=== PATIENT | female | born 1950 | race Caucasian/White ===

== ENCOUNTER → 2019-10-12 08:14 | Outpatient (CLI) | payer MEDICARE, OTHER, SELFPAY ==
--- NOTE | 2019-10-12 | DI.US.S_ITS ---
PROCEDURE: US PELVIC COMPLETE INDICATIONS: PMB TECHNIQUE: Real-time scanning was performed of the pelvic organs, with image documentation. Additional endovaginal scanning was necessary due to incomplete visualization of the adnexal and endometrial structures by transabdominal scanning. COMPARISON: [facility], CT, IVP (ABD & PEL WWO CONTRAST), 07/20/2016, 15:30. FINDINGS: Transabdominal scanning: Limited scanning through the kidneys shows no hydronephrosis. No pathologic free abdominal or pelvic fluid. Endovaginal scanning: Uterus: Uterus is normal in size at 6.9 x 3.0 cm. The endometrium measures 6.6 mm in combined thickness. Endometrium is heterogeneous with multiple small echogenic foci. 2 small intramural fibroids, largest measuring up to 1.2 cm. Ovaries: Ovaries not identified. IMPRESSION: Thickening of the endometrial complex in this postmenopausal female with history of vaginal bleeding as well as diffuse heterogeneity. Underlying neoplasm cannot be excluded and endometrial biopsy recommended. 2 small intramural fibroids. Dictated by: Milo VEGAS Interpreted: Roro Shahid MD on 10/12/2019 at 9:17 Approved by: Roro Shahid M.D. on 10/12/2019 at 14:09
== END ==
PROVIDERS: Family Provider Internal Medicine; Visit Provider Nurse Practitioner Women's Health
DX: N95.0 Postmenopausal bleeding (principal); D25.1 Intramural leiomyoma of uterus; R93.89 Abnormal findings on diagnostic imaging of other specified body structures
CPT/HCPCS: 76830; 76856

== ENCOUNTER → 2020-02-26 14:21 | Outpatient (CLI) | payer MEDICARE, OTHER, SELFPAY | PROVIDERS: Family Provider Internal Medicine; Referring Provider Obstetrics & Gynecology; Visit Provider Obstetrics & Gynecology | DX: Z01.810 Encounter for preprocedural cardiovascular examination (principal); Z01.10 Encounter for examination of ears and hearing without abnormal findings | CPT/HCPCS: 93005; 93010 ==

== ENCOUNTER → 2020-06-02 19:02 | Outpatient (CLI) | payer MEDICARE, OTHER, SELFPAY ==
--- NOTE | 2020-06-02 19:04 | DI.MRI.S_ITS ---
PROCEDURE: MR LUMBAR SPINE WO CON INDICATIONS: RIGHT LEG WEAKNESS TECHNIQUE: Noncontrast sagittal T1 spin echo and T2 fast echo, sagittal STIR, axial T1 and T2 fast spin echo through the lumbar spine. In cases with scoliosis, additional coronal T2 fast spin echo may be performed. COMPARISON: [facility], CT, IVP (ABD & PEL WWO CONTRAST), 07/20/2016, 15:30. FINDINGS: Image quality: Excellent. Alignment and Curvature: Trace degenerative retrolisthesis of L4 on L5. Trace degenerative anterolisthesis of L3 on L4. Trace degenerative retrolisthesis of T12 on L1. Please note that numbering indicates the axial imaging as having started at T11-T12, and that L5 is partially sacralized. Bone Marrow: Marrow is of normal overall signal. No acute vertebral body compression fractures. Spinal Cord: Conus medullaris terminates at the top of L1 level. Visualized cord demonstrates normal signal and size. Paraspinous Soft Tissues: No paravertebral masses. T11-T12: No canal stenosis or foraminal stenosis. T12-L1: Moderate diffuse disc bulge. No canal stenosis or foraminal stenosis. L1-L2: Mild facet hypertrophy. Minimal disc bulge. No canal stenosis or foraminal stenosis. L2-L3: Mild disc bulge. Facet and ligament hypertrophy. Mild canal stenosis. No foraminal stenosis. L3-L4: There is a large free disc fragment which has migrated superior to the disc space, eccentric to the right. It measures approximately 1.4 x 1.7 x 0.6 cm. It impinges the right L3 nerve root in the right lateral recess and entrance into the foramen, and posteriorly deviates the right L4 nerve root in the right lateral recess. At the level of the disc, there is moderate diffuse disc bulge and prominent facet and ligament hypertrophy resulting in moderate to severe canal stenosis. There is mild bilateral foraminal narrowing. L4-L5: Moderate to severe disc height loss, chronic. Broad-based mild left paracentral disc protrusion deviating the left L5 nerve root posteriorly in the left lateral recess. Moderate bilateral foraminal narrowing. L5-S1: Partially sacralized L5 vertebra. No canal stenosis. IMPRESSION: 1. Please note that the numbering assumes that the vertebral body is labeled as L5 is partially sacralized, and that axial imaging is labeled as having occurred from T11-T12 through L5-S1. Careful correlation for correct surgical level is necessary. 2. At L3-L4, there is a large free disc fragment which has migrated superiorly into the right lateral recess. It impinges on the right L3 root above the foramen and at the entrance to the foramen, and posteriorly deviates the right L4 nerve root in the right lateral recess. At the level of the disc space at L3-L4 there is moderate to severe multifactorial canal stenosis. New line 3. At L4-L5, there is a broad-based mild left paracentral disc protrusion which deviates the left L5 nerve root in the left lateral recess. Dictated by: Jayjay Trejo M.D. on 06/03/2020 at 9:33 Approved by: Jayjay Trejo M.D. on 06/03/2020 at 9:47
--- NOTE | 2020-06-02 19:04 | DI.MRI.S_ITS ---
PROCEDURE: MR HEAD/BRAIN WO CON INDICATIONS: RIGHT LEG WEAKNESS TECHNIQUE: Noncontrast axial T1 spin echo, axial T2 fast spin echo, sagittal and axial FLAIR, coronal T2 fast spin echo, axial gradient echo, axial diffusion and ADC through the brain. COMPARISON: None. FINDINGS: Image quality: Excellent. CSF Spaces: Basal cisterns are patent. No extra-axial fluid collections. Ventricles are normal in size and shape. Brain: No intracranial masses or hemorrhage. Leos/white matter interface is normal. Brainstem appears normal. Diffusion-weighted images demonstrate no acute ischemic insult. No chronic ischemic insults. Normal intravascular flow voids are present. Skull and face: Calvarium has normal marrow signal. Orbits appear normal. Sinuses: Sinuses and mastoids are clear. IMPRESSION: Normal for age, source of current right leg weakness symptoms is not seen. Dictated by: Jamaal Bowman M.D. on 06/03/2020 at 9:25 Approved by: Jamaal Bowman M.D. on 06/03/2020 at 9:26
== END ==
PROVIDERS: Family Provider Internal Medicine; Referring Provider Internal Medicine; Visit Provider Internal Medicine
DX: R29.898 Other symptoms and signs involving the musculoskeletal system (principal); M48.061 Spinal stenosis, lumbar region without neurogenic claudication; M51.26 Other intervertebral disc displacement, lumbar region
CPT/HCPCS: 70551; 72148

== ENCOUNTER → 2020-06-06 16:33 | Outpatient (CLI) | payer MEDICARE, OTHER, SELFPAY ==
--- NOTE | 2020-06-06 | DI.RAD.S_ITS ---
PROCEDURE: XR LUMBAR SPINE 2-3V INDICATIONS: LOW BACK PAIN injury one week ago TECHNIQUE: 3 views of the lumbar spine were acquired. COMPARISON: [facility], MR, MR LUMBAR SPINE WO CON, 06/02/2020, 19:36. FINDINGS: Bones: This patient has transitional lumbar anatomy. For the purposes of this examination, the level with the last visualized disc space is considered to be L5-S1. This numbering scheme is does not remain consistent with a prior lumbar report. By this numbering scheme, the L5 level is highly sacralized. Mild levoconvex scoliotic curvature is noted. Mild retrolisthesis is seen at the T12-L1 level. Minimal anterolisthesis is seen at L3-L4. There is at least moderate disc space narrowing seen at L4-L5. Mild disc space narrowing is seen at L3-L4. L5-S1 disc level is a rudimentary, transitional disc. Lower lumbar spine facet arthropathy is seen. No displaced fractures are seen. No suspicious lytic or blastic lesions are seen. Soft tissues: Overlying bowel gas pattern is normal. No suspicious soft tissue calcifications. IMPRESSION: No acute fractures are seen. If there is point tenderness (or other clinical suspicion for a fracture not seen on these images) please consider a dedicated CT for further evaluation. Degenerative changes are seen, which are worst at L4-L5. Transitional lumbar anatomy. Mild levoconvex scoliotic curvature is noted. Dictated by: Golden Drake M.D. on 06/06/2020 at 16:47 Approved by: Golden Drake M.D. on 06/06/2020 at 16:49
== END ==
PROVIDERS: Family Provider Internal Medicine; Referring Provider Internal Medicine; Visit Provider Internal Medicine
DX: M54.5 Low back pain (principal); M47.816 Spondylosis without myelopathy or radiculopathy, lumbar region
CPT/HCPCS: 72100

== ENCOUNTER → 2020-06-07 09:20 | Outpatient (CLI) | payer MEDICARE, OTHER, SELFPAY ==
[2020-06-07 10:17] LABS: Hematocrit 43.6 % (36-46); Hemoglobin 14.4 g/dL (12.0-16.0); Mean Corpuscular Hemoglobin 30.3 PG (26-34); Mean Corpuscular Volume 91.7 fL (80-100); Platelet Count 226 X10^3/uL (150-400); Red Blood Cell Count 4.75 X10^6/uL (4.0-5.2); Red Cell Distribution Width 13.6 % (11.6-14.8); White Blood Cell Count 4.9 X10^3/uL (4.5-11.0)
[2020-06-07 10:32] LABS: Alanine Aminotransferase 57 IU/L (<35); Albumin 4.1 g/dL (3.5-5.0); Albumin Globulin Ratio 1.4 (1.0-2.8); Alkaline Phosphatase 73 U/L (38-126); Aspartate Aminotransferase 47 IU/L (14-36); BUN Creatinine Ratio 25.6 (6-22); Bilirubin Total 1.3 mg/dL (0.2-1.3); Blood Urea Nitrogen 21 mg/dL (7-17); Carbon Dioxide 28 mmol/L (22-32); Chloride 106 mmol/L (98-107); Cholesterol 227 mg/dL (140-199); Estimated Glomerular Filt Rate > 60.0 mL/min (>60); Globulin 2.9 g/dL (1.7-4.1); Glucose 104 mg/dL (80-110); HDL Cholesterol 65 mg/dL (40-60); HEMOLYSIS < 15 (0-50); LDL Cholesterol Calculated 143 mg/dL (<100); Potassium 4.2 mmol/L (3.4-5.1); Sodium 137 mmol/L (137-145); Triglycerides 94 mg/dL (35-150)
[2020-06-07 11:05] LABS: Vitamin D 25 Hydroxy (D3) 40.3 ng/mL (30.0-100.0)
[2020-06-07 11:06] LABS: Free T3, Triiodothyronine Free 2.93 pg/mL (2.77-5.27); Free T4, Direct Thyroxine 1.07 ng/dL (0.78-2.19)
[2020-06-07 11:19] LABS: Thyroid Stimulating Hormone 1.38 uIU/mL (0.47-4.68)
== END ==
PROVIDERS: Family Provider Internal Medicine; PCP Internal Medicine; Referring Provider Internal Medicine; Visit Provider Internal Medicine
DX: R53.83 Other fatigue (principal); E78.5 Hyperlipidemia, unspecified; M79.604 Pain in right leg; E55.9 Vitamin D deficiency, unspecified
CPT/HCPCS: 36415; 80053; 80061; 82306; 84439; 84443; 84481; 85027

== ENCOUNTER → 2020-06-29 18:56 | Outpatient (ROUT) | payer MEDICARE, OTHER, SELFPAY ==
[2020-07-01 06:00] LABS: HBsAg Screen Negative (Negative); Hep A AB IgM Negative (Negative); Hepatitis A Ab, Total Negative (Negative); Hepatitis B Core Antibody IgM Negative (Negative); Hepatitis B Core Total Negative (Negative); Hepatitis B Surface AB, Qual Non Reactive (.); Hepatitis C Virus Ab <0.1 s/co ratio (0.0-0.9)
== END ==
PROVIDERS: Family Provider Internal Medicine; PCP Internal Medicine; Visit Provider Internal Medicine
DX: R94.5 Abnormal results of liver function studies (principal)
CPT/HCPCS: 80074; 86704; 86706; 86708

== ENCOUNTER → 2020-07-18 09:05 | Outpatient (CLI) | payer MEDICARE, OTHER, SELFPAY ==
--- NOTE | 2020-07-18 | DI.US.S_ITS ---
ULTRASOUND OF LEFT BREAST: 07/18/2020 CLINICAL: Left diffuse breast pain 9-6 o'clock and patient returns today to evaluate a focal asymmetry in left breast. Comparison is made to exams dated: 07/18/2020 mammogram - [facility], 06/05/2019 mammogram, 07/08/2017 mammogram, and 06/27/2016 mammogram - [facility]. Color flow ultrasound of the left breast was performed. Leos scale images of the real-time examination were reviewed. There is a cyst in the left breast at 3 o'clock posterior depth. This cyst displays internal echoes and posterior acoustic enhancement. IMPRESSION: PROBABLY BENIGN The cyst in the left breast is consistent with a complex cyst and is probably benign. A follow-up left mammogram and an ultrasound in 6 months is recommended to demonstrate stability. This exam was interpreted at Station ID: [id number]. Electronically Signed By: Aditya Shaw acr/:07/18/2020 11:40:12 copy to: Dr. Sykes, Dr. Sykes, [facility], ph: [phone] letter sent: Followup Recommended Ultrasound BI-RADS: 3 Probably benign
--- NOTE | 2020-07-18 | DI.MG.S_ITS ---
BILATERAL DIGITAL DIAGNOSTIC MAMMOGRAM 3D/2D: 07/18/2020 CLINICAL: Left breast pain. Comparison is made to exams dated: 06/05/2019 mammogram, 07/08/2017 mammogram, and 06/27/2016 mammogram - [facility]. The tissue of both breasts is predominantly fatty. There is an area of asymetry in the left breast at 1-4 o'clock with an indistinct margin. There also are stable benign grouped calcifications in the left breast middle depth central to the nipple seen on the craniocaudal view only. No other significant masses, calcifications, or other findings are seen in either breast. IMPRESSION: INCOMPLETE: NEEDS ADDITIONAL IMAGING EVALUATION The area of asymetry in the left breast at 1-4 o'clock is probably benign. US will be performed and dictated separately. This exam was interpreted at Station ID: [id number]. NOTE: For mammograms, a report in lay terms will be sent to the patient. Approximately 15% of breast malignancies will not be visualized mammographically. In the management of a palpable breast mass, a negative mammogram must not discourage biopsy of a clinically suspicious lesion. Electronically Signed By: Aditya Shaw acr/:07/20/2020 08:55:45 copy to: Dr. Sykes, Dr. Sykes, [facility], ph: [phone] ACR BI-RADS Category 0: Incomplete [id number]
== END ==
PROVIDERS: Family Provider Internal Medicine; PCP Internal Medicine; Referring Provider Internal Medicine; Visit Provider Internal Medicine
DX: R92.8 Other abnormal and inconclusive findings on diagnostic imaging of breast (principal); N64.4 Mastodynia; N60.02 Solitary cyst of left breast
CPT/HCPCS: 76642; 77066; G0279

== ENCOUNTER → 2020-09-16 09:40 | Outpatient (CLI) | payer MEDICARE, OTHER, SELFPAY ==
[2020-09-16 10:54] LABS: Alanine Aminotransferase 35 IU/L (<35); Albumin 4.2 g/dL (3.5-5.0); Albumin Globulin Ratio 1.6 (1.0-2.8); Alkaline Phosphatase 69 U/L (38-126); Aspartate Aminotransferase 31 IU/L (14-36); BUN Creatinine Ratio 19.2 (6-22); Bilirubin Total 1.5 mg/dL (0.2-1.3); Blood Urea Nitrogen 15 mg/dL (7-17); Calcium 9.2 mg/dL (8.4-10.2); Carbon Dioxide 28 mmol/L (22-32); Chloride 105 mmol/L (98-107); Cholesterol 231 mg/dL (140-199); Estimated Glomerular Filt Rate > 60.0 mL/min (>60); Globulin 2.7 g/dL (1.7-4.1); Glucose 98 mg/dL (80-110); HDL Cholesterol 94 mg/dL (40-60); HEMOLYSIS < 15 (0-50); LDL Cholesterol Calculated 123 mg/dL (<100); Potassium 3.9 mmol/L (3.4-5.1); Sodium 136 mmol/L (137-145); Total Protein 6.9 g/dL (6.3-8.2); Triglycerides 68 mg/dL (35-150)
== END ==
PROVIDERS: Family Provider Internal Medicine; PCP Internal Medicine; Referring Provider Internal Medicine; Visit Provider Internal Medicine
DX: E78.5 Hyperlipidemia, unspecified (principal); R73.01 Impaired fasting glucose
CPT/HCPCS: 80053; 80061

== ENCOUNTER 2020-10-03 09:00 | Outpatient (RCR) | payer MEDICARE, OTHER, SELFPAY ==
--- NOTE | 2020-07-11 11:24 | PT.OIE ---
Current Diagnoses Intervertebral disc disorders with radiculopathy, lumbar region (07/11/20) Past Medical History (Last Reviewed 06/08/20 @ 08:34 by Master Vega DO) Herniated nucleus pulposus, L3-4 right Lumbar radiculopathy Past Surgical History (Last Updated 06/08/20 @ 08:57 by Dea Murillo LPN) H/O breast biopsy H/O dilation and curettage H/O eye surgery Visit Care Team Role Provider Type Archana Jo MD Family Provider Physician Primary Care Provider Specialty: Internal Medicine Address: [address] [place] [address], [address] Email: [email or web address] Rodrigue Richardson, MSN, RN Attending Provider Non-Staff Referring Provider Specialty: Nursing Address: [address] [place] [address], [address], [place], [address] Email: Physical Therapy Initial Evaluation PT-OP-A Visit Information Start: 07/01/20 18:23 Freq: Status: Active Protocol: Document 07/11/20 11:24 LRN (Rec: 07/11/20 12:28 LRN [id number]) Out-Patient Physical Therapy Visit Information Visit Information Visit Type Initial Evaluation Visit Start Time 11:24 Visit Stop Time 12:24 Total Visit Minutes 60 Visit Number 1 Evaluation Information Evaluation Date 07/11/20 Precautions Precautions Fall history due to current condition. PT-OP-B Current Condition Start: 07/01/20 18:23 Freq: Status: Active Protocol: Document 07/11/20 11:24 LRN (Rec: 07/11/20 12:28 LRN [id number]) Current Condition History of Current Condition Onset Date May 25, 2020. Current Complaints R leg numbness and weakness. History of Current Condition Pt reports numbness and a tired feeling in the R leg. States she went hiking the other day and felt she was incapable of normal walking. States she used to stand on one leg with the other up on a counter to shave her legs, but now when trying to stand on R leg, her leg gives out. States she has fallen several times to the ground due to the RLE giving out. When having pain: Aches in groin anteriorly to ankle of RLE. A week after injury she saw a chiropractor friend and was referred to Dr. Vega who suggested an injection. She deferred and instead went to see her spouse's neurosurgeon (Dr. Francisco Lora) and was given a referral by his administrative services assistant PRAVEEN Edward at [facility]. Prior Treatments and Tests MRI @ [facility] indicates trace degenerative retrolisthesis of L4 on L5 and L3 onL4. Disc Bulge: T12-L1 Moderate diffuse, L1-L2 Minimal, L2-L3 Mild, L3-L4 Large free disc fragment that migrated superior to the disc space, eccentric to the right at L3-L4 impinging on the R L3 nerve root and posteriorly deviates the right L4 nerve root and moderate diffuse disc bulge and moderate to severe canal stenosis. Mild rod foraminal narrowing. L4-L5: Moderate to severe disc height loss, chronic & disc protrusion deviating the left L5 nerve root posteriorly. L5 vertebral body is partially sacralized. Future Testing and Treatments Planned Will follow up with Dr. Mcqueen the first of August. Developmental History Developmental History Pt states she herniated 2 discs, L4-5 or L3-4 when reached over and lifted something heavy with the R hand resulting in numbness in the R lateral thigh to anterior lower leg (lower leg is most painful). Initially pain was at groin and in front of the anterior leg. A week ago was stepping down from a chair and the R leg wouldn't hold her. Treatment Goals Patient/Caregiver Goals Pt goal: to stretch and be careful to develop strength in the R leg and core, and to regain strength and eliminate numbness of the R leg. Prior Functional Status Baseline Function- ADL's Independent Baseline Function- Mobility Independent Baseline Function- Gait Able to slow jog/fast walk, up to the neighbors when in a hurry, can't now. 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 Baseline Function- Recreation/Hobbies Hiked trails a couple miles a couple days a week. Current Functional Impairments (Reported) Functional Limitations- ADL's Not able to lift objects. Not able to slow jog/fast walk to neighbors house. Limited in descending stairs, steps, hiking due to RLE weakness. Functional Limitations- Work/School Gets up every hour to walk 500 + steps. R LE is numb but begins to hurt as the day goes on. 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 PT-OP-C Subjective Start: 07/01/20 18:23 Freq: Status: Active Protocol: Document 07/11/20 11:24 LRN (Rec: 07/11/20 12:28 LRN [id number]) Patient Questionnaires Oswestry Low Back Index Oswestry Score 48 Oswestry Impairment 40 to 59% Impaired (Score 40- 59) OP-PT Pain Assessment Pain Assessment Grid Paper Pain Assessment Grid Completed Yes Location R lower extremity Pain Location Details R LE from groin to ankle anteriorly. Intensity 4 Description Aching Frequency Intermittent Pain Duration Groin to ankle Pain Aggravating Factors Activity,Exercise,Standing, Stair Climbing,Lifting Other Pain Aggravating Factors Squatting. Other Pain Alleviating Factors Walking. Comments Pain Comments Pain is 2/10, ache is 4/10. Burning and shooting pain was at the beginning, not any longer. PT-OP-H Neuro Start: 07/01/20 18:23 Freq: Status: Active Protocol: Document 07/11/20 11:24 LRN (Rec: 07/11/20 12:28 LRN [id number]) Sensation Evaluation Gross Sensation Gross Sensation Right LE Impaired Sensation Description Numbness Dermatome Impairments L2,L3,L4 Deep Tendon Reflex & Clonus Assessment Deep Tendon Reflex Right Achilles Deep Tendon Reflex 1+ Diminished Right Patellar Deep Tendon Reflex 2+ Normal PT-OP-J Posture/Palpation/Skin Start: 07/01/20 18:23 Freq: Status: Active Protocol: Document 07/11/20 11:24 LRN (Rec: 07/11/20 12:28 LRN [id number]) Posture Evaluation Comments Posture Comments Mild forward head. Increased lumbar lordosis. R shoulder depressed, R hip elevated. C-curve lower thoracic to sacrum with apex on left. Palpation Assessment Location Lumbar Spine Palpation Location PA glide Spinous process L4-L5 Palpation Findings Tenderness Palpation Details Pt denies tenderness at R Lumbar Transverse processes and facets joints with PA pressure. Low back Palpation Location Lumbar paraspinals Palpation Findings Soft Tissue Tightness,Muscle Guarding Palpation Details Right worse than left. PT-OP-K Range of Motion Start: 07/01/20 18:23 Freq: Status: Active Protocol: Document 07/11/20 11:24 LRN (Rec: 07/11/20 18:48 LRN [id number]) Lumbar Spine Range of Motion Lumbar Spine Active Degrees Testing Position Standing Flexion 35 Extension 14 Rotation Left 45 Rotation Right 20 Lateral Flexion Left 15 Lateral Flexion Right 10 Hip Goniometric Range of Motion Hip Left Passive Testing Position Supine Straight Leg Raise 50 Abduction 35 Internal Rotation 30 External Rotation 70 Comments Active SLR was 50 deg's. Right Passive Testing Position Supine Straight Leg Raise 40 Abduction 30 Internal Rotation 35 External Rotation 55 Comments Active SLR was 30 deg's. PT-OP-L Special Tests Start: 07/01/20 18:23 Freq: Status: Active Protocol: Document 07/11/20 11:24 LRN (Rec: 07/11/20 18:48 LRN [id number]) Special Tests Lumbar Spine Special Tests Vertical Spine Loading Test Results - Comments No change in R LE symptoms Straight Leg Raise Test Results + right Comments Hamstring tightness report bilaterally Manual Traction Test Results - Comments No change in R LE symptoms PT-OP-M Strength Start: 07/01/20 18:23 Freq: Status: Active Protocol: Document 07/11/20 11:24 LRN (Rec: 07/11/20 18:48 LRN [id number]) Trunk Strength Trunk Manual Muscle Testing Testing Position Supine Core Stabilization Pt not able to maintain core stabilization with MMT of hip flexors and hip extensors. Pt was able to maintain core stability with MMT of hip AB/ AD. Hip Strength Hip Manual Muscle Testing Left Adduction 3 Fair Comments Strength is 5/5 except as indicated above. Right Flexion (L2) 2- Poor- Abduction 4 Good Adduction 3 Fair Comments Strength is 5/5 except as indicated above. Knee Strength Knee Manual Muscle Testing Left Comments Strength is 5/5 Right Flexion (S2) 4 Good Comments Strength is 5/5 except as indicated above. PT-OP-Q Treatments Start: 07/01/20 18:23 Freq: Status: Active Protocol: Document 07/11/20 11:24 LRN (Rec: 07/11/20 12:28 LRN [id number]) Self-Care/Home Management Treatment Education Patient Education Body Mechanics,Home Exercise Program,Posture Other Education Discussed in depth results of evaluation and plan of care. Educated pt in proper proper sitting posture and made recommendations for back support for proper posturing in sitting. Educated pt in proper back care of transferring sup<>sit using log roll technique. Activities Self-Care/Home Management Activities I/S pt in self care of proper posturing and transfers to minimize stress/strain on low back. PT-OP-T Assessment and Plan Start: 07/01/20 18:23 Freq: Status: Active Protocol: Document 07/11/20 11:24 LRN (Rec: 07/11/20 12:28 LRN [id number]) Physical Therapy Assessment Rehab Potential Rehabilitation Potential Good Evaluation Complexity Number of Personal Factors/Comorbidities 1-2 Number of Body Systems Impaired 4 or More Clinical Presentation at Evaluation Evolving Impairments Impairments Activity Tolerance,Pain,ROM, Sensation,Strength,Transfers Goals Three Impairment Dec'd core strength (not able to maintain core stability w/ LE resistance) Short Term Goal (STG) Pt will be educated in core stabilization program. STG Duration 08/08/20 Fpc Goal (LTG) Pt will be able to maintain core stability with resistance to the LE's resulting in decreased pain complaints with hiking/walking. LTG Duration 10/09/20 Two Impairment Decreased R LE strength Short Term Goal (STG) Increase R LE strength with pt able to SLS with confidence for no less than 30 secs. STG Duration 09/10/19 Fpc Goal (LTG) R LE strength of 5/5 with pt able to ambulate stairs with an alternating gait without fear of falling. LTG Duration 10/09/20 One Impairment Pt lacks appropriate self care HEP [employer] Drill Operator Goal (LTG) Pt will be independent in a self care HEP of flexibility and strengthening exercises. 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 She has limited trunk mobility and limited hip mobility (R worse than L). She has muscle guarding in the right low back and hips. Her strength with MMT was good except she has weakness of the R hip flexors (L1-L2) and Hamstrings (S2). She does present with a + PSLR on the right, but had no change in pain to manual lumbar traction, and she has decreased sensation in the R LE to soft touch and was accurate with sharp/dull testing 50% of the time in the lower leg (note: she was able to feel the difference between sharp/dull most of the time). This would indicate lumbar nerve involvement, but with lumbar traction she had no change in her symptoms, and she had no discomfort except with AP glides at spinous processes of L4-L5. Her symptoms are quite variable in nature. The pt will benefit from skilled physical therapy to decrease her R LE pain, improve strength and function to her prior level. The pt's rehabilitation may be prolonged due to the nature of her job requiring her to sit for prolonged periods of time, which is not ideal in recovering from a back injury. Physical Therapy Plan Frequency and Duration Frequency of Treatment 2x/Week Plan of Care Start Date 07/11/20 Plan of Care End Date 10/09/20 Therapeutic Interventions Therapeutic Interventions Home Exercise Program,Joint Mobilizations,Manual Therapy, Neuromuscular Re-education, Patient/Caregiver Education, Self-Care/Home Management,Soft Tissue Mobilization,Taping, Therapeutic Activities, Therapeutic Exercises Modalities Cold Pack/Ice Massage,Electric Stimulation,Hot Packs, Traction- Mechanical, Ultrasound Next Visit Focus/Plan Next Note Type Treatment Note Next Visit Plan Initiate LE neural stretches, STM, manual/mechanical lumbar traction, possible use of MH/ IFES [lumbar region]. Assess leg length and pelvic positioning. Progress towards improved spine posture ( current C-curve with apex on L ), and improve body mechanics and core stability.
--- NOTE | 2020-07-11 11:24 | PT.OPPOC ---
Physical, Occupational & Speech Therapy At [facility] Current Diagnoses Intervertebral disc disorders with radiculopathy, lumbar region (07/11/20) Visit Care Team Role Provider Type Archana Jo MD Family Provider Physician Primary Care Provider Specialty: Internal Medicine Address: [address] [place] [address], [address] Email: [email or web address] Rodrigue Richardson, MSN, RN Attending Provider Non-Staff Referring Provider Specialty: Nursing Address: [address] [place] [address], [address], [place], [address] Email: Plan Of Care PT-OP-T Assessment and Plan Start: 07/01/20 18:23 Freq: Status: Active Protocol: Document 07/11/20 11:24 LRN (Rec: 07/11/20 12:28 LRN [id number]) Physical Therapy Assessment Rehab Potential Rehabilitation Potential Good Evaluation Complexity Number of Personal Factors/Comorbidities 1-2 Number of Body Systems Impaired 4 or More Clinical Presentation at Evaluation Evolving Impairments Impairments Activity Tolerance,Pain,ROM, Sensation,Strength,Transfers Goals Three Impairment Dec'd core strength (not able to maintain core stability w/ LE resistance) Short Term Goal (STG) Pt will be educated in core stabilization program. STG Duration 08/08/20 Squad Leader Goal (LTG) Pt will be able to maintain core stability with resistance to the LE's resulting in decreased pain complaints with hiking/walking. LTG Duration 10/09/20 Two Impairment Decreased R LE strength Short Term Goal (STG) Increase R LE strength with pt able to SLS with confidence for no less than 30 secs. STG Duration 09/10/19 Skilled Nursing Goal (LTG) R LE strength of 5/5 with pt able to ambulate stairs with an alternating gait without fear of falling. LTG Duration 10/09/20 One Impairment Pt lacks appropriate self care HEP Squad Leader Goal (LTG) Pt will be independent in a self care HEP of flexibility and strengthening exercises. 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 She has limited trunk mobility and limited hip mobility (R worse than L). She has muscle guarding in the right low back and hips. Her strength with MMT was good except she has weakness of the R hip flexors (L1-L2) and Hamstrings (S2). She does present with a + PSLR on the right, but had no change in pain to manual lumbar traction, and she has decreased sensation in the R LE to soft touch and was accurate with sharp/dull testing 50% of the time in the lower leg (note: she was able to feel the difference between sharp/dull most of the time). This would indicate lumbar nerve involvement, but with lumbar traction she had no change in her symptoms, and she had no discomfort except with AP glides at spinous processes of L4-L5. Her symptoms are quite variable in nature. The pt will benefit from skilled physical therapy to decrease her R LE pain, improve strength and function to her prior level. The pt's rehabilitation may be prolonged due to the nature of her job requiring her to sit for prolonged periods of time, which is not ideal in recovering from a back injury. Physical Therapy Plan Frequency and Duration Frequency of Treatment 2x/Week Plan of Care Start Date 07/11/20 Plan of Care End Date 10/09/20 Therapeutic Interventions Therapeutic Interventions Home Exercise Program,Joint Mobilizations,Manual Therapy, Neuromuscular Re-education, Patient/Caregiver Education, Self-Care/Home Management,Soft Tissue Mobilization,Taping, Therapeutic Activities, Therapeutic Exercises Modalities Cold Pack/Ice Massage,Electric Stimulation,Hot Packs, Traction- Mechanical, Ultrasound Next Visit Focus/Plan Next Note Type Treatment Note Next Visit Plan Initiate LE neural stretches, STM, manual/mechanical lumbar traction, possible use of MH/ IFES [lumbar region]. Assess leg length and pelvic positioning. Progress towards improved spine posture ( current C-curve with apex on L ), and improve body mechanics and core stability. Plan of Care Dates Plan of Care Start Date 07/11/20 Plan of Care End Date 10/09/20 Electronically Signed by: Archana Clemons, PT 07/14/20 0864 Please Sign and Return: I have reviewed this Plan of Care and certify that the skilled therapy services above are required to meet the patient?s needs. Physician Signature Date Printed Name and Credentials Clinical Instructor Signature Printed Name and Credentials
--- NOTE | 2020-07-14 10:57 | PT.OTN ---
Current Diagnoses Intervertebral disc disorders with radiculopathy, lumbar region (07/14/20) Physical Therapy Treatment Note PT-OP-A Visit Information Start: 07/01/20 18:23 Freq: Status: Active Protocol: Document 07/14/20 09:57 LRN (Rec: 07/14/20 10:55 LRN [id number]) Out-Patient Physical Therapy Visit Information Visit Information Visit Type Treatment Note Visit Start Time 09:57 Visit Stop Time 10:40 Total Visit Minutes 43 Visit Number 2 Evaluation Information Evaluation Date 07/11/20 Precautions Precautions Fall history due to current condition. PT-OP-B Current Condition Start: 07/01/20 18:23 Freq: Status: Active Protocol: Document 07/11/20 11:24 LRN (Rec: 07/11/20 12:28 LRN [id number]) Current Condition History of Current Condition Onset Date May 25, 2020. Current Complaints R leg numbness and weakness. History of Current Condition Pt reports numbness and a tired feeling in the R leg. States she went hiking the other day and felt she was incapable of normal walking. States she used to stand on one leg with the other up on a counter to shave her legs, but now when trying to stand on R leg, her leg gives out. States she has fallen several times to the ground due to the RLE giving out. When having pain: Aches in groin anteriorly to ankle of RLE. A week after injury she saw a chiropractor friend and was referred to Dr. Vega who suggested an injection. She deferred and instead went to see her spouse's neurosurgeon (Dr. Francisco Lora) and was given a referral by his food and beverage assistant manager PRAVEEN Edward at [facility]. Prior Treatments and Tests MRI @ [facility] indicates trace degenerative retrolisthesis of L4 on L5 and L3 onL4. Disc Bulge: T12-L1 Moderate diffuse, L1-L2 Minimal, L2-L3 Mild, L3-L4 Large free disc fragment that migrated superior to the disc space, eccentric to the right at L3-L4 impinging on the R L3 nerve root and posteriorly deviates the right L4 nerve root and moderate diffuse disc bulge and moderate to severe canal stenosis. Mild rod foraminal narrowing. L4-L5: Moderate to severe disc height loss, chronic & disc protrusion deviating the left L5 nerve root posteriorly. L5 vertebral body is partially sacralized. Future Testing and Treatments Planned Will follow up with Dr. Mcqueen the first of August. Developmental History Developmental History Pt states she herniated 2 discs, L4-5 or L3-4 when reached over and lifted something heavy with the R hand resulting in numbness in the R lateral thigh to anterior lower leg (lower leg is most painful). Initially pain was at groin and in front of the anterior leg. A week ago was stepping down from a chair and the R leg wouldn't hold her. Treatment Goals Patient/Caregiver Goals Pt goal: to stretch and be careful to develop strength in the R leg and core, and to regain strength and eliminate numbness of the R leg. Prior Functional Status Baseline Function- ADL's Independent Baseline Function- Mobility Independent Baseline Function- Gait Able to slow jog/fast walk, up to the neighbors when in a hurry, can't now. 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 Baseline Function- Recreation/Hobbies Hiked trails a couple miles a couple days a week. Current Functional Impairments (Reported) Functional Limitations- ADL's Not able to lift objects. Not able to slow jog/fast walk to neighbors house. Limited in descending stairs, steps, hiking due to RLE weakness. Functional Limitations- Work/School Gets up every hour to walk 500 + steps. R LE is numb but begins to hurt as the day goes on. 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 PT-OP-C Subjective Start: 07/01/20 18:23 Freq: Status: Active Protocol: Document 07/14/20 09:57 LRN (Rec: 07/14/20 10:55 LRN [id number]) OP-PT Subjective Patient Comments Patient Comments Sitting both legs go numb on couch. Today the R anterior lower leg is numb. No pain. PT-OP-H Neuro Start: 07/01/20 18:23 Freq: Status: Active Protocol: Document 07/11/20 11:24 LRN (Rec: 07/11/20 12:28 LRN [id number]) Sensation Evaluation Gross Sensation Gross Sensation Right LE Impaired Sensation Description Numbness Dermatome Impairments L2,L3,L4 Deep Tendon Reflex & Clonus Assessment Deep Tendon Reflex Right Achilles Deep Tendon Reflex 1+ Diminished Right Patellar Deep Tendon Reflex 2+ Normal PT-OP-J Posture/Palpation/Skin Start: 07/01/20 18:23 Freq: Status: Active Protocol: Document 07/11/20 11:24 LRN (Rec: 07/11/20 12:28 LRN [id number]) Posture Evaluation Comments Posture Comments Mild forward head. Increased lumbar lordosis. R shoulder depressed, R hip elevated. C-curve lower thoracic to sacrum with apex on left. Palpation Assessment Location Lumbar Spine Palpation Location PA glide Spinous process L4-L5 Palpation Findings Tenderness Palpation Details Pt denies tenderness at R Lumbar Transverse processes and facets joints with PA pressure. Low back Palpation Location Lumbar paraspinals Palpation Findings Soft Tissue Tightness,Muscle Guarding Palpation Details Right worse than left. PT-OP-K Range of Motion Start: 07/01/20 18:23 Freq: Status: Active Protocol: Document 07/11/20 11:24 LRN (Rec: 07/11/20 18:48 LRN [id number]) Lumbar Spine Range of Motion Lumbar Spine Active Degrees Testing Position Standing Flexion 35 Extension 14 Rotation Left 45 Rotation Right 20 Lateral Flexion Left 15 Lateral Flexion Right 10 Hip Goniometric Range of Motion Hip Left Passive Testing Position Supine Straight Leg Raise 50 Abduction 35 Internal Rotation 30 External Rotation 70 Comments Active SLR was 50 deg's. Right Passive Testing Position Supine Straight Leg Raise 40 Abduction 30 Internal Rotation 35 External Rotation 55 Comments Active SLR was 30 deg's. PT-OP-L Special Tests Start: 07/01/20 18:23 Freq: Status: Active Protocol: Document 07/11/20 11:24 LRN (Rec: 07/11/20 18:48 LRN [id number]) Special Tests Lumbar Spine Special Tests Vertical Spine Loading Test Results - Comments No change in R LE symptoms Straight Leg Raise Test Results + right Comments Hamstring tightness report bilaterally Manual Traction Test Results - Comments No change in R LE symptoms PT-OP-M Strength Start: 07/01/20 18:23 Freq: Status: Active Protocol: Document 07/11/20 11:24 LRN (Rec: 07/11/20 18:48 LRN [id number]) Trunk Strength Trunk Manual Muscle Testing Testing Position Supine Core Stabilization Pt not able to maintain core stabilization with MMT of hip flexors and hip extensors. Pt was able to maintain core stability with MMT of hip AB/ AD. Hip Strength Hip Manual Muscle Testing Left Adduction 3 Fair Comments Strength is 5/5 except as indicated above. Right Flexion (L2) 2- Poor- Abduction 4 Good Adduction 3 Fair Comments Strength is 5/5 except as indicated above. Knee Strength Knee Manual Muscle Testing Left Comments Strength is 5/5 Right Flexion (S2) 4 Good Comments Strength is 5/5 except as indicated above. PT-OP-Q Treatments Start: 07/01/20 18:23 Freq: Status: Active Protocol: Document 07/14/20 09:57 LRN (Rec: 07/14/20 10:55 LRN [id number]) Therapeutic Exercises Supine Exercises TA Supine Exercise Name TA Reps/Minutes 4' Therapeutic Activity Therapeutic Activity Sidelie <> Supine Name Training for proper posturing and awareness training Reps/Minutes 5' Sit <> Stand Name Training for proper posturing and awareness training Reps/Minutes 5' Manual Therapy Treatment Manual Traction Lumbar Details Manual lumbar traction with belt. Body Position Supine Reps/Duration 4' Self-Care/Home Management Treatment Education Patient Education Body Mechanics,Joint Protection,Posture Other Education Transfer training, posture training sitting & standing. Activities Self-Care/Home Management Activities Issued & reviewed HEP for TA tightening. PT-OP-R Modalities Start: 07/01/20 18:23 Freq: Status: Active Protocol: Document 07/14/20 09:57 LRN (Rec: 07/14/20 10:55 LRN [id number]) Electric Stimulation Electric Stimulation Interferential Current (IFC) Body Location [L5], L1 to Glut Max lateral to SIJ's Duration (Minutes) 10 Intensity 23>20 Target/Sweep Sweep Patient Position Hooklying Combined With Heat/Cold Hot Pack Comments Discomfort on R low back Hot Pack/Cold Pack Treatment Hot Pack Location Low Back Patient Position Hooklying Treatment Duration (minutes) 10 PT-OP-T Assessment and Plan Start: 07/01/20 18:23 Freq: Status: Active Protocol: Document 07/14/20 09:57 LRN (Rec: 07/14/20 10:55 LRN [id number]) Physical Therapy Assessment Goals Three Impairment Dec'd core strength (not able to maintain core stability w/ LE resistance) Short Term Goal (STG) Pt will be educated in core stabilization program. STG Duration 08/08/20 Integrated Pest Management Technician Goal (LTG) Pt will be able to maintain core stability with resistance to the LE's resulting in decreased pain complaints with hiking/walking. LTG Duration 10/09/20 Two Impairment Decreased R LE strength Short Term Goal (STG) Increase R LE strength with pt able to SLS with confidence for no less than 30 secs. STG Duration 09/10/19 Integrated Pest Management Technician Goal (LTG) R LE strength of 5/5 with pt able to ambulate stairs with an alternating gait without fear of falling. LTG Duration 10/09/20 One Impairment Pt lacks appropriate self care HEP Integrated Pest Management Technician Goal (LTG) Pt will be independent in a self care HEP of flexibility and strengthening exercises. LTG Duration 10/09/20 Assessment Summary Assessment Pt demonstrated improved body mechanics with transfers and had no onset of symptoms during transfers or lumbar traction. Pt EStim intensity was high, possibly due to pt's high pain tolerance, with pt feeling good during therapy and less discomfort when stopped. Physical Therapy Plan Frequency and Duration Frequency of Treatment 2x/Week Plan of Care Start Date 07/11/20 Plan of Care End Date 10/09/20 Next Visit Focus/Plan Next Note Type Treatment Note Next Visit Plan Assess response to IFES (lower intensity during treatment if increased discomfort) and manual lumbar traction. Review transfers and TA ex. Progress lumbar stabilization and initiate R LE strengthening when appropriate . Initiate LE neural stretches, STM, manual/ mechanical lumbar traction, possible use of MH/IFES [ lumbar region]. Assess leg length and pelvic positioning. Progress towards improved spine posture (current C-curve with apex on L), and improve core stability.
--- NOTE | 2020-07-18 12:23 | PT.OTN ---
Current Diagnoses Intervertebral disc disorders with radiculopathy, lumbar region (07/18/20) Physical Therapy Treatment Note PT-OP-A Visit Information Start: 07/01/20 18:23 Freq: Status: Active Protocol: Document 07/18/20 11:32 LRN (Rec: 07/18/20 12:20 LRN [id number]) Out-Patient Physical Therapy Visit Information Visit Information Visit Type Treatment Note Visit Start Time 11:33 Visit Stop Time 12:18 Total Visit Minutes 45 Visit Number 3 Evaluation Information Evaluation Date 07/11/20 Precautions Precautions Fall history due to current condition. PT-OP-B Current Condition Start: 07/01/20 18:23 Freq: Status: Active Protocol: Document 07/11/20 11:24 LRN (Rec: 07/11/20 12:28 LRN [id number]) Current Condition History of Current Condition Onset Date May 25, 2020. Current Complaints R leg numbness and weakness. History of Current Condition Pt reports numbness and a tired feeling in the R leg. States she went hiking the other day and felt she was incapable of normal walking. States she used to stand on one leg with the other up on a counter to shave her legs, but now when trying to stand on R leg, her leg gives out. States she has fallen several times to the ground due to the RLE giving out. When having pain: Aches in groin anteriorly to ankle of RLE. A week after injury she saw a chiropractor friend and was referred to Dr. Vega who suggested an injection. She deferred and instead went to see her spouse's neurosurgeon (Dr. Francisco Lora) and was given a referral by his housekeeper and laundry assistant PRAVEEN Edward at [facility]. Prior Treatments and Tests MRI @ [facility] indicates trace degenerative retrolisthesis of L4 on L5 and L3 onL4. Disc Bulge: T12-L1 Moderate diffuse, L1-L2 Minimal, L2-L3 Mild, L3-L4 Large free disc fragment that migrated superior to the disc space, eccentric to the right at L3-L4 impinging on the R L3 nerve root and posteriorly deviates the right L4 nerve root and moderate diffuse disc bulge and moderate to severe canal stenosis. Mild rod foraminal narrowing. L4-L5: Moderate to severe disc height loss, chronic & disc protrusion deviating the left L5 nerve root posteriorly. L5 vertebral body is partially sacralized. Future Testing and Treatments Planned Will follow up with Dr. Mcqueen the first of August. Developmental History Developmental History Pt states she herniated 2 discs, L4-5 or L3-4 when reached over and lifted something heavy with the R hand resulting in numbness in the R lateral thigh to anterior lower leg (lower leg is most painful). Initially pain was at groin and in front of the anterior leg. A week ago was stepping down from a chair and the R leg wouldn't hold her. Treatment Goals Patient/Caregiver Goals Pt goal: to stretch and be careful to develop strength in the R leg and core, and to regain strength and eliminate numbness of the R leg. Prior Functional Status Baseline Function- ADL's Independent Baseline Function- Mobility Independent Baseline Function- Gait Able to slow jog/fast walk, up to the neighbors when in a hurry, can't now. 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 Baseline Function- Recreation/Hobbies Hiked trails a couple miles a couple days a week. Current Functional Impairments (Reported) Functional Limitations- ADL's Not able to lift objects. Not able to slow jog/fast walk to neighbors house. Limited in descending stairs, steps, hiking due to RLE weakness. Functional Limitations- Work/School Gets up every hour to walk 500 + steps. R LE is numb but begins to hurt as the day goes on. 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 PT-OP-C Subjective Start: 07/01/20 18:23 Freq: Status: Active Protocol: Document 07/18/20 11:32 LRN (Rec: 07/18/20 12:20 LRN [id number]) OP-PT Subjective Patient Comments Patient Comments States she is better, did 10, 000 steps with walking. No pain. On walk did get numbness in the lower R leg. The heat/EStim was very helpful because she felt less pain in low back (Iliac crest level). If not careful how she sits it hurts). PT-OP-H Neuro Start: 07/01/20 18:23 Freq: Status: Active Protocol: Document 07/11/20 11:24 LRN (Rec: 07/11/20 12:28 LRN [id number]) Sensation Evaluation Gross Sensation Gross Sensation Right LE Impaired Sensation Description Numbness Dermatome Impairments L2,L3,L4 Deep Tendon Reflex & Clonus Assessment Deep Tendon Reflex Right Achilles Deep Tendon Reflex 1+ Diminished Right Patellar Deep Tendon Reflex 2+ Normal PT-OP-J Posture/Palpation/Skin Start: 07/01/20 18:23 Freq: Status: Active Protocol: Document 07/11/20 11:24 LRN (Rec: 07/11/20 12:28 LRN [id number]) Posture Evaluation Comments Posture Comments Mild forward head. Increased lumbar lordosis. R shoulder depressed, R hip elevated. C-curve lower thoracic to sacrum with apex on left. Palpation Assessment Location Lumbar Spine Palpation Location PA glide Spinous process L4-L5 Palpation Findings Tenderness Palpation Details Pt denies tenderness at R Lumbar Transverse processes and facets joints with PA pressure. Low back Palpation Location Lumbar paraspinals Palpation Findings Soft Tissue Tightness,Muscle Guarding Palpation Details Right worse than left. PT-OP-K Range of Motion Start: 07/01/20 18:23 Freq: Status: Active Protocol: Document 07/11/20 11:24 LRN (Rec: 07/11/20 18:48 LRN [id number]) Lumbar Spine Range of Motion Lumbar Spine Active Degrees Testing Position Standing Flexion 35 Extension 14 Rotation Left 45 Rotation Right 20 Lateral Flexion Left 15 Lateral Flexion Right 10 Hip Goniometric Range of Motion Hip Left Passive Testing Position Supine Straight Leg Raise 50 Abduction 35 Internal Rotation 30 External Rotation 70 Comments Active SLR was 50 deg's. Right Passive Testing Position Supine Straight Leg Raise 40 Abduction 30 Internal Rotation 35 External Rotation 55 Comments Active SLR was 30 deg's. PT-OP-L Special Tests Start: 07/01/20 18:23 Freq: Status: Active Protocol: Document 07/11/20 11:24 LRN (Rec: 07/11/20 18:48 LRN [id number]) Special Tests Lumbar Spine Special Tests Vertical Spine Loading Test Results - Comments No change in R LE symptoms Straight Leg Raise Test Results + right Comments Hamstring tightness report bilaterally Manual Traction Test Results - Comments No change in R LE symptoms PT-OP-M Strength Start: 07/01/20 18:23 Freq: Status: Active Protocol: Document 07/11/20 11:24 LRN (Rec: 07/11/20 18:48 LRN [id number]) Trunk Strength Trunk Manual Muscle Testing Testing Position Supine Core Stabilization Pt not able to maintain core stabilization with MMT of hip flexors and hip extensors. Pt was able to maintain core stability with MMT of hip AB/ AD. Hip Strength Hip Manual Muscle Testing Left Adduction 3 Fair Comments Strength is 5/5 except as indicated above. Right Flexion (L2) 2- Poor- Abduction 4 Good Adduction 3 Fair Comments Strength is 5/5 except as indicated above. Knee Strength Knee Manual Muscle Testing Left Comments Strength is 5/5 Right Flexion (S2) 4 Good Comments Strength is 5/5 except as indicated above. PT-OP-Q Treatments Start: 07/01/20 18:23 Freq: Status: Active Protocol: Document 07/18/20 11:32 LRN (Rec: 07/18/20 12:20 LRN [id number]) Therapeutic Exercises Supine Exercises TA w/BKFO Supine Exercise Name TA w/BKFO Side bilateral Reps/Minutes 17' Comments Awareness training w/self palp & use of stick across ASIS' TA Supine Exercise Name TA Reps/Minutes 6' Therapeutic Activity Therapeutic Activity Sidelie <> Supine Name Transfer training Reps/Minutes 3' Manual Therapy Treatment Manual Traction Lumbar Details Manual lumbar traction with belt. Body Position Supine Reps/Duration 3' Self-Care/Home Management Treatment Education Patient Education Home Exercise Program Activities Self-Care/Home Management Activities Issued & reviewed HEP: Progressive Stability/Core strengthening and started #1/ 5.Pelvic Brace and if pt is able to hold 10 secs, & #2/5. Knee out. PT-OP-R Modalities Start: 07/01/20 18:23 Freq: Status: Active Protocol: Document 07/18/20 11:32 LRN (Rec: 07/18/20 12:20 LRN [id number]) Electric Stimulation Electric Stimulation Interferential Current (IFC) Body Location [L5], L1 to Glut Max lateral to SIJ's Duration (Minutes) 15 Intensity 8 Target/Sweep Sweep Patient Position Hooklying Combined With Heat/Cold Hot Pack Comments Discomfort on R low back Hot Pack/Cold Pack Treatment Hot Pack Location Low Back Patient Position Hooklying Treatment Duration (minutes) 15 Comments Extra towel layer. PT-OP-T Assessment and Plan Start: 07/01/20 18:23 Freq: Status: Active Protocol: Document 07/18/20 11:32 LRN (Rec: 07/18/20 12:20 LRN [id number]) Physical Therapy Assessment Goals Three Impairment Dec'd core strength (not able to maintain core stability w/ LE resistance) Short Term Goal (STG) Pt will be educated in core stabilization program. STG Duration 08/08/20 (07/18/20: Initiated & progressing) [facility] Goal (LTG) Pt will be able to maintain core stability with resistance to the LE's resulting in decreased pain complaints with hiking/walking. LTG Duration 10/09/20 Two Impairment Decreased R LE strength Short Term Goal (STG) Increase R LE strength with pt able to SLS with confidence for no less than 30 secs. STG Duration 09/10/19 [facility] Goal (LTG) R LE strength of 5/5 with pt able to ambulate stairs with an alternating gait without fear of falling. LTG Duration 10/09/20 One Impairment Pt lacks appropriate self care HEP [facility] Goal (LTG) Pt will be independent in a self care HEP of flexibility and strengthening exercises. LTG Duration 10/09/20 (07/18/20: Progressing) Progress Towards Goals Progress Comments Pt is improving with increased tolerance to walking. Assessment Summary Assessment Pt is very weak in TA. Not able to sustain a contraction on R side for > 3-5 secs and is fatigued by 10 secs even with v. cuing to retighten R side. During TA w/BKFO she loses stability due to weakness of pelvic L rotators. Physical Therapy Plan Frequency and Duration Frequency of Treatment 2x/Week Plan of Care Start Date 07/11/20 Plan of Care End Date 10/09/20 Next Visit Focus/Plan Next Note Type Treatment Note Next Visit Plan Assess response to IFES at a lower intensity. Assess leg length and pelvic positioning. Cont manual lumbar traction. Progress lumbar stabilization and initiate R LE strengthening when appropriate . Initiate LE neural tretches, STM, manual/mechanical lumbar traction. Progress towards improved spine posture (current C-curve with apex on L).
--- NOTE | 2020-07-22 11:54 | PT.OTN ---
Current Diagnoses Intervertebral disc disorders with radiculopathy, lumbar region (07/22/20) Physical Therapy Treatment Note PT-OP-A Visit Information Start: 07/01/20 18:23 Freq: Status: Active Protocol: Document 07/22/20 11:24 MA (Rec: 07/22/20 11:54 MA [email or web address]) Out-Patient Physical Therapy Visit Information Visit Information Visit Type Treatment Note Visit Start Time 10:32 Visit Stop Time 11:25 Total Visit Minutes 53 Visit Number 4 PT-OP-B Current Condition Start: 07/01/20 18:23 Freq: Status: Active Protocol: Document 07/11/20 11:24 LRN (Rec: 07/11/20 12:28 LRN [id number]) Current Condition History of Current Condition Onset Date May 25, 2020. Current Complaints R leg numbness and weakness. History of Current Condition Pt reports numbness and a tired feeling in the R leg. States she went hiking the other day and felt she was incapable of normal walking. States she used to stand on one leg with the other up on a counter to shave her legs, but now when trying to stand on R leg, her leg gives out. States she has fallen several times to the ground due to the RLE giving out. When having pain: Aches in groin anteriorly to ankle of RLE. A week after injury she saw a chiropractor friend and was referred to Dr. Vega who suggested an injection. She deferred and instead went to see her spouse's neurosurgeon (Dr. Francisco Lora) and was given a referral by his team assistant PRAVEEN Edward at [facility]. Prior Treatments and Tests MRI @ [facility] indicates trace degenerative retrolisthesis of L4 on L5 and L3 onL4. Disc Bulge: T12-L1 Moderate diffuse, L1-L2 Minimal, L2-L3 Mild, L3-L4 Large free disc fragment that migrated superior to the disc space, eccentric to the right at L3-L4 impinging on the R L3 nerve root and posteriorly deviates the right L4 nerve root and moderate diffuse disc bulge and moderate to severe canal stenosis. Mild rod foraminal narrowing. L4-L5: Moderate to severe disc height loss, chronic & disc protrusion deviating the left L5 nerve root posteriorly. L5 vertebral body is partially sacralized. Future Testing and Treatments Planned Will follow up with Dr. Mcqueen the first of August. Developmental History Developmental History Pt states she herniated 2 discs, L4-5 or L3-4 when reached over and lifted something heavy with the R hand resulting in numbness in the R lateral thigh to anterior lower leg (lower leg is most painful). Initially pain was at groin and in front of the anterior leg. A week ago was stepping down from a chair and the R leg wouldn't hold her. Treatment Goals Patient/Caregiver Goals Pt goal: to stretch and be careful to develop strength in the R leg and core, and to regain strength and eliminate numbness of the R leg. Prior Functional Status Baseline Function- ADL's Independent Baseline Function- Mobility Independent Baseline Function- Gait Able to slow jog/fast walk, up to the neighbors when in a hurry, can't now. 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 Baseline Function- Recreation/Hobbies Hiked trails a couple miles a couple days a week. Current Functional Impairments (Reported) Functional Limitations- ADL's Not able to lift objects. Not able to slow jog/fast walk to neighbors house. Limited in descending stairs, steps, hiking due to RLE weakness. Functional Limitations- Work/School Gets up every hour to walk 500 + steps. R LE is numb but begins to hurt as the day goes on. 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 PT-OP-C Subjective Start: 07/01/20 18:23 Freq: Status: Active Protocol: Document 07/22/20 11:24 MA (Rec: 07/22/20 11:54 MA [email or web address]) OP-PT Subjective Patient Comments Patient Comments Pt has had some pain along R quads. Feels she is not doing one of her HEP exercises correctly with the ruler. States she drove to/from [place] since last visit and worked on some of her TA exercises in the car. PT-OP-H Neuro Start: 07/01/20 18:23 Freq: Status: Active Protocol: Document 07/11/20 11:24 LRN (Rec: 07/11/20 12:28 LRN [id number]) Sensation Evaluation Gross Sensation Gross Sensation Right LE Impaired Sensation Description Numbness Dermatome Impairments L2,L3,L4 Deep Tendon Reflex & Clonus Assessment Deep Tendon Reflex Right Achilles Deep Tendon Reflex 1+ Diminished Right Patellar Deep Tendon Reflex 2+ Normal PT-OP-J Posture/Palpation/Skin Start: 07/01/20 18:23 Freq: Status: Active Protocol: Document 07/11/20 11:24 LRN (Rec: 07/11/20 12:28 LRN [id number]) Posture Evaluation Comments Posture Comments Mild forward head. Increased lumbar lordosis. R shoulder depressed, R hip elevated. C-curve lower thoracic to sacrum with apex on left. Palpation Assessment Location Lumbar Spine Palpation Location PA glide Spinous process L4-L5 Palpation Findings Tenderness Palpation Details Pt denies tenderness at R Lumbar Transverse processes and facets joints with PA pressure. Low back Palpation Location Lumbar paraspinals Palpation Findings Soft Tissue Tightness,Muscle Guarding Palpation Details Right worse than left. PT-OP-K Range of Motion Start: 07/01/20 18:23 Freq: Status: Active Protocol: Document 07/11/20 11:24 LRN (Rec: 07/11/20 18:48 LRN [id number]) Lumbar Spine Range of Motion Lumbar Spine Active Degrees Testing Position Standing Flexion 35 Extension 14 Rotation Left 45 Rotation Right 20 Lateral Flexion Left 15 Lateral Flexion Right 10 Hip Goniometric Range of Motion Hip Left Passive Testing Position Supine Straight Leg Raise 50 Abduction 35 Internal Rotation 30 External Rotation 70 Comments Active SLR was 50 deg's. Right Passive Testing Position Supine Straight Leg Raise 40 Abduction 30 Internal Rotation 35 External Rotation 55 Comments Active SLR was 30 deg's. PT-OP-L Special Tests Start: 07/01/20 18:23 Freq: Status: Active Protocol: Document 07/11/20 11:24 LRN (Rec: 07/11/20 18:48 LRN [id number]) Special Tests Lumbar Spine Special Tests Vertical Spine Loading Test Results - Comments No change in R LE symptoms Straight Leg Raise Test Results + right Comments Hamstring tightness report bilaterally Manual Traction Test Results - Comments No change in R LE symptoms PT-OP-M Strength Start: 07/01/20 18:23 Freq: Status: Active Protocol: Document 07/11/20 11:24 LRN (Rec: 07/11/20 18:48 LRN [id number]) Trunk Strength Trunk Manual Muscle Testing Testing Position Supine Core Stabilization Pt not able to maintain core stabilization with MMT of hip flexors and hip extensors. Pt was able to maintain core stability with MMT of hip AB/ AD. Hip Strength Hip Manual Muscle Testing Left Adduction 3 Fair Comments Strength is 5/5 except as indicated above. Right Flexion (L2) 2- Poor- Abduction 4 Good Adduction 3 Fair Comments Strength is 5/5 except as indicated above. Knee Strength Knee Manual Muscle Testing Left Comments Strength is 5/5 Right Flexion (S2) 4 Good Comments Strength is 5/5 except as indicated above. PT-OP-Q Treatments Start: 07/01/20 18:23 Freq: Status: Active Protocol: Document 07/22/20 11:24 MA (Rec: 07/22/20 11:54 MA [email or web address]) Therapeutic Exercises Supine Exercises LTR Supine Exercise Name Exhale to bring knees back to neutral Side bilateral Reps/Minutes 6x 10 sec hold for LB stretch Marches Supine Exercise Name exhale with movement to help contract TA Side bilateral Comments pt unable to hold TA contraction on R Pelvic Tucks Supine Exercise Name 3 sec hold, exhale to help with TA activation Side bilateral Comments added to HEP TA Supine Exercise Name TA Reps/Minutes 3' Therapeutic Activity Therapeutic Activity Lifting Name Proper body mechanics for lifting Reps/Minutes 5' Comments wide squating, lifting from legs- pt tends to favor pushing up off her LLE due to quad pain when standing Sidelie <> Supine Name Transfer training Reps/Minutes 3' Manual Therapy Treatment Soft Tissue Mobilization Quads Body Location R Mobilization Type Myofascial Release,Rolling Intensity/Depth Moderate Body Position Supine Manual Traction Hip Details ER of LLE Body Position Supine Reps/Duration 2x60 sec Lumbar Details IR of RLE for lumbar traction Body Position Supine Reps/Duration 60 sec Self-Care/Home Management Treatment Education Patient Education Home Exercise Program,Pain Management Other Education Reviewed HEP exercise with ruler, educated pt on using rolling pin for self manipulation of quads PT-OP-R Modalities Start: 07/01/20 18:23 Freq: Status: Active Protocol: Document 07/18/20 11:32 LRN (Rec: 07/18/20 12:20 LRN [id number]) Electric Stimulation Electric Stimulation Interferential Current (IFC) Body Location [L5], L1 to Glut Max lateral to SIJ's Duration (Minutes) 15 Intensity 8 Target/Sweep Sweep Patient Position Hooklying Combined With Heat/Cold Hot Pack Comments Discomfort on R low back Hot Pack/Cold Pack Treatment Hot Pack Location Low Back Patient Position Hooklying Treatment Duration (minutes) 15 Comments Extra towel layer. PT-OP-T Assessment and Plan Start: 07/01/20 18:23 Freq: Status: Active Protocol: Document 07/22/20 11:24 MA (Rec: 07/22/20 11:54 MA [email or web address]) Physical Therapy Assessment Goals Three Impairment Dec'd core strength (not able to maintain core stability w/ LE resistance) Short Term Goal (STG) Pt will be educated in core stabilization program. STG Duration 08/08/20 (07/18/20: Initiated & progressing) Guitar Maker Goal (LTG) Pt will be able to maintain core stability with resistance to the LE's resulting in decreased pain complaints with hiking/walking. LTG Duration 10/09/20 Two Impairment Decreased R LE strength Short Term Goal (STG) Increase R LE strength with pt able to SLS with confidence for no less than 30 secs. STG Duration 09/10/19 Guitar Maker Goal (LTG) R LE strength of 5/5 with pt able to ambulate stairs with an alternating gait without fear of falling. LTG Duration 10/09/20 One Impairment Pt lacks appropriate self care HEP Snf Goal (LTG) Pt will be independent in a self care HEP of flexibility and strengthening exercises. LTG Duration 10/09/20 (07/18/20: Progressing) Assessment Summary Assessment Reviewed HEP exercise with ruler. LLE is shorter while supine, R hip elevated. Performed manual traction with ER on LLE, RLE manual traction with LE IR for LBP. Pt continues to have difficulty with sustaining TA activation on R side. Worked on using breath to assist in TA activation during supine marches and pelivic tilts. During LTR used exhale to bring knees back to neutral to help activate core and avoid LBP that pt felt at home. Added pelvic tilts to HEP as well as STM with rolling pin to R quads to decrease pain. Pt had 3/10 pain to palapation of R vastus lateralis. Pt would benefit from skilled therapy to decrease pain, improve body mechanics, and strengthening core. Physical Therapy Plan Frequency and Duration Frequency of Treatment 2x/Week Plan of Care Start Date 07/11/20 Plan of Care End Date 10/09/20 Therapeutic Interventions Therapeutic Interventions Home Exercise Program,Joint Mobilizations,Manual Therapy, Neuromuscular Re-education, Patient/Caregiver Education, Self-Care/Home Management,Soft Tissue Mobilization,Taping, Therapeutic Activities, Therapeutic Exercises Modalities Cold Pack/Ice Massage,Electric Stimulation,Hot Packs, Traction- Mechanical, Ultrasound Next Visit Focus/Plan Next Note Type Treatment Note Next Visit Plan Assess response to pelvic tilts with breath control. Assess leg length and pelvic positioning. Cont manual lumbar traction. Progress lumbar stabilization and initiate R LE strengthening when appropriate . Initiate LE neural tretches, STM, manual/mechanical lumbar traction. Progress towards improved spine posture (current C-curve with apex on L).
--- NOTE | 2020-07-25 12:20 | PT.OTN ---
Current Diagnoses Intervertebral disc disorders with radiculopathy, lumbar region (07/25/20) Physical Therapy Treatment Note PT-OP-A Visit Information Start: 07/01/20 18:23 Freq: Status: Active Protocol: Document 07/25/20 11:24 LRN (Rec: 07/25/20 12:19 LRN [id number]) Out-Patient Physical Therapy Visit Information Visit Information Visit Type Treatment Note Visit Start Time 11:24 Visit Stop Time 12:02 Total Visit Minutes 38 Visit Number 5 Evaluation Information Evaluation Date 07/11/20 Precautions Precautions Fall history due to current condition. PT-OP-B Current Condition Start: 07/01/20 18:23 Freq: Status: Active Protocol: Document 07/11/20 11:24 LRN (Rec: 07/11/20 12:28 LRN [id number]) Current Condition History of Current Condition Onset Date May 25, 2020. Current Complaints R leg numbness and weakness. History of Current Condition Pt reports numbness and a tired feeling in the R leg. States she went hiking the other day and felt she was incapable of normal walking. States she used to stand on one leg with the other up on a counter to shave her legs, but now when trying to stand on R leg, her leg gives out. States she has fallen several times to the ground due to the RLE giving out. When having pain: Aches in groin anteriorly to ankle of RLE. A week after injury she saw a chiropractor friend and was referred to Dr. Vega who suggested an injection. She deferred and instead went to see her spouse's neurosurgeon (Dr. Francisco Lora) and was given a referral by his paperhanger assistant PRAVEEN Edward at [facility]. Prior Treatments and Tests MRI @ [facility] indicates trace degenerative retrolisthesis of L4 on L5 and L3 onL4. Disc Bulge: T12-L1 Moderate diffuse, L1-L2 Minimal, L2-L3 Mild, L3-L4 Large free disc fragment that migrated superior to the disc space, eccentric to the right at L3-L4 impinging on the R L3 nerve root and posteriorly deviates the right L4 nerve root and moderate diffuse disc bulge and moderate to severe canal stenosis. Mild rod foraminal narrowing. L4-L5: Moderate to severe disc height loss, chronic & disc protrusion deviating the left L5 nerve root posteriorly. L5 vertebral body is partially sacralized. Future Testing and Treatments Planned Will follow up with Dr. Mcqueen the first of August. Developmental History Developmental History Pt states she herniated 2 discs, L4-5 or L3-4 when reached over and lifted something heavy with the R hand resulting in numbness in the R lateral thigh to anterior lower leg (lower leg is most painful). Initially pain was at groin and in front of the anterior leg. A week ago was stepping down from a chair and the R leg wouldn't hold her. Treatment Goals Patient/Caregiver Goals Pt goal: to stretch and be careful to develop strength in the R leg and core, and to regain strength and eliminate numbness of the R leg. Prior Functional Status Baseline Function- ADL's Independent Baseline Function- Mobility Independent Baseline Function- Gait Able to slow jog/fast walk, up to the neighbors when in a hurry, can't now. 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 Baseline Function- Recreation/Hobbies Hiked trails a couple miles a couple days a week. Current Functional Impairments (Reported) Functional Limitations- ADL's Not able to lift objects. Not able to slow jog/fast walk to neighbors house. Limited in descending stairs, steps, hiking due to RLE weakness. Functional Limitations- Work/School Gets up every hour to walk 500 + steps. R LE is numb but begins to hurt as the day goes on. 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 PT-OP-C Subjective Start: 07/01/20 18:23 Freq: Status: Active Protocol: Document 07/25/20 11:24 LRN (Rec: 07/25/20 12:19 LRN [id number]) OP-PT Subjective Patient Comments Patient Comments States she doesn't have the back pain. Requests training on picking up objects. States she gets R leg pain when trying to get back up after tying to pick something up off the floor. PT-OP-H Neuro Start: 07/01/20 18:23 Freq: Status: Active Protocol: Document 07/11/20 11:24 LRN (Rec: 07/11/20 12:28 LRN [id number]) Sensation Evaluation Gross Sensation Gross Sensation Right LE Impaired Sensation Description Numbness Dermatome Impairments L2,L3,L4 Deep Tendon Reflex & Clonus Assessment Deep Tendon Reflex Right Achilles Deep Tendon Reflex 1+ Diminished Right Patellar Deep Tendon Reflex 2+ Normal PT-OP-J Posture/Palpation/Skin Start: 07/01/20 18:23 Freq: Status: Active Protocol: Document 07/11/20 11:24 LRN (Rec: 07/11/20 12:28 LRN [id number]) Posture Evaluation Comments Posture Comments Mild forward head. Increased lumbar lordosis. R shoulder depressed, R hip elevated. C-curve lower thoracic to sacrum with apex on left. Palpation Assessment Location Lumbar Spine Palpation Location PA glide Spinous process L4-L5 Palpation Findings Tenderness Palpation Details Pt denies tenderness at R Lumbar Transverse processes and facets joints with PA pressure. Low back Palpation Location Lumbar paraspinals Palpation Findings Soft Tissue Tightness,Muscle Guarding Palpation Details Right worse than left. PT-OP-K Range of Motion Start: 07/01/20 18:23 Freq: Status: Active Protocol: Document 07/11/20 11:24 LRN (Rec: 07/11/20 18:48 LRN [id number]) Lumbar Spine Range of Motion Lumbar Spine Active Degrees Testing Position Standing Flexion 35 Extension 14 Rotation Left 45 Rotation Right 20 Lateral Flexion Left 15 Lateral Flexion Right 10 Hip Goniometric Range of Motion Hip Left Passive Testing Position Supine Straight Leg Raise 50 Abduction 35 Internal Rotation 30 External Rotation 70 Comments Active SLR was 50 deg's. Right Passive Testing Position Supine Straight Leg Raise 40 Abduction 30 Internal Rotation 35 External Rotation 55 Comments Active SLR was 30 deg's. PT-OP-L Special Tests Start: 07/01/20 18:23 Freq: Status: Active Protocol: Document 07/11/20 11:24 LRN (Rec: 07/11/20 18:48 LRN [id number]) Special Tests Lumbar Spine Special Tests Vertical Spine Loading Test Results - Comments No change in R LE symptoms Straight Leg Raise Test Results + right Comments Hamstring tightness report bilaterally Manual Traction Test Results - Comments No change in R LE symptoms PT-OP-M Strength Start: 07/01/20 18:23 Freq: Status: Active Protocol: Document 07/11/20 11:24 LRN (Rec: 07/11/20 18:48 LRN [id number]) Trunk Strength Trunk Manual Muscle Testing Testing Position Supine Core Stabilization Pt not able to maintain core stabilization with MMT of hip flexors and hip extensors. Pt was able to maintain core stability with MMT of hip AB/ AD. Hip Strength Hip Manual Muscle Testing Left Adduction 3 Fair Comments Strength is 5/5 except as indicated above. Right Flexion (L2) 2- Poor- Abduction 4 Good Adduction 3 Fair Comments Strength is 5/5 except as indicated above. Knee Strength Knee Manual Muscle Testing Left Comments Strength is 5/5 Right Flexion (S2) 4 Good Comments Strength is 5/5 except as indicated above. PT-OP-Q Treatments Start: 07/01/20 18:23 Freq: Status: Active Protocol: Document 07/25/20 11:24 LRN (Rec: 07/25/20 12:19 LRN [id number]) Therapeutic Exercises Supine Exercises TA w/double heel slides Supine Exercise Name TA w/double heel slides Side bilateral Reps/Minutes 10x 2 Comments 3' TA w/BKFO Supine Exercise Name TA w/BKFO Side bilateral Reps/Minutes 8' Comments Awareness training w/self palp & use of stick across ASIS' Manual Therapy Treatment Joint Mobilizations R SIJ Joint R SIJ Direction Correcting a posteriorly rotated innominate Body Position Supine Reps/Duration 20' Comments Performed once with correction and a 2nd time after single heel slides required a 2nd correction. Self-Care/Home Management Treatment Education Patient Education Home Exercise Program Activities Self-Care/Home Management Activities Issued, reviewed, trained pt in self correction of a posteriorly rotated L innominate. PT-OP-R Modalities Start: 07/01/20 18:23 Freq: Status: Active Protocol: Document 07/18/20 11:32 LRN (Rec: 07/18/20 12:20 LRN [id number]) Electric Stimulation Electric Stimulation Interferential Current (IFC) Body Location [L5], L1 to Glut Max lateral to SIJ's Duration (Minutes) 15 Intensity 8 Target/Sweep Sweep Patient Position Hooklying Combined With Heat/Cold Hot Pack Comments Discomfort on R low back Hot Pack/Cold Pack Treatment Hot Pack Location Low Back Patient Position Hooklying Treatment Duration (minutes) 15 Comments Extra towel layer. PT-OP-T Assessment and Plan Start: 07/01/20 18:23 Freq: Status: Active Protocol: Document 07/25/20 11:24 LRN (Rec: 07/25/20 12:19 LRN [id number]) Physical Therapy Assessment Goals Three Impairment Dec'd core strength (not able to maintain core stability w/ LE resistance) Short Term Goal (STG) Pt will be educated in core stabilization program. STG Duration 08/08/20 (07/18/20: Initiated & progressing) Custodial Goal (LTG) Pt will be able to maintain core stability with resistance to the LE's resulting in decreased pain complaints with hiking/walking. LTG Duration 10/09/20 Two Impairment Decreased R LE strength Short Term Goal (STG) Increase R LE strength with pt able to SLS with confidence for no less than 30 secs. STG Duration 09/10/19 Drill Sharpener Operator Goal (LTG) R LE strength of 5/5 with pt able to ambulate stairs with an alternating gait without fear of falling. LTG Duration 10/09/20 One Impairment Pt lacks appropriate self care HEP Custodial Goal (LTG) Pt will be independent in a self care HEP of flexibility and strengthening exercises. LTG Duration 10/09/20 (07/25/20: Progressing) Progress Towards Goals Progress Comments Progression of self care HEP. Assessment Summary Assessment Assess pt's knowledge of phase 1 SI Jt dysfunction self care program. Pt RLE pain symptoms but correction of LLE is best with correcting R SIJ for a posteriorly rotated innominate. Pt use of single leg with exercises (ex-heel slide) results in pelvic obliquity; therefore pt will need to core strengthen with double leg movements vs single leg movements until she is able to stabilize well enough to control the R pelvic posterior rot/L anterior rotation. Physical Therapy Plan Frequency and Duration Frequency of Treatment 2x/Week Plan of Care Start Date 07/11/20 Plan of Care End Date 10/09/20 Next Visit Focus/Plan Next Note Type Treatment Note Next Visit Plan Assess if pt able to perform pelvic tilts without breath holding. Cont manual lumbar traction if needed. Progress lumbar stabilization with rod leg movement and initiate bilateral LE strengthening. Together LE neural stretches to prevent pelvic rotation dysfunction with singular stretch. Progress towards improved spine posture (current C-curve with apex on L).
--- NOTE | 2020-07-29 12:19 | PT.OTN ---
Current Diagnoses Intervertebral disc disorders with radiculopathy, lumbar region (07/29/20) Physical Therapy Treatment Note PT-OP-A Visit Information Start: 07/01/20 18:23 Freq: Status: Active Protocol: Document 07/29/20 11:22 SP (Rec: 07/29/20 13:15 SP [id number]) Out-Patient Physical Therapy Visit Information Visit Information Visit Type Treatment Note Visit Start Time 11:22 Visit Stop Time 12:19 Total Visit Minutes 57 Visit Number 6 Number of TAX ATTORNEY Visits 1 PT-OP-B Current Condition Start: 07/01/20 18:23 Freq: Status: Active Protocol: Document 07/11/20 11:24 LRN (Rec: 07/11/20 12:28 LRN [id number]) Current Condition History of Current Condition Onset Date May 25, 2020. Current Complaints R leg numbness and weakness. History of Current Condition Pt reports numbness and a tired feeling in the R leg. States she went hiking the other day and felt she was incapable of normal walking. States she used to stand on one leg with the other up on a counter to shave her legs, but now when trying to stand on R leg, her leg gives out. States she has fallen several times to the ground due to the RLE giving out. When having pain: Aches in groin anteriorly to ankle of RLE. A week after injury she saw a chiropractor friend and was referred to Dr. Vega who suggested an injection. She deferred and instead went to see her spouse's neurosurgeon (Dr. Francisco Lora) and was given a referral by his assistant men's lacrosse coach PRAVEEN Edward at [facility]. Prior Treatments and Tests MRI @ [facility] indicates trace degenerative retrolisthesis of L4 on L5 and L3 onL4. Disc Bulge: T12-L1 Moderate diffuse, L1-L2 Minimal, L2-L3 Mild, L3-L4 Large free disc fragment that migrated superior to the disc space, eccentric to the right at L3-L4 impinging on the R L3 nerve root and posteriorly deviates the right L4 nerve root and moderate diffuse disc bulge and moderate to severe canal stenosis. Mild rod foraminal narrowing. L4-L5: Moderate to severe disc height loss, chronic & disc protrusion deviating the left L5 nerve root posteriorly. L5 vertebral body is partially sacralized. Future Testing and Treatments Planned Will follow up with Dr. Mcqueen the first of August. Developmental History Developmental History Pt states she herniated 2 discs, L4-5 or L3-4 when reached over and lifted something heavy with the R hand resulting in numbness in the R lateral thigh to anterior lower leg (lower leg is most painful). Initially pain was at groin and in front of the anterior leg. A week ago was stepping down from a chair and the R leg wouldn't hold her. Treatment Goals Patient/Caregiver Goals Pt goal: to stretch and be careful to develop strength in the R leg and core, and to regain strength and eliminate numbness of the R leg. Prior Functional Status Baseline Function- ADL's Independent Baseline Function- Mobility Independent Baseline Function- Gait Able to slow jog/fast walk, up to the neighbors when in a hurry, can't now. 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 Baseline Function- Recreation/Hobbies Hiked trails a couple miles a couple days a week. Current Functional Impairments (Reported) Functional Limitations- ADL's Not able to lift objects. Not able to slow jog/fast walk to neighbors house. Limited in descending stairs, steps, hiking due to RLE weakness. Functional Limitations- Work/School Gets up every hour to walk 500 + steps. R LE is numb but begins to hurt as the day goes on. 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 PT-OP-C Subjective Start: 07/01/20 18:23 Freq: Status: Active Protocol: Document 07/29/20 11:22 SP (Rec: 07/29/20 13:15 SP [id number]) OP-PT Subjective Patient Comments Patient Comments Pt reported doing so much better and no knife pain in R LE but still numbness in R medial calf with decreased strength. Wants to be able to get on/off floor and eventually get back to skiing. Feels best when walks 10,000 steps a day 3x/wk lately. Still gets tired back pain but better. PT-OP-H Neuro Start: 07/01/20 18:23 Freq: Status: Active Protocol: Document 07/11/20 11:24 LRN (Rec: 07/11/20 12:28 LRN [id number]) Sensation Evaluation Gross Sensation Gross Sensation Right LE Impaired Sensation Description Numbness Dermatome Impairments L2,L3,L4 Deep Tendon Reflex & Clonus Assessment Deep Tendon Reflex Right Achilles Deep Tendon Reflex 1+ Diminished Right Patellar Deep Tendon Reflex 2+ Normal PT-OP-J Posture/Palpation/Skin Start: 07/01/20 18:23 Freq: Status: Active Protocol: Document 07/11/20 11:24 LRN (Rec: 07/11/20 12:28 LRN [id number]) Posture Evaluation Comments Posture Comments Mild forward head. Increased lumbar lordosis. R shoulder depressed, R hip elevated. C-curve lower thoracic to sacrum with apex on left. Palpation Assessment Location Lumbar Spine Palpation Location PA glide Spinous process L4-L5 Palpation Findings Tenderness Palpation Details Pt denies tenderness at R Lumbar Transverse processes and facets joints with PA pressure. Low back Palpation Location Lumbar paraspinals Palpation Findings Soft Tissue Tightness,Muscle Guarding Palpation Details Right worse than left. PT-OP-K Range of Motion Start: 07/01/20 18:23 Freq: Status: Active Protocol: Document 07/11/20 11:24 LRN (Rec: 07/11/20 18:48 LRN [id number]) Lumbar Spine Range of Motion Lumbar Spine Active Degrees Testing Position Standing Flexion 35 Extension 14 Rotation Left 45 Rotation Right 20 Lateral Flexion Left 15 Lateral Flexion Right 10 Hip Goniometric Range of Motion Hip Left Passive Testing Position Supine Straight Leg Raise 50 Abduction 35 Internal Rotation 30 External Rotation 70 Comments Active SLR was 50 deg's. Right Passive Testing Position Supine Straight Leg Raise 40 Abduction 30 Internal Rotation 35 External Rotation 55 Comments Active SLR was 30 deg's. PT-OP-L Special Tests Start: 07/01/20 18:23 Freq: Status: Active Protocol: Document 07/11/20 11:24 LRN (Rec: 07/11/20 18:48 LRN [id number]) Special Tests Lumbar Spine Special Tests Vertical Spine Loading Test Results - Comments No change in R LE symptoms Straight Leg Raise Test Results + right Comments Hamstring tightness report bilaterally Manual Traction Test Results - Comments No change in R LE symptoms PT-OP-M Strength Start: 07/01/20 18:23 Freq: Status: Active Protocol: Document 07/11/20 11:24 LRN (Rec: 07/11/20 18:48 LRN [id number]) Trunk Strength Trunk Manual Muscle Testing Testing Position Supine Core Stabilization Pt not able to maintain core stabilization with MMT of hip flexors and hip extensors. Pt was able to maintain core stability with MMT of hip AB/ AD. Hip Strength Hip Manual Muscle Testing Left Adduction 3 Fair Comments Strength is 5/5 except as indicated above. Right Flexion (L2) 2- Poor- Abduction 4 Good Adduction 3 Fair Comments Strength is 5/5 except as indicated above. Knee Strength Knee Manual Muscle Testing Left Comments Strength is 5/5 Right Flexion (S2) 4 Good Comments Strength is 5/5 except as indicated above. PT-OP-Q Treatments Start: 07/01/20 18:23 Freq: Status: Active Protocol: Document 07/29/20 11:22 SP (Rec: 07/29/20 13:15 SP [id number]) Therapeutic Exercises Supine Exercises TA breath bridge Reps/Minutes 5 sec hold x10 Comments exhale on lift with good slow core facilitaion TA w/double heel slides Supine Exercise Name TA w/double heel slides Side bilateral Reps/Minutes 10x 2 Comments 3' Pelvic Tucks Supine Exercise Name 3 sec hold, exhale to help with TA activation Side bilateral Comments review to HEP TA w/BKFO Supine Exercise Name TA w/BKFO Side bilateral Reps/Minutes 5' Comments Awareness training w/self palp & use of stick across ASIS' Standing Exercises mini lunge at table w/ chair Side bilateral Equipment Used chair behind forward LE target , table UE WB Reps/Minutes x3 Comments cued hip hinge front glut facilitation during hip/knee extension sit to stands Standing Exercise Name hands on lap (knees behind toes) glut facilitation Resistance TB #1 loop Equipment Used chair posteriorly, contact table Reps/Minutes 5 ' Comments extra time spent hip hinge, provided chair posteriorly helped PT-OP-R Modalities Start: 07/01/20 18:23 Freq: Status: Active Protocol: Document 07/18/20 11:32 LRN (Rec: 07/18/20 12:20 LRN [id number]) Electric Stimulation Electric Stimulation Interferential Current (IFC) Body Location [L5], L1 to Glut Max lateral to SIJ's Duration (Minutes) 15 Intensity 8 Target/Sweep Sweep Patient Position Hooklying Combined With Heat/Cold Hot Pack Comments Discomfort on R low back Hot Pack/Cold Pack Treatment Hot Pack Location Low Back Patient Position Hooklying Treatment Duration (minutes) 15 Comments Extra towel layer. PT-OP-T Assessment and Plan Start: 07/01/20 18:23 Freq: Status: Active Protocol: Document 07/29/20 11:22 SP (Rec: 07/29/20 13:15 SP [id number]) Physical Therapy Assessment Goals Three Impairment Dec'd core strength (not able to maintain core stability w/ LE resistance) Short Term Goal (STG) Pt will be educated in core stabilization program. STG Duration 08/08/20 (07/18/20: Initiated & progressing) Alf Goal (LTG) Pt will be able to maintain core stability with resistance to the LE's resulting in decreased pain complaints with hiking/walking. LTG Duration 10/09/20 Two Impairment Decreased R LE strength Short Term Goal (STG) Increase R LE strength with pt able to SLS with confidence for no less than 30 secs. STG Duration 09/10/19 Alf Goal (LTG) R LE strength of 5/5 with pt able to ambulate stairs with an alternating gait without fear of falling. LTG Duration 10/09/20 One Impairment Pt lacks appropriate self care HEP Alf Goal (LTG) Pt will be independent in a self care HEP of flexibility and strengthening exercises. LTG Duration 10/09/20 (07/25/20: Progressing) Assessment Summary Assessment Pt made tremendous gains with core and glut facilitations this tx with HEP, improved self corrections, provided sit to stands to demonstrate double leg glut facilitation to stand with difficulty hip hinge but improved as resp progressed with knees behind toes and decrease anterior recruitment. Initiated mini lunge to work on getting on/ off floor like wants with challenge with LLE RLE weakness but improved with chair as target to move to and equal wt distribution. Next add BKFO with TB loop Physical Therapy Plan Frequency and Duration Frequency of Treatment 2x/Week Plan of Care Start Date 07/11/20 Plan of Care End Date 10/09/20 Therapeutic Interventions Therapeutic Interventions Home Exercise Program,Joint Mobilizations,Manual Therapy, Neuromuscular Re-education, Patient/Caregiver Education, Self-Care/Home Management,Soft Tissue Mobilization,Taping, Therapeutic Activities, Therapeutic Exercises Modalities Cold Pack/Ice Massage,Electric Stimulation,Hot Packs, Traction- Mechanical, Ultrasound Next Visit Focus/Plan Next Note Type Treatment Note Next Visit Plan Assess HEP review, initiated STS and mini lunge after reassess if pt able to perform pelvic tilts. Cont manual lumbar traction if needed. Progress lumbar stabilization with rod leg movement and initiate bilateral LE strengthening. Together LE neural stretches to prevent pelvic rotation dysfunction with singular stretch. Progress towards improved spine posture (current C-curve with apex on L).
--- NOTE | 2020-08-01 09:00 | PT.OTN ---
Current Diagnoses Intervertebral disc disorders with radiculopathy, lumbar region (08/01/20) Physical Therapy Treatment Note PT-OP-A Visit Information Start: 07/01/20 18:23 Freq: Status: Active Protocol: Document 08/01/20 09:00 DLM (Rec: 08/01/20 11:12 DLM [id number]) Out-Patient Physical Therapy Visit Information Visit Information Visit Type Treatment Note Visit Start Time 09:00 Visit Stop Time 10:00 Total Visit Minutes 60 Visit Number 7 Number of PRUNER Visits 0 Evaluation Information Evaluation Date 07/11/20 Precautions Precautions Fall history due to current condition. PT-OP-B Current Condition Start: 07/01/20 18:23 Freq: Status: Active Protocol: Document 07/11/20 11:24 LRN (Rec: 07/11/20 12:28 LRN [id number]) Current Condition History of Current Condition Onset Date May 25, 2020. Current Complaints R leg numbness and weakness. History of Current Condition Pt reports numbness and a tired feeling in the R leg. States she went hiking the other day and felt she was incapable of normal walking. States she used to stand on one leg with the other up on a counter to shave her legs, but now when trying to stand on R leg, her leg gives out. States she has fallen several times to the ground due to the RLE giving out. When having pain: Aches in groin anteriorly to ankle of RLE. A week after injury she saw a chiropractor friend and was referred to Dr. Vega who suggested an injection. She deferred and instead went to see her spouse's neurosurgeon (Dr. Francisco Lora) and was given a referral by his clinical assistant professor PRAVEEN Edward at [facility]. Prior Treatments and Tests MRI @ [facility] indicates trace degenerative retrolisthesis of L4 on L5 and L3 onL4. Disc Bulge: T12-L1 Moderate diffuse, L1-L2 Minimal, L2-L3 Mild, L3-L4 Large free disc fragment that migrated superior to the disc space, eccentric to the right at L3-L4 impinging on the R L3 nerve root and posteriorly deviates the right L4 nerve root and moderate diffuse disc bulge and moderate to severe canal stenosis. Mild rod foraminal narrowing. L4-L5: Moderate to severe disc height loss, chronic & disc protrusion deviating the left L5 nerve root posteriorly. L5 vertebral body is partially sacralized. Future Testing and Treatments Planned Will follow up with Dr. Mcqueen the first of August. Developmental History Developmental History Pt states she herniated 2 discs, L4-5 or L3-4 when reached over and lifted something heavy with the R hand resulting in numbness in the R lateral thigh to anterior lower leg (lower leg is most painful). Initially pain was at groin and in front of the anterior leg. A week ago was stepping down from a chair and the R leg wouldn't hold her. Treatment Goals Patient/Caregiver Goals Pt goal: to stretch and be careful to develop strength in the R leg and core, and to regain strength and eliminate numbness of the R leg. Prior Functional Status Baseline Function- ADL's Independent Baseline Function- Mobility Independent Baseline Function- Gait Able to slow jog/fast walk, up to the neighbors when in a hurry, can't now. 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 Baseline Function- Recreation/Hobbies Hiked trails a couple miles a couple days a week. Current Functional Impairments (Reported) Functional Limitations- ADL's Not able to lift objects. Not able to slow jog/fast walk to neighbors house. Limited in descending stairs, steps, hiking due to RLE weakness. Functional Limitations- Work/School Gets up every hour to walk 500 + steps. R LE is numb but begins to hurt as the day goes on. 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 PT-OP-C Subjective Start: 07/01/20 18:23 Freq: Status: Active Protocol: Document 08/01/20 09:00 DL (Rec: 08/01/20 11:12 DL [id number]) OP-PT Subjective Patient Comments Patient Comments She is more sore today. She did a lot of standing and cooking yesterday. She applied a medication patch to her back to manage the pain this morning. She reports the Estim in therapy helps decrease her pain. OP-PT Pain Assessment Location R lower extremity Pain Location Details right low back and anterior thigh Intensity 5 Scale Used Numeric (0 - 10) Description Aching Other Pain Alleviating Factors reproduced pain with trunk flexion and right lateral sidebend Home Pain Medication Use Pain Medications Used Yes: medication patch PT-OP-H Neuro Start: 07/01/20 18:23 Freq: Status: Active Protocol: Document 07/11/20 11:24 LRN (Rec: 07/11/20 12:28 LRN [id number]) Sensation Evaluation Gross Sensation Gross Sensation Right LE Impaired Sensation Description Numbness Dermatome Impairments L2,L3,L4 Deep Tendon Reflex & Clonus Assessment Deep Tendon Reflex Right Achilles Deep Tendon Reflex 1+ Diminished Right Patellar Deep Tendon Reflex 2+ Normal PT-OP-J Posture/Palpation/Skin Start: 07/01/20 18:23 Freq: Status: Active Protocol: Document 07/11/20 11:24 LRN (Rec: 07/11/20 12:28 LRN [id number]) Posture Evaluation Comments Posture Comments Mild forward head. Increased lumbar lordosis. R shoulder depressed, R hip elevated. C-curve lower thoracic to sacrum with apex on left. Palpation Assessment Location Lumbar Spine Palpation Location PA glide Spinous process L4-L5 Palpation Findings Tenderness Palpation Details Pt denies tenderness at R Lumbar Transverse processes and facets joints with PA pressure. Low back Palpation Location Lumbar paraspinals Palpation Findings Soft Tissue Tightness,Muscle Guarding Palpation Details Right worse than left. PT-OP-K Range of Motion Start: 07/01/20 18:23 Freq: Status: Active Protocol: Document 07/11/20 11:24 LRN (Rec: 07/11/20 18:48 LRN [id number]) Lumbar Spine Range of Motion Lumbar Spine Active Degrees Testing Position Standing Flexion 35 Extension 14 Rotation Left 45 Rotation Right 20 Lateral Flexion Left 15 Lateral Flexion Right 10 Hip Goniometric Range of Motion Hip Left Passive Testing Position Supine Straight Leg Raise 50 Abduction 35 Internal Rotation 30 External Rotation 70 Comments Active SLR was 50 deg's. Right Passive Testing Position Supine Straight Leg Raise 40 Abduction 30 Internal Rotation 35 External Rotation 55 Comments Active SLR was 30 deg's. PT-OP-L Special Tests Start: 07/01/20 18:23 Freq: Status: Active Protocol: Document 07/11/20 11:24 LRN (Rec: 07/11/20 18:48 LRN [id number]) Special Tests Lumbar Spine Special Tests Vertical Spine Loading Test Results - Comments No change in R LE symptoms Straight Leg Raise Test Results + right Comments Hamstring tightness report bilaterally Manual Traction Test Results - Comments No change in R LE symptoms PT-OP-M Strength Start: 07/01/20 18:23 Freq: Status: Active Protocol: Document 07/11/20 11:24 LRN (Rec: 07/11/20 18:48 LRN [id number]) Trunk Strength Trunk Manual Muscle Testing Testing Position Supine Core Stabilization Pt not able to maintain core stabilization with MMT of hip flexors and hip extensors. Pt was able to maintain core stability with MMT of hip AB/ AD. Hip Strength Hip Manual Muscle Testing Left Adduction 3 Fair Comments Strength is 5/5 except as indicated above. Right Flexion (L2) 2- Poor- Abduction 4 Good Adduction 3 Fair Comments Strength is 5/5 except as indicated above. Knee Strength Knee Manual Muscle Testing Left Comments Strength is 5/5 Right Flexion (S2) 4 Good Comments Strength is 5/5 except as indicated above. PT-OP-Q Treatments Start: 07/01/20 18:23 Freq: Status: Active Protocol: Document 08/01/20 09:00 DLM (Rec: 08/01/20 11:12 DLM [id number]) Therapeutic Exercises Supine Exercises Hip Adduction Supine Exercise Name Isometric hip Adduction Side bilateral Equipment Used pillow between knees Reps/Minutes 5 sec hold x 10 reps Comments Hooklying Hamstring stretch Supine Exercise Name Foot to ceiling active stretch Side bilateral Reps/Minutes 4 reps each side Comments relaxed UE's holding at knee Single Knee to Chest Supine Exercise Name SKTC stretch Side bilateral Reps/Minutes 5 reps each side TA breath bridge Supine Exercise Name TVA isometric only Reps/Minutes 5 sec hold x10 LTR Supine Exercise Name LTR with low back flat on bed Side bilateral Reps/Minutes 5 reps each side Comments focus on moving LE's only TA w/BKFO Supine Exercise Name TA w/BKFO Side bilateral Reps/Minutes 5' Comments Awareness training w/self palp & use of stick across ASIS' Other Exercises Prayer Stretch Other Exercise Name Quadruped prayer stretch Resistance gradual increase to manage pain Reps/Minutes 8 reps Comments pain decreased with reps Self-Care/Home Management Treatment Education Other Education education for home management of pain PT-OP-R Modalities Start: 07/01/20 18:23 Freq: Status: Active Protocol: Document 08/01/20 09:00 DLM (Rec: 12/21/20 11:12 DLM [id number]) Electric Stimulation Electric Stimulation Interferential Current (IFC) Body Location lumbosacral Duration (Minutes) 15 Intensity 8 Target/Sweep Sweep Patient Position Hooklying Combined With Heat/Cold Hot Pack Comments Decreased pain reported with treatment, medication patch removed before IFC PT-OP-T Assessment and Plan Start: 07/01/20 18:23 Freq: Status: Active Protocol: Document 08/01/20 09:00 DLM (Rec: 08/01/20 11:12 DLM [id number]) Physical Therapy Assessment Goals Three Impairment Dec'd core strength (not able to maintain core stability w/ LE resistance) Short Term Goal (STG) Pt will be educated in core stabilization program. STG Duration 08/08/20 (07/18/20: Initiated & progressing) Humanities Coordinator Goal (LTG) Pt will be able to maintain core stability with resistance to the LE's resulting in decreased pain complaints with hiking/walking. LTG Duration 10/09/20 Two Impairment Decreased R LE strength Short Term Goal (STG) Increase R LE strength with pt able to SLS with confidence for no less than 30 secs. STG Duration 09/10/19 Humanities Coordinator Goal (LTG) R LE strength of 5/5 with pt able to ambulate stairs with an alternating gait without fear of falling. LTG Duration 10/09/20 One Impairment Pt lacks appropriate self care HEP Humanities Coordinator Goal (LTG) Pt will be independent in a self care HEP of flexibility and strengthening exercises. LTG Duration 10/09/20 (07/25/20: Progressing) Progress Towards Goals Progress Towards Goals Slow Progress - Other Progress Comments increase in her pain today which appears to be related to home activities yesturday Assessment Summary Assessment Modified exercises today to manage her increase pain. She tolerated stretching and gentle core stab well this visit. She reports IFC helps decrease her pain. Suspect flexion activies at home increased her pain. Physical Therapy Plan Frequency and Duration Frequency of Treatment 2x/Week Duration of Treatment 3 months Plan of Care Start Date 07/11/20 Plan of Care End Date 10/09/20 Therapeutic Interventions Therapeutic Interventions Home Exercise Program,Joint Mobilizations,Manual Therapy, Neuromuscular Re-education, Patient/Caregiver Education, Self-Care/Home Management,Soft Tissue Mobilization,Taping, Therapeutic Activities, Therapeutic Exercises Modalities Cold Pack/Ice Massage,Electric Stimulation,Hot Packs, Traction- Mechanical, Ultrasound Next Visit Focus/Plan Next Note Type Progress Note Next Visit Plan slowly resume more challenging core stab ex as her pain improves
--- NOTE | 2020-08-03 15:00 | PT.OTN ---
Current Diagnoses Intervertebral disc disorders with radiculopathy, lumbar region (08/03/20) Physical Therapy Treatment Note PT-OP-A Visit Information Start: 07/01/20 18:23 Freq: Status: Active Protocol: Document 08/03/20 13:58 MA (Rec: 08/03/20 14:31 MA [id number]) Out-Patient Physical Therapy Visit Information Visit Information Visit Type Treatment Note Visit Start Time 13:50 Visit Stop Time 14:30 Total Visit Minutes 40 Visit Number 8 Number of QUALITY CONTROL INSPECTOR HEADING Visits 1 PT-OP-B Current Condition Start: 07/01/20 18:23 Freq: Status: Active Protocol: Document 07/11/20 11:24 LRN (Rec: 07/11/20 12:28 LRN [id number]) Current Condition History of Current Condition Onset Date May 25, 2020. Current Complaints R leg numbness and weakness. History of Current Condition Pt reports numbness and a tired feeling in the R leg. States she went hiking the other day and felt she was incapable of normal walking. States she used to stand on one leg with the other up on a counter to shave her legs, but now when trying to stand on R leg, her leg gives out. States she has fallen several times to the ground due to the RLE giving out. When having pain: Aches in groin anteriorly to ankle of RLE. A week after injury she saw a chiropractor friend and was referred to Dr. Vega who suggested an injection. She deferred and instead went to see her spouse's neurosurgeon (Dr. Francisco Lora) and was given a referral by his pharmacy sales assistant PRAVEEN Edward at [facility]. Prior Treatments and Tests MRI @ [facility] indicates trace degenerative retrolisthesis of L4 on L5 and L3 onL4. Disc Bulge: T12-L1 Moderate diffuse, L1-L2 Minimal, L2-L3 Mild, L3-L4 Large free disc fragment that migrated superior to the disc space, eccentric to the right at L3-L4 impinging on the R L3 nerve root and posteriorly deviates the right L4 nerve root and moderate diffuse disc bulge and moderate to severe canal stenosis. Mild bobo foraminal narrowing. L4-L5: Moderate to severe disc height loss, chronic & disc protrusion deviating the left L5 nerve root posteriorly. L5 vertebral body is partially sacralized. Future Testing and Treatments Planned Will follow up with Dr. Mcqueen the first august. Developmental History Developmental History Pt states she herniated 2 discs, L4-5 or L3-4 when reached over and lifted something heavy with the R hand resulting in numbness in the R lateral thigh to anterior lower leg (lower leg is most painful). Initially pain was at groin and in front of the anterior leg. A week ago was stepping down from a chair and the R leg wouldn't hold her. Treatment Goals Patient/Caregiver Goals Pt goal: to stretch and be careful to develop strength in the R leg and core, and to regain strength and eliminate numbness of the R leg. Prior Functional Status Baseline Function- ADL's Independent Baseline Function- Mobility Independent Baseline Function- Gait Able to slow jog/fast walk, up to the neighbors when in a hurry, can't now. 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 Baseline Function- Recreation/Hobbies Hiked trails a couple miles a couple days a week. Current Functional Impairments (Reported) Functional Limitations- ADL's Not able to lift objects. Not able to slow jog/fast walk to neighbors house. Limited in descending stairs, steps, hiking due to RLE weakness. Functional Limitations- Work/School Gets up every hour to walk 500 + steps. R LE is numb but begins to hurt as the day goes on. 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 PT-OP-C Subjective Start: 07/01/20 18:23 Freq: Status: Active Protocol: Document 08/03/20 13:58 MA (Rec: 08/03/20 14:31 MA [id number]) OP-PT Subjective Patient Comments Patient Comments Pt reports she drove to [place] yesterday and forgot to do her exercises. PT-OP-H Neuro Start: 07/01/20 18:23 Freq: Status: Active Protocol: Document 07/11/20 11:24 LRN (Rec: 07/11/20 12:28 LRN [id number]) Sensation Evaluation Gross Sensation Gross Sensation Right LE Impaired Sensation Description Numbness Dermatome Impairments L2,L3,L4 Deep Tendon Reflex & Clonus Assessment Deep Tendon Reflex Right Achilles Deep Tendon Reflex 1+ Diminished Right Patellar Deep Tendon Reflex 2+ Normal PT-OP-J Posture/Palpation/Skin Start: 07/01/20 18:23 Freq: Status: Active Protocol: Document 07/11/20 11:24 LRN (Rec: 07/11/20 12:28 LRN [id number]) Posture Evaluation Comments Posture Comments Mild forward head. Increased lumbar lordosis. R shoulder depressed, R hip elevated. C-curve lower thoracic to sacrum with apex on left. Palpation Assessment Location Lumbar Spine Palpation Location PA glide Spinous process L4-L5 Palpation Findings Tenderness Palpation Details Pt denies tenderness at R Lumbar Transverse processes and facets joints with PA pressure. Low back Palpation Location Lumbar paraspinals Palpation Findings Soft Tissue Tightness,Muscle Guarding Palpation Details Right worse than left. PT-OP-K Range of Motion Start: 07/01/20 18:23 Freq: Status: Active Protocol: Document 07/11/20 11:24 LRN (Rec: 07/11/20 18:48 LRN [id number]) Lumbar Spine Range of Motion Lumbar Spine Active Degrees Testing Position Standing Flexion 35 Extension 14 Rotation Left 45 Rotation Right 20 Lateral Flexion Left 15 Lateral Flexion Right 10 Hip Goniometric Range of Motion Hip Left Passive Testing Position Supine Straight Leg Raise 50 Abduction 35 Internal Rotation 30 External Rotation 70 Comments Active SLR was 50 deg's. Right Passive Testing Position Supine Straight Leg Raise 40 Abduction 30 Internal Rotation 35 External Rotation 55 Comments Active SLR was 30 deg's. PT-OP-L Special Tests Start: 07/01/20 18:23 Freq: Status: Active Protocol: Document 07/11/20 11:24 LRN (Rec: 07/11/20 18:48 LRN [id number]) Special Tests Lumbar Spine Special Tests Vertical Spine Loading Test Results - Comments No change in R LE symptoms Straight Leg Raise Test Results + right Comments Hamstring tightness report bilaterally Manual Traction Test Results - Comments No change in R LE symptoms PT-OP-M Strength Start: 07/01/20 18:23 Freq: Status: Active Protocol: Document 07/11/20 11:24 LRN (Rec: 07/11/20 18:48 LRN [id number]) Trunk Strength Trunk Manual Muscle Testing Testing Position Supine Core Stabilization Pt not able to maintain core stabilization with MMT of hip flexors and hip extensors. Pt was able to maintain core stability with MMT of hip AB/ AD. Hip Strength Hip Manual Muscle Testing Left Adduction 3 Fair Comments Strength is 5/5 except as indicated above. Right Flexion (L2) 2- Poor- Abduction 4 Good Adduction 3 Fair Comments Strength is 5/5 except as indicated above. Knee Strength Knee Manual Muscle Testing Left Comments Strength is 5/5 Right Flexion (S2) 4 Good Comments Strength is 5/5 except as indicated above. PT-OP-Q Treatments Start: 07/01/20 18:23 Freq: Status: Active Protocol: Document 08/03/20 13:58 MA (Rec: 08/03/20 14:31 MA [id number]) Therapeutic Exercises Supine Exercises Single Knee to Chest Supine Exercise Name SKTC stretch Side bilateral Reps/Minutes 5 reps each side TA breath bridge Supine Exercise Name TVA isometric only Reps/Minutes 5 sec hold x10 TA w/double heel slides Supine Exercise Name TA w/double heel slides Side bilateral Reps/Minutes 10x 2 Comments 3' LTR Supine Exercise Name LTR with low back flat on bed Side bilateral Reps/Minutes 5 reps each side Comments focus on moving LE's only Pelvic Tucks Supine Exercise Name 3 sec hold, exhale to help with TA activation Side bilateral Comments review to HEP TA w/BKFO Supine Exercise Name TA w/BKFO Side bilateral Reps/Minutes 5' Comments Awareness training w/self palp & use of stick across ASIS' Manual Therapy Treatment Soft Tissue Mobilization HS Body Location Bobo HS Mobilization Type Rolling,Other Intensity/Depth Moderate Body Position Supine Comments Pt's calf resting on therapist 's shd. HS splaying and rolling R>L PT-OP-R Modalities Start: 07/01/20 18:23 Freq: Status: Active Protocol: Document 08/01/20 09:00 DLM (Rec: 08/01/20 11:12 DLM [id number]) Electric Stimulation Electric Stimulation Interferential Current (IFC) Body Location lumbosacral Duration (Minutes) 15 Intensity 8 Target/Sweep Sweep Patient Position Hooklying Combined With Heat/Cold Hot Pack Comments Decreased pain reported with treatment, medication patch removed before IFC PT-OP-T Assessment and Plan Start: 07/01/20 18:23 Freq: Status: Active Protocol: Document 08/03/20 13:58 MA (Rec: 08/03/20 14:31 MA [id number]) Physical Therapy Assessment Goals Three Impairment Dec'd core strength (not able to maintain core stability w/ LE resistance) Short Term Goal (STG) Pt will be educated in core stabilization program. STG Duration 08/08/20 (07/18/20: Initiated & progressing) Senior Living Goal (LTG) Pt will be able to maintain core stability with resistance to the LE's resulting in decreased pain complaints with hiking/walking. LTG Duration 10/09/20 Two Impairment Decreased R LE strength Short Term Goal (STG) Increase R LE strength with pt able to SLS with confidence for no less than 30 secs. STG Duration 09/10/19 Senior Living Goal (LTG) R LE strength of 5/5 with pt able to ambulate stairs with an alternating gait without fear of falling. LTG Duration 10/09/20 One Impairment Pt lacks appropriate self care HEP Analyst Microbiology Lab Goal (LTG) Pt will be independent in a self care HEP of flexibility and strengthening exercises. LTG Duration 10/09/20 (07/25/20: Progressing) Assessment Summary Assessment Pt had no increase in pain during exercises today. She is getting better at maintaining TA activation on R side when cued. After STM of HS, pt gained ~10 degrees on R side. Physical Therapy Plan Frequency and Duration Frequency of Treatment 2x/Week Duration of Treatment 3 months Plan of Care Start Date 07/11/20 Plan of Care End Date 10/09/20 Next Visit Focus/Plan Next Note Type Treatment Note Next Visit Plan Continue STM of quads & HS. Work on sit<>stands and proper squat form for retrieving objects from floor. Continue progressing core exercises and ending with IFC.
--- NOTE | 2020-08-11 12:30 | PT.OTN ---
Current Diagnoses Intervertebral disc disorders with radiculopathy, lumbar region (08/11/20) Physical Therapy Treatment Note PT-OP-A Visit Information Start: 07/01/20 18:23 Freq: Status: Active Protocol: Document 08/11/20 09:49 LRN (Rec: 08/11/20 10:33 LRN [id number]) Out-Patient Physical Therapy Visit Information Visit Information Visit Type Treatment Note Visit Start Time 09:49 Visit Stop Time 10:32 Total Visit Minutes 43 Visit Number 9 Evaluation Information Evaluation Date 07/11/20 Precautions Precautions Fall history due to current condition. PT-OP-B Current Condition Start: 07/01/20 18:23 Freq: Status: Active Protocol: Document 07/11/20 11:24 LRN (Rec: 07/11/20 12:28 LRN [id number]) Current Condition History of Current Condition Onset Date May 25, 2020. Current Complaints R leg numbness and weakness. History of Current Condition Pt reports numbness and a tired feeling in the R leg. States she went hiking the other day and felt she was incapable of normal walking. States she used to stand on one leg with the other up on a counter to shave her legs, but now when trying to stand on R leg, her leg gives out. States she has fallen several times to the ground due to the RLE giving out. When having pain: Aches in groin anteriorly to ankle of RLE. A week after injury she saw a chiropractor friend and was referred to Dr. Vega who suggested an injection. She deferred and instead went to see her spouse's neurosurgeon (Dr. Francisco Lora) and was given a referral by his assistant speech language pathologist PRAVEEN Edward at [facility]. Prior Treatments and Tests MRI @ [facility] indicates trace degenerative retrolisthesis of L4 on L5 and L3 onL4. Disc Bulge: T12-L1 Moderate diffuse, L1-L2 Minimal, L2-L3 Mild, L3-L4 Large free disc fragment that migrated superior to the disc space, eccentric to the right at L3-L4 impinging on the R L3 nerve root and posteriorly deviates the right L4 nerve root and moderate diffuse disc bulge and moderate to severe canal stenosis. Mild rod foraminal narrowing. L4-L5: Moderate to severe disc height loss, chronic & disc protrusion deviating the left L5 nerve root posteriorly. L5 vertebral body is partially sacralized. Future Testing and Treatments Planned Will follow up with Dr. Mcqueen the first of August. Developmental History Developmental History Pt states she herniated 2 discs, L4-5 or L3-4 when reached over and lifted something heavy with the R hand resulting in numbness in the R lateral thigh to anterior lower leg (lower leg is most painful). Initially pain was at groin and in front of the anterior leg. A week ago was stepping down from a chair and the R leg wouldn't hold her. Treatment Goals Patient/Caregiver Goals Pt goal: to stretch and be careful to develop strength in the R leg and core, and to regain strength and eliminate numbness of the R leg. Prior Functional Status Baseline Function- ADL's Independent Baseline Function- Mobility Independent Baseline Function- Gait Able to slow jog/fast walk, up to the neighbors when in a hurry, can't now. 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 Baseline Function- Recreation/Hobbies Hiked trails a couple miles a couple days a week. Current Functional Impairments (Reported) Functional Limitations- ADL's Not able to lift objects. Not able to slow jog/fast walk to neighbors house. Limited in descending stairs, steps, hiking due to RLE weakness. Functional Limitations- Work/School Gets up every hour to walk 500 + steps. R LE is numb but begins to hurt as the day goes on. 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 PT-OP-C Subjective Start: 07/01/20 18:23 Freq: Status: Active Protocol: Document 08/11/20 09:49 LRN (Rec: 08/11/20 10:33 LRN [id number]) OP-PT Subjective Patient Comments Patient Comments States she feels she has stronger control of abdomen. More conscious of posture and is getting out to walk at lunch. Doesn't hurt as much and as frequently. Low back pain is 0-3/10 with occasion of 3/10 pain is far less at a couple times a day or after strenuous lifting, but not debilitating. Distracting pain only once in last week after lifting (laundry or getting things out of lower cupboards). Does have discomfort daily. Thought she would be skiing now. Would like to do an extended hike next summer (40 mile hike in [place]). Currently no pain. R LE strength she feels has been great. PT-OP-H Neuro Start: 07/01/20 18:23 Freq: Status: Active Protocol: Document 07/11/20 11:24 LRN (Rec: 07/11/20 12:28 LRN [id number]) Sensation Evaluation Gross Sensation Gross Sensation Right LE Impaired Sensation Description Numbness Dermatome Impairments L2,L3,L4 Deep Tendon Reflex & Clonus Assessment Deep Tendon Reflex Right Achilles Deep Tendon Reflex 1+ Diminished Right Patellar Deep Tendon Reflex 2+ Normal PT-OP-J Posture/Palpation/Skin Start: 07/01/20 18:23 Freq: Status: Active Protocol: Document 07/11/20 11:24 LRN (Rec: 07/11/20 12:28 LRN [id number]) Posture Evaluation Comments Posture Comments Mild forward head. Increased lumbar lordosis. R shoulder depressed, R hip elevated. C-curve lower thoracic to sacrum with apex on left. Palpation Assessment Location Lumbar Spine Palpation Location PA glide Spinous process L4-L5 Palpation Findings Tenderness Palpation Details Pt denies tenderness at R Lumbar Transverse processes and facets joints with PA pressure. Low back Palpation Location Lumbar paraspinals Palpation Findings Soft Tissue Tightness,Muscle Guarding Palpation Details Right worse than left. PT-OP-K Range of Motion Start: 07/01/20 18:23 Freq: Status: Active Protocol: Document 07/11/20 11:24 LRN (Rec: 07/11/20 18:48 LRN [id number]) Lumbar Spine Range of Motion Lumbar Spine Active Degrees Testing Position Standing Flexion 35 Extension 14 Rotation Left 45 Rotation Right 20 Lateral Flexion Left 15 Lateral Flexion Right 10 Hip Goniometric Range of Motion Hip Left Passive Testing Position Supine Straight Leg Raise 50 Abduction 35 Internal Rotation 30 External Rotation 70 Comments Active SLR was 50 deg's. Right Passive Testing Position Supine Straight Leg Raise 40 Abduction 30 Internal Rotation 35 External Rotation 55 Comments Active SLR was 30 deg's. PT-OP-L Special Tests Start: 07/01/20 18:23 Freq: Status: Active Protocol: Document 07/11/20 11:24 LRN (Rec: 07/11/20 18:48 LRN [id number]) Special Tests Lumbar Spine Special Tests Vertical Spine Loading Test Results - Comments No change in R LE symptoms Straight Leg Raise Test Results + right Comments Hamstring tightness report bilaterally Manual Traction Test Results - Comments No change in R LE symptoms PT-OP-M Strength Start: 07/01/20 18:23 Freq: Status: Active Protocol: Document 08/11/20 09:49 LRN (Rec: 08/11/20 10:33 LRN [id number]) Knee Strength Knee Manual Muscle Testing Left Flexion (S2) 4+ Good+ Extension (L3) 5 Normal Right Flexion (S2) 3+ Fair+ Extension (L3) 4+ Good+ Ankle/Foot Strength Ankle and Foot Manual Muscle Testing Left Comments Generally 5/5 Right Dorsiflexion (L4) 4 Good Inversion 4 Good Eversion (S1) 4 Good PT-OP-Q Treatments Start: 07/01/20 18:23 Freq: Status: Active Protocol: Document 08/11/20 09:49 LRN (Rec: 08/11/20 10:33 LRN [id number]) Therapeutic Exercises Sitting Exercises Ankle IV Sitting Exercise Name Ankle IV (planting leg behind active leg) Side right Equipment Used Lev 1 TB Reps/Minutes Hold 3 x 15 Comments Extra time taken for training Ankle EV Sitting Exercise Name Ankle EV Side right Equipment Used Lev 1 TB Reps/Minutes Hold 3 x 15 Comments Extra time taken for training Ankle DF Sitting Exercise Name Active DF (bilateral) & with TB (right) Side right Equipment Used Lev 1 TB Reps/Minutes Hold 5 x 15 Comments Extra time taken for training Standing Exercises sit to stands Standing Exercise Name Sit <-> stands Reps/Minutes 10x Comments Pt needed v. cuing for proper back positioning to start Neuro Re-Education Treatment Balance Activities SLS Details SLS in sock feet, hands across chest. Surface Fat Reps/Duration 4 Comments L: 3-5 secs R: 1 sec Self-Care/Home Management Treatment Activities Self-Care/Home Management Activities Issued & reviewed HEP: Ankle strengthening and issued Lev 1 TB. PT-OP-R Modalities Start: 07/01/20 18:23 Freq: Status: Active Protocol: Document 08/01/20 09:00 DLM (Rec: 08/01/20 11:12 DLM [id number]) Electric Stimulation Electric Stimulation Interferential Current (IFC) Body Location lumbosacral Duration (Minutes) 15 Intensity 8 Target/Sweep Sweep Patient Position Hooklying Combined With Heat/Cold Hot Pack Comments Decreased pain reported with treatment, medication patch removed before IFC PT-OP-T Assessment and Plan Start: 07/01/20 18:23 Freq: Status: Active Protocol: Document 08/11/20 09:49 LRN (Rec: 08/11/20 10:33 LRN [id number]) Physical Therapy Assessment Goals Three Impairment Dec'd core strength (not able to maintain core stability w/ LE resistance) Short Term Goal (STG) Pt will be educated in core stabilization program. STG Duration 08/08/20 (07/18/20: Initiated & progressing) Group Home Goal (LTG) Pt will be able to maintain core stability with resistance to the LE's resulting in decreased pain complaints with hiking/walking. LTG Duration 10/09/20 Two Impairment Decreased R LE strength Short Term Goal (STG) Increase R LE strength with pt able to SLS with confidence for no less than 30 secs. (08/11/20: R: 1 sec, L: 3-5 secs) STG Duration 09/10/19 Group Home Goal (LTG) R LE strength of 5/5 with pt able to ambulate stairs with an alternating gait without fear of falling. LTG Duration 10/09/20 One Impairment Pt lacks appropriate self care HEP Promotions Specialist Goal (LTG) Pt will be independent in a self care HEP of flexibility and strengthening exercises. LTG Duration 10/09/20 (08/11/20: Progressing) Progress Towards Goals Progress Comments Pt R LE strength improved with pt confident enough to attempt SLS ex. Assessment Summary Assessment NO pain with R LE; therefore STM of Quads/Hams not needed. Sit to stand posture is good. RLE (knee/ankle) weak. Physical Therapy Plan Frequency and Duration Frequency of Treatment 2x/Week Duration of Treatment 3 months Plan of Care Start Date 07/11/20 Plan of Care End Date 10/09/20 Next Visit Focus/Plan Next Note Type Progress Note Next Visit Plan Work on proper squat form for retrieving objects from floor and ex to improve ability. Focus on improving core & R LE strengthening to improve function and progress towards pt goal of being able to go long distance hiking. IFC only as needed for pain or to improve mobility of L/S.
--- NOTE | 2020-08-16 13:10 | PT.OTN ---
Current Diagnoses Intervertebral disc disorders with radiculopathy, lumbar region (08/16/20) Physical Therapy Treatment Note PT-OP-A Visit Information Start: 07/01/20 18:23 Freq: Status: Active Protocol: Document 08/16/20 10:40 LRN (Rec: 08/16/20 11:22 LRN [id number]) Out-Patient Physical Therapy Visit Information Visit Information Visit Type Progress Note Visit Start Time 10:40 Visit Stop Time 11:22 Total Visit Minutes 42 Visit Number 10 Evaluation Information Evaluation Date 07/11/20 Precautions Precautions Fall history due to current condition. PT-OP-B Current Condition Start: 07/01/20 18:23 Freq: Status: Active Protocol: Document 07/11/20 11:24 LRN (Rec: 07/11/20 12:28 LRN [id number]) Current Condition History of Current Condition Onset Date May 25, 2020. Current Complaints R leg numbness and weakness. History of Current Condition Pt reports numbness and a tired feeling in the R leg. States she went hiking the other day and felt she was incapable of normal walking. States she used to stand on one leg with the other up on a counter to shave her legs, but now when trying to stand on R leg, her leg gives out. States she has fallen several times to the ground due to the RLE giving out. When having pain: Aches in groin anteriorly to ankle of RLE. A week after injury she saw a chiropractor friend and was referred to Dr. Vega who suggested an injection. She deferred and instead went to see her spouse's neurosurgeon (Dr. Francisco Lora) and was given a referral by his assistant secretary PRAVEEN Edward at [facility]. Prior Treatments and Tests MRI @ [facility] indicates trace degenerative retrolisthesis of L4 on L5 and L3 onL4. Disc Bulge: T12-L1 Moderate diffuse, L1-L2 Minimal, L2-L3 Mild, L3-L4 Large free disc fragment that migrated superior to the disc space, eccentric to the right at L3-L4 impinging on the R L3 nerve root and posteriorly deviates the right L4 nerve root and moderate diffuse disc bulge and moderate to severe canal stenosis. Mild rod foraminal narrowing. L4-L5: Moderate to severe disc height loss, chronic & disc protrusion deviating the left L5 nerve root posteriorly. L5 vertebral body is partially sacralized. Future Testing and Treatments Planned Will follow up with Dr. Mcqueen the first of August. Developmental History Developmental History Pt states she herniated 2 discs, L4-5 or L3-4 when reached over and lifted something heavy with the R hand resulting in numbness in the R lateral thigh to anterior lower leg (lower leg is most painful). Initially pain was at groin and in front of the anterior leg. A week ago was stepping down from a chair and the R leg wouldn't hold her. Treatment Goals Patient/Caregiver Goals Pt goal: to stretch and be careful to develop strength in the R leg and core, and to regain strength and eliminate numbness of the R leg. Prior Functional Status Baseline Function- ADL's Independent Baseline Function- Mobility Independent Baseline Function- Gait Able to slow jog/fast walk, up to the neighbors when in a hurry, can't now. 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 Baseline Function- Recreation/Hobbies Hiked trails a couple miles a couple days a week. Current Functional Impairments (Reported) Functional Limitations- ADL's Not able to lift objects. Not able to slow jog/fast walk to neighbors house. Limited in descending stairs, steps, hiking due to RLE weakness. Functional Limitations- Work/School Gets up every hour to walk 500 + steps. R LE is numb but begins to hurt as the day goes on. 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 PT-OP-C Subjective Start: 07/01/20 18:23 Freq: Status: Active Protocol: Document 08/16/20 10:40 LRN (Rec: 08/16/20 11:22 LRN [id number]) OP-PT Subjective Patient Comments Patient Comments States she is good. Seeing Dr James Richardson & Dr Mcqueen for a televisit. R LE strength is now 80% (initially was 10%) PT-OP-E Functional Tests Start: 07/01/20 18:23 Freq: Status: Active Protocol: Document 08/16/20 10:40 LRN (Rec: 08/16/20 11:22 LRN [id number]) Functional Tests Other SLS Name of Test Single Leg Stance Score L 2 sec, R 4 sec. Comment Pt is R-handed dominant. PT-OP-G Mobility & Gait Start: 07/01/20 18:23 Freq: Status: Active Protocol: Document 08/16/20 10:40 LRN (Rec: 08/16/20 11:22 LRN [id number]) Stair Climbing Evaluation Evaluation Level of Assist On Stairs Independent Devices Stair Climbing Assistive Devices None Technique/Endurance Stair Climbing Direction Ascend and Descend Stair Climbing Technique Step Over Step Number of Steps Climbed 4 Stair Climbing Set # Repetitions (reps) 2 Comments Stair Climbing Comments Mild weakness noted with descending (ECC contraction on RLE). PT-OP-H Neuro Start: 07/01/20 18:23 Freq: Status: Active Protocol: Document 07/11/20 11:24 LRN (Rec: 07/11/20 12:28 LRN [id number]) Sensation Evaluation Gross Sensation Gross Sensation Right LE Impaired Sensation Description Numbness Dermatome Impairments L2,L3,L4 Deep Tendon Reflex & Clonus Assessment Deep Tendon Reflex Right Achilles Deep Tendon Reflex 1+ Diminished Right Patellar Deep Tendon Reflex 2+ Normal PT-OP-J Posture/Palpation/Skin Start: 07/01/20 18:23 Freq: Status: Active Protocol: Document 07/11/20 11:24 LRN (Rec: 07/11/20 12:28 LRN [id number]) Posture Evaluation Comments Posture Comments Mild forward head. Increased lumbar lordosis. R shoulder depressed, R hip elevated. C-curve lower thoracic to sacrum with apex on left. Palpation Assessment Location Lumbar Spine Palpation Location PA glide Spinous process L4-L5 Palpation Findings Tenderness Palpation Details Pt denies tenderness at R Lumbar Transverse processes and facets joints with PA pressure. Low back Palpation Location Lumbar paraspinals Palpation Findings Soft Tissue Tightness,Muscle Guarding Palpation Details Right worse than left. PT-OP-K Range of Motion Start: 07/01/20 18:23 Freq: Status: Active Protocol: Document 07/11/20 11:24 LRN (Rec: 07/11/20 18:48 LRN [id number]) Lumbar Spine Range of Motion Lumbar Spine Active Degrees Testing Position Standing Flexion 35 Extension 14 Rotation Left 45 Rotation Right 20 Lateral Flexion Left 15 Lateral Flexion Right 10 Hip Goniometric Range of Motion Hip Left Passive Testing Position Supine Straight Leg Raise 50 Abduction 35 Internal Rotation 30 External Rotation 70 Comments Active SLR was 50 deg's. Right Passive Testing Position Supine Straight Leg Raise 40 Abduction 30 Internal Rotation 35 External Rotation 55 Comments Active SLR was 30 deg's. PT-OP-L Special Tests Start: 07/01/20 18:23 Freq: Status: Active Protocol: Document 07/11/20 11:24 LRN (Rec: 07/11/20 18:48 LRN [id number]) Special Tests Lumbar Spine Special Tests Vertical Spine Loading Test Results - Comments No change in R LE symptoms Straight Leg Raise Test Results + right Comments Hamstring tightness report bilaterally Manual Traction Test Results - Comments No change in R LE symptoms PT-OP-M Strength Start: 07/01/20 18:23 Freq: Status: Active Protocol: Document 08/16/20 10:40 LRN (Rec: 08/16/20 11:22 LRN [id number]) Hip Strength Hip Manual Muscle Testing Left Flexion (L2) 5 Normal Right Flexion (L2) 3+ Fair+ PT-OP-Q Treatments Start: 07/01/20 18:23 Freq: Status: Active Protocol: Document 08/16/20 10:40 LRN (Rec: 08/16/20 11:22 LRN [id number]) Therapeutic Exercises Supine Exercises SLR Supine Exercise Name SLR w/core stabilized Side right Reps/Minutes 10x Sidelying Exercises Hip AD Sidelying Exercise Name Hip AD/Core stab Side right Reps/Minutes 15x Hip AB Sidelying Exercise Name Hip AB/Core stab Side right Reps/Minutes 15x Sitting Exercises Ankle IV Sitting Exercise Name Ankle IV (planting leg behind active leg) Side right Equipment Used Lev 1 TB, band around arch Reps/Minutes 10x 2 Comments Extra time taken for review training Ankle EV Sitting Exercise Name Ankle EV Side right Equipment Used Lev 1 TB, band around arch region Reps/Minutes 10x 2 Comments Extra time taken for training Ankle DF Sitting Exercise Name Active DF (bilateral) & with TB (right) Side right Equipment Used Lev 1 TB, band around arch Reps/Minutes 10 x 2 Comments Extra time taken for training Standing Exercises Step up/down Standing Exercise Name Step ups fwd and bkwd Side right Reps/Minutes 10' Comments Phys & v cuing needed sit to stands Standing Exercise Name R leg sit to stand Reps/Minutes 10x Neuro Re-Education Treatment Balance Activities SLS Details SLS in sock feet, hands across chest. Surface Flat Reps/Duration 2 Comments L: 2 secs R: 4 secs Self-Care/Home Management Treatment Education Patient Education Home Exercise Program Activities Self-Care/Home Management Activities Written instructions and verbal review for LE/core strengthening: SLR/core stab & hip AB/AD with core stab, sit to stands with R LE. PT-OP-R Modalities Start: 07/01/20 18:23 Freq: Status: Active Protocol: Document 08/01/20 09:00 DLM (Rec: 08/01/20 11:12 DLM [id number]) Electric Stimulation Electric Stimulation Interferential Current (IFC) Body Location lumbosacral Duration (Minutes) 15 Intensity 8 Target/Sweep Sweep Patient Position Hooklying Combined With Heat/Cold Hot Pack Comments Decreased pain reported with treatment, medication patch removed before IFC PT-OP-T Assessment and Plan Start: 07/01/20 18:23 Freq: Status: Active Protocol: Document 08/16/20 10:40 LRN (Rec: 08/16/20 11:22 LRN [id number]) Physical Therapy Assessment Goals Three Impairment Dec'd core strength (not able to maintain core stability w/ LE resistance) Short Term Goal (STG) Pt will be educated in core stabilization program. STG Duration 08/08/20 (07/18/20: Initiated & progressing) Kiln Puller Goal (LTG) Pt will be able to maintain core stability with resistance to the LE's resulting in decreased pain complaints with hiking/walking. (08/16/20: Core moderate to mildly stabilized with R LE resistance to flex, stabilized with LLE resistance to flex). LTG Duration 10/09/20 (08/16/20: Improving) Two Impairment Decreased R LE strength Short Term Goal (STG) Increase R LE strength with pt able to SLS with confidence for no less than 30 secs. (08/16/20: R: 4 sec, L: 2 secs) STG Duration 09/10/19 Kiln Puller Goal (LTG) R LE strength of 5/5 with pt able to ambulate stairs with an alternating gait without fear of falling. LTG Duration 10/09/20 One Impairment Pt lacks appropriate self care HEP Kiln Puller Goal (LTG) Pt will be independent in a self care HEP of flexibility and strengthening exercises. LTG Duration 10/09/20 (08/16/20: Progressing) Progress Towards Goals Progress Comments SLS improved on R to 4 secs ( was 2 secs), R is better than L. Assessment Summary Assessment Pt not too familiar with ankle exercises; therefore questionable adherence to HEP. Pt control with stair ambulation has improved during ECC loading phase of R LE. SLS is poor but improving. Physical Therapy Plan Frequency and Duration Frequency of Treatment 2x/Week Duration of Treatment 3 months Plan of Care Start Date 07/11/20 Plan of Care End Date 10/09/20 Next Visit Focus/Plan Next Note Type Treatment Note Next Visit Plan Issue HEP for strengthening: SLR, core/hip AB & AD. Try TM to increase walking tolerance , continue to work on ability to squat for retrieving objects from floor, add Shuttle recovery ex to improve squat ability. Focus on improving core & R LE strengthening to improve function and progress towards pt goal of being able to go long distance hiking. Balance training & ex (ankles) IFC only as needed for pain or to improve mobility of L/S.
--- NOTE | 2020-08-16 13:16 | PT.OPPN ---
Current Diagnoses Intervertebral disc disorders with radiculopathy, lumbar region (08/16/20) Physical Therapy Progress Note PT-OP-A Visit Information Start: 07/01/20 18:23 Freq: Status: Active Protocol: Document 08/16/20 10:40 LRN (Rec: 08/16/20 11:22 LRN [id number]) Out-Patient Physical Therapy Visit Information Visit Information Visit Type Progress Note Visit Start Time 10:40 Visit Stop Time 11:22 Total Visit Minutes 42 Visit Number 10 Evaluation Information Evaluation Date 07/11/20 Precautions Precautions Fall history due to current condition. PT-OP-B Current Condition Start: 07/01/20 18:23 Freq: Status: Active Protocol: Document 07/11/20 11:24 LRN (Rec: 07/11/20 12:28 LRN [id number]) Current Condition History of Current Condition Onset Date May 25, 2020. Current Complaints R leg numbness and weakness. History of Current Condition Pt reports numbness and a tired feeling in the R leg. States she went hiking the other day and felt she was incapable of normal walking. States she used to stand on one leg with the other up on a counter to shave her legs, but now when trying to stand on R leg, her leg gives out. States she has fallen several times to the ground due to the RLE giving out. When having pain: Aches in groin anteriorly to ankle of RLE. A week after injury she saw a chiropractor friend and was referred to Dr. Vega who suggested an injection. She deferred and instead went to see her spouse's neurosurgeon (Dr. Francisco Lora) and was given a referral by his assistant professor of philosophy PRAVEEN Edward at [facility]. Prior Treatments and Tests MRI @ [facility] indicates trace degenerative retrolisthesis of L4 on L5 and L3 onL4. Disc Bulge: T12-L1 Moderate diffuse, L1-L2 Minimal, L2-L3 Mild, L3-L4 Large free disc fragment that migrated superior to the disc space, eccentric to the right at L3-L4 impinging on the R L3 nerve root and posteriorly deviates the right L4 nerve root and moderate diffuse disc bulge and moderate to severe canal stenosis. Mild rod foraminal narrowing. L4-L5: Moderate to severe disc height loss, chronic & disc protrusion deviating the left L5 nerve root posteriorly. L5 vertebral body is partially sacralized. Future Testing and Treatments Planned Will follow up with Dr. Mcqueen the first of August. Developmental History Developmental History Pt states she herniated 2 discs, L4-5 or L3-4 when reached over and lifted something heavy with the R hand resulting in numbness in the R lateral thigh to anterior lower leg (lower leg is most painful). Initially pain was at groin and in front of the anterior leg. A week ago was stepping down from a chair and the R leg wouldn't hold her. Treatment Goals Patient/Caregiver Goals Pt goal: to stretch and be careful to develop strength in the R leg and core, and to regain strength and eliminate numbness of the R leg. Prior Functional Status Baseline Function- ADL's Independent Baseline Function- Mobility Independent Baseline Function- Gait Able to slow jog/fast walk, up to the neighbors when in a hurry, can't now. 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 Baseline Function- Recreation/Hobbies Hiked trails a couple miles a couple days a week. Current Functional Impairments (Reported) Functional Limitations- ADL's Not able to lift objects. Not able to slow jog/fast walk to neighbors house. Limited in descending stairs, steps, hiking due to RLE weakness. Functional Limitations- Work/School Gets up every hour to walk 500 + steps. R LE is numb but begins to hurt as the day goes on. 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 PT-OP-C Subjective Start: 07/01/20 18:23 Freq: Status: Active Protocol: Document 08/16/20 10:40 LRN (Rec: 08/16/20 11:22 LRN [id number]) OP-PT Subjective Patient Comments Patient Comments States she is good. Seeing Dr James Richardson & Dr Mcqueen for a televisit. R LE strength is now 80% (initially was 10%) PT-OP-E Functional Tests Start: 07/01/20 18:23 Freq: Status: Active Protocol: Document 08/16/20 10:40 LRN (Rec: 08/16/20 11:22 LRN [id number]) Functional Tests Other SLS Name of Test Single Leg Stance Score L 2 sec, R 4 sec. Comment Pt is R-handed dominant. PT-OP-G Mobility & Gait Start: 07/01/20 18:23 Freq: Status: Active Protocol: Document 08/16/20 10:40 LRN (Rec: 08/16/20 11:22 LRN [id number]) Stair Climbing Evaluation Evaluation Level of Assist On Stairs Independent Devices Stair Climbing Assistive Devices None Technique/Endurance Stair Climbing Direction Ascend and Descend Stair Climbing Technique Step Over Step Number of Steps Climbed 4 Stair Climbing Set # Repetitions (reps) 2 Comments Stair Climbing Comments Mild weakness noted with descending (ECC contraction on RLE). PT-OP-H Neuro Start: 07/01/20 18:23 Freq: Status: Active Protocol: Document 07/11/20 11:24 LRN (Rec: 07/11/20 12:28 LRN [id number]) Sensation Evaluation Gross Sensation Gross Sensation Right LE Impaired Sensation Description Numbness Dermatome Impairments L2,L3,L4 Deep Tendon Reflex & Clonus Assessment Deep Tendon Reflex Right Achilles Deep Tendon Reflex 1+ Diminished Right Patellar Deep Tendon Reflex 2+ Normal PT-OP-J Posture/Palpation/Skin Start: 07/01/20 18:23 Freq: Status: Active Protocol: Document 07/11/20 11:24 LRN (Rec: 07/11/20 12:28 LRN [id number]) Posture Evaluation Comments Posture Comments Mild forward head. Increased lumbar lordosis. R shoulder depressed, R hip elevated. C-curve lower thoracic to sacrum with apex on left. Palpation Assessment Location Lumbar Spine Palpation Location PA glide Spinous process L4-L5 Palpation Findings Tenderness Palpation Details Pt denies tenderness at R Lumbar Transverse processes and facets joints with PA pressure. Low back Palpation Location Lumbar paraspinals Palpation Findings Soft Tissue Tightness,Muscle Guarding Palpation Details Right worse than left. PT-OP-K Range of Motion Start: 07/01/20 18:23 Freq: Status: Active Protocol: Document 07/11/20 11:24 LRN (Rec: 07/11/20 18:48 LRN [id number]) Lumbar Spine Range of Motion Lumbar Spine Active Degrees Testing Position Standing Flexion 35 Extension 14 Rotation Left 45 Rotation Right 20 Lateral Flexion Left 15 Lateral Flexion Right 10 Hip Goniometric Range of Motion Hip Measured in Degrees Left Passive Testing Position Supine Straight Leg Raise 50 Abduction 35 Internal Rotation 30 External Rotation 70 Comments Active SLR was 50 deg's. Right Passive Testing Position Supine Straight Leg Raise 40 Abduction 30 Internal Rotation 35 External Rotation 55 Comments Active SLR was 30 deg's. PT-OP-L Special Tests Start: 07/01/20 18:23 Freq: Status: Active Protocol: Document 07/11/20 11:24 LRN (Rec: 07/11/20 18:48 LRN [id number]) Special Tests Lumbar Spine Special Tests Vertical Spine Loading Test Results - Comments No change in R LE symptoms Straight Leg Raise Test Results + right Comments Hamstring tightness report bilaterally Manual Traction Test Results - Comments No change in R LE symptoms PT-OP-M Strength Start: 07/01/20 18:23 Freq: Status: Active Protocol: Document 08/16/20 10:40 LRN (Rec: 08/16/20 11:22 LRN [id number]) Hip Strength Hip Manual Muscle Testing Left Flexion (L2) 5 Normal Right Flexion (L2) 3+ Fair+ PT-OP-T Assessment and Plan Start: 07/01/20 18:23 Freq: Status: Active Protocol: Document 08/16/20 10:40 LRN (Rec: 08/16/20 11:22 LRN [id number]) Physical Therapy Assessment Evaluation Complexity Number of Personal Factors/Comorbidities 1-2 Number of Body Systems Impaired 4 or More Clinical Presentation at Evaluation Evolving Impairments Impairments Activity Tolerance,Pain,ROM, Strength,Transfers Goals Three Impairment Dec'd core strength (not able to maintain core stability w/ LE resistance) Short Term Goal (STG) Pt will be educated in core stabilization program. STG Duration 08/08/20 (07/18/20: Initiated & progressing) Alf Goal (LTG) Pt will be able to maintain core stability with resistance to the LE's resulting in decreased pain complaints with hiking/walking. (08/16/20: Core moderate to mildly stabilized with R LE resistance to flex, stabilized with LLE resistance to flex). LTG Duration 10/09/20 (08/16/20: Improving) Two Impairment Decreased R LE strength Short Term Goal (STG) Increase R LE strength with pt able to SLS with confidence for no less than 30 secs. (08/16/20: R: 4 sec, L: 2 secs) STG Duration 09/10/19 Alf Goal (LTG) R LE strength of 5/5 with pt able to ambulate stairs with an alternating gait without fear of falling. LTG Duration 10/09/20 One Impairment Pt lacks appropriate self care HEP Paper Cup Machine Tender Goal (LTG) Pt will be independent in a self care HEP of flexibility and strengthening exercises. LTG Duration 10/09/20 (08/16/20: Progressing) Progress Towards Goals Progress Comments SLS improved on R to 4 secs ( was 2 secs), R is better than L. Assessment Summary Assessment Pt not too familiar with ankle exercises; therefore questionable adherence to HEP. Pt control with stair ambulation has improved during ECC loading phase of R LE. SLS is poor but improving. Pt will benefit from continued physical therapy to improve her RLE strength for greater stability/balance and safety with stairs and recreational activities such as hiking. Physical Therapy Plan Frequency and Duration Frequency of Treatment 2x/Week Duration of Treatment 3 months Plan of Care Start Date 07/11/20 Plan of Care End Date 10/09/20 Therapeutic Interventions Therapeutic Interventions Home Exercise Program,Joint Mobilizations,Manual Therapy, Neuromuscular Re-education, Patient/Caregiver Education, Self-Care/Home Management,Soft Tissue Mobilization,Taping, Therapeutic Activities, Therapeutic Exercises Modalities Cold Pack/Ice Massage,Electric Stimulation,Hot Packs, Traction- Mechanical, Ultrasound Next Visit Focus/Plan Next Note Type Treatment Note Next Visit Plan Issue HEP for strengthening: SLR, core/hip AB & AD. Try TM to increase walking tolerance , continue to work on ability to squat for retrieving objects from floor, add Shuttle recovery ex to improve squat ability. Focus on improving core & R LE strengthening to improve function and progress towards pt goal of being able to go long distance hiking. Balance training & ex (ankles) IFC only as needed for pain or to improve mobility of L/S.
--- NOTE | 2020-08-16 13:16 | PT.OPPOC ---
Physical, Occupational & Speech Therapy At [facility] Current Diagnoses Intervertebral disc disorders with radiculopathy, lumbar region (08/16/20) Visit Care Team Role Provider Type Archana Jo MD Family Provider Physician Primary Care Provider Specialty: Internal Medicine Address: [address] [place] [address], [id number] Email: [email or web address] Rodrigue Richardson, MSN, RN Attending Provider Non-Staff Referring Provider Specialty: Nursing Address: [address] [place] [address], [address], [place], [address] Email: Plan Of Care PT-OP-T Assessment and Plan Start: 07/01/20 18:23 Freq: Status: Active Protocol: Document 08/16/20 10:40 LRN (Rec: 08/16/20 11:22 LRN [id number]) Physical Therapy Assessment Evaluation Complexity Number of Personal Factors/Comorbidities 1-2 Number of Body Systems Impaired 4 or More Clinical Presentation at Evaluation Evolving Impairments Impairments Activity Tolerance,Pain,ROM, Strength,Transfers Goals Three Impairment Dec'd core strength (not able to maintain core stability w/ LE resistance) Short Term Goal (STG) Pt will be educated in core stabilization program. STG Duration 08/08/20 (07/18/20: Initiated & progressing) Siding Installer Goal (LTG) Pt will be able to maintain core stability with resistance to the LE's resulting in decreased pain complaints with hiking/walking. (08/16/20: Core moderate to mildly stabilized with R LE resistance to flex, stabilized with LLE resistance to flex). LTG Duration 10/09/20 (08/16/20: Improving) Two Impairment Decreased R LE strength Short Term Goal (STG) Increase R LE strength with pt able to SLS with confidence for no less than 30 secs. (08/16/20: R: 4 sec, L: 2 secs) STG Duration 09/10/19 Siding Installer Goal (LTG) R LE strength of 5/5 with pt able to ambulate stairs with an alternating gait without fear of falling. LTG Duration 10/09/20 One Impairment Pt lacks appropriate self care HEP Siding Installer Goal (LTG) Pt will be independent in a self care HEP of flexibility and strengthening exercises. LTG Duration 10/09/20 (08/16/20: Progressing) Progress Towards Goals Progress Comments SLS improved on R to 4 secs ( was 2 secs), R is better than L. Assessment Summary Assessment Pt not too familiar with ankle exercises; therefore questionable adherence to HEP. Pt control with stair ambulation has improved during ECC loading phase of R LE. SLS is poor but improving. Pt will benefit from continued physical therapy to improve her RLE strength for greater stability/balance and safety with stairs and recreational activities such as hiking. Physical Therapy Plan Frequency and Duration Frequency of Treatment 2x/Week Duration of Treatment 3 months Plan of Care Start Date 07/11/20 Plan of Care End Date 10/09/20 Therapeutic Interventions Therapeutic Interventions Home Exercise Program,Joint Mobilizations,Manual Therapy, Neuromuscular Re-education, Patient/Caregiver Education, Self-Care/Home Management,Soft Tissue Mobilization,Taping, Therapeutic Activities, Therapeutic Exercises Modalities Cold Pack/Ice Massage,Electric Stimulation,Hot Packs, Traction- Mechanical, Ultrasound Next Visit Focus/Plan Next Note Type Treatment Note Next Visit Plan Issue HEP for strengthening: SLR, core/hip AB & AD. Try TM to increase walking tolerance , continue to work on ability to squat for retrieving objects from floor, add Shuttle recovery ex to improve squat ability. Focus on improving core & R LE strengthening to improve function and progress towards pt goal of being able to go long distance hiking. Balance training & ex (ankles) IFC only as needed for pain or to improve mobility of L/S. Plan of Care Dates Plan of Care Start Date 07/11/20 Plan of Care End Date 10/09/20 Electronically Signed by: Archana Clemons, PT 08/16/20 [id number] Please Sign and Return: I have reviewed this Plan of Care and certify that the skilled therapy services above are required to meet the patient?s needs. Physician Signature Date Printed Name and Credentials Clinical Instructor Signature Printed Name and Credentials
--- NOTE | 2020-08-18 10:49 | PT.OTN ---
Current Diagnoses Intervertebral disc disorders with radiculopathy, lumbar region (08/18/20) Physical Therapy Treatment Note PT-OP-A Visit Information Start: 07/01/20 18:23 Freq: Status: Active Protocol: Document 08/18/20 09:06 LRN (Rec: 08/18/20 09:46 LRN [id number]) Out-Patient Physical Therapy Visit Information Visit Information Visit Type Treatment Note Visit Start Time 09:06 Visit Stop Time 09:46 Total Visit Minutes 40 Visit Number 11 Evaluation Information Evaluation Date 07/11/20 Precautions Precautions Fall history due to current condition. PT-OP-B Current Condition Start: 07/01/20 18:23 Freq: Status: Active Protocol: Document 07/11/20 11:24 LRN (Rec: 07/11/20 12:28 LRN [id number]) Current Condition History of Current Condition Onset Date May 25, 2020. Current Complaints R leg numbness and weakness. History of Current Condition Pt reports numbness and a tired feeling in the R leg. States she went hiking the other day and felt she was incapable of normal walking. States she used to stand on one leg with the other up on a counter to shave her legs, but now when trying to stand on R leg, her leg gives out. States she has fallen several times to the ground due to the RLE giving out. When having pain: Aches in groin anteriorly to ankle of RLE. A week after injury she saw a chiropractor friend and was referred to Dr. Vega who suggested an injection. She deferred and instead went to see her spouse's neurosurgeon (Dr. Francisco Lora) and was given a referral by his certified anesthesiologist assistant PRAVEEN Edward at [facility]. Prior Treatments and Tests MRI @ [facility] indicates trace degenerative retrolisthesis of L4 on L5 and L3 onL4. Disc Bulge: T12-L1 Moderate diffuse, L1-L2 Minimal, L2-L3 Mild, L3-L4 Large free disc fragment that migrated superior to the disc space, eccentric to the right at L3-L4 impinging on the R L3 nerve root and posteriorly deviates the right L4 nerve root and moderate diffuse disc bulge and moderate to severe canal stenosis. Mild rod foraminal narrowing. L4-L5: Moderate to severe disc height loss, chronic & disc protrusion deviating the left L5 nerve root posteriorly. L5 vertebral body is partially sacralized. Future Testing and Treatments Planned Will follow up with Dr. Mcqueen the first of August. Developmental History Developmental History Pt states she herniated 2 discs, L4-5 or L3-4 when reached over and lifted something heavy with the R hand resulting in numbness in the R lateral thigh to anterior lower leg (lower leg is most painful). Initially pain was at groin and in front of the anterior leg. A week ago was stepping down from a chair and the R leg wouldn't hold her. Treatment Goals Patient/Caregiver Goals Pt goal: to stretch and be careful to develop strength in the R leg and core, and to regain strength and eliminate numbness of the R leg. Prior Functional Status Baseline Function- ADL's Independent Baseline Function- Mobility Independent Baseline Function- Gait Able to slow jog/fast walk, up to the neighbors when in a hurry, can't now. 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 Baseline Function- Recreation/Hobbies Hiked trails a couple miles a couple days a week. Current Functional Impairments (Reported) Functional Limitations- ADL's Not able to lift objects. Not able to slow jog/fast walk to neighbors house. Limited in descending stairs, steps, hiking due to RLE weakness. Functional Limitations- Work/School Gets up every hour to walk 500 + steps. R LE is numb but begins to hurt as the day goes on. 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 PT-OP-C Subjective Start: 07/01/20 18:23 Freq: Status: Active Protocol: Document 08/18/20 09:06 LRN (Rec: 08/18/20 09:46 LRN [id number]) OP-PT Subjective Patient Comments Patient Comments States she fractured a bone in the R foot 2 yrs ago. States the R lower leg and top of foot is numbish. States her R LE strength is 80% instead of 10% (at start). States last weekend she walked 3 miles and her RLE did not tire. PT-OP-E Functional Tests Start: 07/01/20 18:23 Freq: Status: Active Protocol: Document 08/16/20 10:40 LRN (Rec: 08/16/20 11:22 LRN [id number]) Functional Tests Other SLS Name of Test Single Leg Stance Score L 2 sec, R 4 sec. Comment Pt is R-handed dominant. PT-OP-G Mobility & Gait Start: 07/01/20 18:23 Freq: Status: Active Protocol: Document 08/16/20 10:40 LRN (Rec: 08/16/20 11:22 LRN [id number]) Stair Climbing Evaluation Evaluation Level of Assist On Stairs Independent Devices Stair Climbing Assistive Devices None Technique/Endurance Stair Climbing Direction Ascend and Descend Stair Climbing Technique Step Over Step Number of Steps Climbed 4 Stair Climbing Set # Repetitions (reps) 2 Comments Stair Climbing Comments Mild weakness noted with descending (ECC contraction on RLE). PT-OP-H Neuro Start: 07/01/20 18:23 Freq: Status: Active Protocol: Document 07/11/20 11:24 LRN (Rec: 07/11/20 12:28 LRN [id number]) Sensation Evaluation Gross Sensation Gross Sensation Right LE Impaired Sensation Description Numbness Dermatome Impairments L2,L3,L4 Deep Tendon Reflex & Clonus Assessment Deep Tendon Reflex Right Achilles Deep Tendon Reflex 1+ Diminished Right Patellar Deep Tendon Reflex 2+ Normal PT-OP-J Posture/Palpation/Skin Start: 07/01/20 18:23 Freq: Status: Active Protocol: Document 07/11/20 11:24 LRN (Rec: 07/11/20 12:28 LRN [id number]) Posture Evaluation Comments Posture Comments Mild forward head. Increased lumbar lordosis. R shoulder depressed, R hip elevated. C-curve lower thoracic to sacrum with apex on left. Palpation Assessment Location Lumbar Spine Palpation Location PA glide Spinous process L4-L5 Palpation Findings Tenderness Palpation Details Pt denies tenderness at R Lumbar Transverse processes and facets joints with PA pressure. Low back Palpation Location Lumbar paraspinals Palpation Findings Soft Tissue Tightness,Muscle Guarding Palpation Details Right worse than left. PT-OP-K Range of Motion Start: 07/01/20 18:23 Freq: Status: Active Protocol: Document 07/11/20 11:24 LRN (Rec: 07/11/20 18:48 LRN [id number]) Lumbar Spine Range of Motion Lumbar Spine Active Degrees Testing Position Standing Flexion 35 Extension 14 Rotation Left 45 Rotation Right 20 Lateral Flexion Left 15 Lateral Flexion Right 10 Hip Goniometric Range of Motion Hip Left Passive Testing Position Supine Straight Leg Raise 50 Abduction 35 Internal Rotation 30 External Rotation 70 Comments Active SLR was 50 deg's. Right Passive Testing Position Supine Straight Leg Raise 40 Abduction 30 Internal Rotation 35 External Rotation 55 Comments Active SLR was 30 deg's. PT-OP-L Special Tests Start: 07/01/20 18:23 Freq: Status: Active Protocol: Document 07/11/20 11:24 LRN (Rec: 07/11/20 18:48 LRN [id number]) Special Tests Lumbar Spine Special Tests Vertical Spine Loading Test Results - Comments No change in R LE symptoms Straight Leg Raise Test Results + right Comments Hamstring tightness report bilaterally Manual Traction Test Results - Comments No change in R LE symptoms PT-OP-M Strength Start: 07/01/20 18:23 Freq: Status: Active Protocol: Document 08/16/20 10:40 LRN (Rec: 08/16/20 11:22 LRN [id number]) Hip Strength Hip Manual Muscle Testing Left Flexion (L2) 5 Normal Right Flexion (L2) 3+ Fair+ PT-OP-Q Treatments Start: 07/01/20 18:23 Freq: Status: Active Protocol: Document 08/18/20 09:06 LRN (Rec: 08/18/20 09:46 LRN [id number]) Cardio Equipment Treadmill Duration (Minutes) 5 Speed 1.6 Incline 0 Gym Equipment Shuttle Recovery Bilateral Squats Details Bilateral squats Resistance 50# Shuttle Recovery Platform Stable Reps/Time 4' Therapeutic Exercises Supine Exercises SLR Supine Exercise Name SLR w/core stabilized, R>L Side bilateral Reps/Minutes 10x each Sidelying Exercises Hip AD Sidelying Exercise Name Hip AD/Core stab, R>L Side right Reps/Minutes 10x each Comments Extra time for training of stabilizing Hip AB Sidelying Exercise Name Hip AB/Core stab Side right Reps/Minutes 10x each Comments Extra time for training of stabilizing Sitting Exercises Ankle IV Sitting Exercise Name Ankle IV (planting leg behind active leg) Side right Equipment Used Lev 1 TB, band around arch Reps/Minutes 10x 3 Comments Extra time taken for review training Ankle EV Sitting Exercise Name Ankle EV Side right Equipment Used Lev 1 TB, band around arch region Reps/Minutes 10x 3 Comments Extra time taken for training Standing Exercises Heel raises in 3 positions Standing Exercise Name Heel raises: Toes fwd, inward, outward Reps/Minutes 10x each Manual Therapy Treatment Manual Traction Lumbar Details lumbar traction Body Position Supine Reps/Duration 2' Self-Care/Home Management Treatment Education Patient Education Home Exercise Program Activities Self-Care/Home Management Activities Issued and review HEP for LE/ core strengthening: SLR/core stab & hip AB/AD with core stab. PT-OP-R Modalities Start: 07/01/20 18:23 Freq: Status: Active Protocol: Document 08/01/20 09:00 DLM (Rec: 08/01/20 11:12 DLM [id number]) Electric Stimulation Electric Stimulation Interferential Current (IFC) Body Location lumbosacral Duration (Minutes) 15 Intensity 8 Target/Sweep Sweep Patient Position Hooklying Combined With Heat/Cold Hot Pack Comments Decreased pain reported with treatment, medication patch removed before IFC PT-OP-T Assessment and Plan Start: 07/01/20 18:23 Freq: Status: Active Protocol: Document 08/18/20 09:06 LRN (Rec: 08/18/20 09:46 LRN [id number]) Physical Therapy Assessment Goals Three Impairment Dec'd core strength (not able to maintain core stability w/ LE resistance) Short Term Goal (STG) Pt will be educated in core stabilization program. STG Duration 08/08/20 (07/18/20: Initiated & progressing) Service Restorer Emergency Goal (LTG) Pt will be able to maintain core stability with resistance to the LE's resulting in decreased pain complaints with hiking/walking. (08/16/20: Core moderate to mildly stabilized with R LE resistance to flex, stabilized with LLE resistance to flex). LTG Duration 10/09/20 (08/16/20: Improving) Two Impairment Decreased R LE strength Short Term Goal (STG) Increase R LE strength with pt able to SLS with confidence for no less than 30 secs. (08/16/20: R: 4 sec, L: 2 secs) STG Duration 09/10/19 Service Restorer Emergency Goal (LTG) R LE strength of 5/5 with pt able to ambulate stairs with an alternating gait without fear of falling. LTG Duration 10/09/20 One Impairment Pt lacks appropriate self care HEP Service Restorer Emergency Goal (LTG) Pt will be independent in a self care HEP of flexibility and strengthening exercises. LTG Duration 10/09/20 (08/18/20: Progressing) Progress Towards Goals Progress Comments Progressing HEP Assessment Summary Assessment Pt familiar with ankle exercises, not familiar with hip AB ex. No change in R lower leg sensation with ex and no c/o back pain. Physical Therapy Plan Frequency and Duration Frequency of Treatment 2x/Week Duration of Treatment 3 months Plan of Care Start Date 07/11/20 Plan of Care End Date 10/09/20 Next Visit Focus/Plan Next Note Type Treatment Note Next Visit Plan Issue HEP for strengthening: sit to stand using primarily RLE. Add STM to anterior RLE/ foot & R lateral border of sacrum (after core stab on TM) . Progress onto core stab program HEP & continue to work on ability to squat for retrieving objects from floor, progress tolerance on Shuttle recovery ex to improve squat ability. Focus on normalizing R lower leg sensation & improving core/R LE strengthening to improve function and progress towards pt goal of being able to go long distance hiking. Balance training & ex (ankles) IFC only as needed for pain or to improve mobility of L/S.
--- NOTE | 2020-08-23 12:13 | PT.OTN ---
Current Diagnoses Intervertebral disc disorders with radiculopathy, lumbar region (08/23/20) Physical Therapy Treatment Note PT-OP-A Visit Information Start: 07/01/20 18:23 Freq: Status: Active Protocol: Document 08/23/20 09:06 LRN (Rec: 08/23/20 09:52 LRN [id number]) Out-Patient Physical Therapy Visit Information Visit Information Visit Type Treatment Note Visit Start Time 09:06 Visit Stop Time 09:50 Total Visit Minutes 42 Visit Number 12 PT-OP-B Current Condition Start: 07/01/20 18:23 Freq: Status: Active Protocol: Document 07/11/20 11:24 LRN (Rec: 07/11/20 12:28 LRN [id number]) Current Condition History of Current Condition Onset Date May 25, 2020. Current Complaints R leg numbness and weakness. History of Current Condition Pt reports numbness and a tired feeling in the R leg. States she went hiking the other day and felt she was incapable of normal walking. States she used to stand on one leg with the other up on a counter to shave her legs, but now when trying to stand on R leg, her leg gives out. States she has fallen several times to the ground due to the RLE giving out. When having pain: Aches in groin anteriorly to ankle of RLE. A week after injury she saw a chiropractor friend and was referred to Dr. Vega who suggested an injection. She deferred and instead went to see her spouse's neurosurgeon (Dr. Francisco Lora) and was given a referral by his registered dental assistant rda PRAVEEN Edward at [facility]. Prior Treatments and Tests MRI @ [facility] indicates trace degenerative retrolisthesis of L4 on L5 and L3 onL4. Disc Bulge: T12-L1 Moderate diffuse, L1-L2 Minimal, L2-L3 Mild, L3-L4 Large free disc fragment that migrated superior to the disc space, eccentric to the right at L3-L4 impinging on the R L3 nerve root and posteriorly deviates the right L4 nerve root and moderate diffuse disc bulge and moderate to severe canal stenosis. Mild rod foraminal narrowing. L4-L5: Moderate to severe disc height loss, chronic & disc protrusion deviating the left L5 nerve root posteriorly. L5 vertebral body is partially sacralized. Future Testing and Treatments Planned Will follow up with Dr. Mcqueen the first of August. Developmental History Developmental History Pt states she herniated 2 discs, L4-5 or L3-4 when reached over and lifted something heavy with the R hand resulting in numbness in the R lateral thigh to anterior lower leg (lower leg is most painful). Initially pain was at groin and in front of the anterior leg. A week ago was stepping down from a chair and the R leg wouldn't hold her. Treatment Goals Patient/Caregiver Goals Pt goal: to stretch and be careful to develop strength in the R leg and core, and to regain strength and eliminate numbness of the R leg. Prior Functional Status Baseline Function- ADL's Independent Baseline Function- Mobility Independent Baseline Function- Gait Able to slow jog/fast walk, up to the neighbors when in a hurry, can't now. 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 Baseline Function- Recreation/Hobbies Hiked trails a couple miles a couple days a week. Current Functional Impairments (Reported) Functional Limitations- ADL's Not able to lift objects. Not able to slow jog/fast walk to neighbors house. Limited in descending stairs, steps, hiking due to RLE weakness. Functional Limitations- Work/School Gets up every hour to walk 500 + steps. R LE is numb but begins to hurt as the day goes on. 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 PT-OP-C Subjective Start: 07/01/20 18:23 Freq: Status: Active Protocol: Document 08/23/20 09:06 LRN (Rec: 08/23/20 09:52 LRN [id number]) OP-PT Subjective Patient Comments Patient Comments not a good patient. Did a lot of walking and lifting and DA helped her to maintain proper body mechanics. Is planning to do some gardening this weekend. PT-OP-E Functional Tests Start: 07/01/20 18:23 Freq: Status: Active Protocol: Document 08/16/20 10:40 LRN (Rec: 08/16/20 11:22 LRN [id number]) Functional Tests Other SLS Name of Test Single Leg Stance Score L 2 sec, R 4 sec. Comment Pt is R-handed dominant. PT-OP-G Mobility & Gait Start: 07/01/20 18:23 Freq: Status: Active Protocol: Document 08/16/20 10:40 LRN (Rec: 08/16/20 11:22 LRN [id number]) Stair Climbing Evaluation Evaluation Level of Assist On Stairs Independent Devices Stair Climbing Assistive Devices None Technique/Endurance Stair Climbing Direction Ascend and Descend Stair Climbing Technique Step Over Step Number of Steps Climbed 4 Stair Climbing Set # Repetitions (reps) 2 Comments Stair Climbing Comments Mild weakness noted with descending (ECC contraction on RLE). PT-OP-H Neuro Start: 07/01/20 18:23 Freq: Status: Active Protocol: Document 07/11/20 11:24 LRN (Rec: 07/11/20 12:28 LRN [id number]) Sensation Evaluation Gross Sensation Gross Sensation Right LE Impaired Sensation Description Numbness Dermatome Impairments L2,L3,L4 Deep Tendon Reflex & Clonus Assessment Deep Tendon Reflex Right Achilles Deep Tendon Reflex 1+ Diminished Right Patellar Deep Tendon Reflex 2+ Normal PT-OP-J Posture/Palpation/Skin Start: 07/01/20 18:23 Freq: Status: Active Protocol: Document 07/11/20 11:24 LRN (Rec: 07/11/20 12:28 LRN [id number]) Posture Evaluation Comments Posture Comments Mild forward head. Increased lumbar lordosis. R shoulder depressed, R hip elevated. C-curve lower thoracic to sacrum with apex on left. Palpation Assessment Location Lumbar Spine Palpation Location PA glide Spinous process L4-L5 Palpation Findings Tenderness Palpation Details Pt denies tenderness at R Lumbar Transverse processes and facets joints with PA pressure. Low back Palpation Location Lumbar paraspinals Palpation Findings Soft Tissue Tightness,Muscle Guarding Palpation Details Right worse than left. PT-OP-K Range of Motion Start: 07/01/20 18:23 Freq: Status: Active Protocol: Document 07/11/20 11:24 LRN (Rec: 07/11/20 18:48 LRN [id number]) Lumbar Spine Range of Motion Lumbar Spine Active Degrees Testing Position Standing Flexion 35 Extension 14 Rotation Left 45 Rotation Right 20 Lateral Flexion Left 15 Lateral Flexion Right 10 Hip Goniometric Range of Motion Hip Left Passive Testing Position Supine Straight Leg Raise 50 Abduction 35 Internal Rotation 30 External Rotation 70 Comments Active SLR was 50 deg's. Right Passive Testing Position Supine Straight Leg Raise 40 Abduction 30 Internal Rotation 35 External Rotation 55 Comments Active SLR was 30 deg's. PT-OP-L Special Tests Start: 07/01/20 18:23 Freq: Status: Active Protocol: Document 07/11/20 11:24 LRN (Rec: 07/11/20 18:48 LRN [id number]) Special Tests Lumbar Spine Special Tests Vertical Spine Loading Test Results - Comments No change in R LE symptoms Straight Leg Raise Test Results + right Comments Hamstring tightness report bilaterally Manual Traction Test Results - Comments No change in R LE symptoms PT-OP-M Strength Start: 07/01/20 18:23 Freq: Status: Active Protocol: Document 08/16/20 10:40 LRN (Rec: 08/16/20 11:22 LRN [id number]) Hip Strength Hip Manual Muscle Testing Left Flexion (L2) 5 Normal Right Flexion (L2) 3+ Fair+ PT-OP-Q Treatments Start: 07/01/20 18:23 Freq: Status: Active Protocol: Document 08/23/20 09:06 LRN (Rec: 08/23/20 09:52 LRN [id number]) Therapeutic Exercises Sidelying Exercises Hip AD Sidelying Exercise Name Hip AD/Core stab, R>L Side right Equipment Used 2#, 1# Reps/Minutes 10x 3 Hip AB Sidelying Exercise Name Hip AB/Core stab Side bilateral Resistance 2#, 1# Reps/Minutes 10x 2, 10x respectively Sitting Exercises Ankle IV Sitting Exercise Name Ankle IV (planting leg behind active leg) Side right Equipment Used Lev 2 TB, band around arch Reps/Minutes 10x 3 Ankle EV Sitting Exercise Name Ankle EV Side right Equipment Used Lev 2 TB, band around arch region Reps/Minutes 10x 3 Ankle DF Sitting Exercise Name Active DF (bilateral) & with TB (right) Side right Equipment Used Lev 2 TB, band around arch Reps/Minutes 10 x 2 Standing Exercises Step up/down Standing Exercise Name Step ups fwd and bkwd ( comparison with normal L side) Side bilateral Reps/Minutes 7' Comments V cuing needed sit to stands Standing Exercise Name R leg sit to stand Reps/Minutes 10x 3 Self-Care/Home Management Treatment Education Patient Education Body Mechanics Other Education Discussed proper body mechanics for home activities (raking of leaves, gardening), reviewed posturing positions and discusssed althernative. Activities Self-Care/Home Management Activities Issued & reviewed HEP: Single leg (R) sit to stands. PT-OP-R Modalities Start: 07/01/20 18:23 Freq: Status: Active Protocol: Document 08/01/20 09:00 DLM (Rec: 08/01/20 11:12 DLM [id number]) Electric Stimulation Electric Stimulation Interferential Current (IFC) Body Location lumbosacral Duration (Minutes) 15 Intensity 8 Target/Sweep Sweep Patient Position Hooklying Combined With Heat/Cold Hot Pack Comments Decreased pain reported with treatment, medication patch removed before IFC PT-OP-T Assessment and Plan Start: 07/01/20 18:23 Freq: Status: Active Protocol: Document 08/23/20 09:06 LRN (Rec: 08/23/20 09:52 LRN [id number]) Physical Therapy Assessment Goals Three Impairment Dec'd core strength (not able to maintain core stability w/ LE resistance) Short Term Goal (STG) Pt will be educated in core stabilization program. STG Duration 08/08/20 (07/18/20: Initiated & progressing) Human Services Instructor Goal (LTG) Pt will be able to maintain core stability with resistance to the LE's resulting in decreased pain complaints with hiking/walking. (08/16/20: Core moderate to mildly stabilized with R LE resistance to flex, stabilized with LLE resistance to flex). LTG Duration 10/09/20 (08/16/20: Improving) Two Impairment Decreased R LE strength Short Term Goal (STG) Increase R LE strength with pt able to SLS with confidence for no less than 30 secs. (08/16/20: R: 4 sec, L: 2 secs) STG Duration 09/10/19 Nursing Home Goal (LTG) R LE strength of 5/5 with pt able to ambulate stairs with an alternating gait without fear of falling. (08/23/20: Pt feels comfortable going down steps with railing) LTG Duration 10/09/20 (08/23/20: Improving ) One Impairment Pt lacks appropriate self care HEP Human Services Instructor Goal (LTG) Pt will be independent in a self care HEP of flexibility and strengthening exercises. LTG Duration 10/09/20 (08/18/20: Progressing) Assessment Summary Assessment Weakness in R LE most noticeable with step downs and single leg sit to stands. Physical Therapy Plan Frequency and Duration Frequency of Treatment 2x/Week Duration of Treatment 3 months Plan of Care Start Date 07/11/20 Plan of Care End Date 10/09/20 Next Visit Focus/Plan Next Note Type Treatment Note Next Visit Plan Add STM to anterior RLE/foot ( to normalize sensation) & R lateral border of sacrum ( after core stab on TM). Progress onto core stab program HEP & continue to work on ability to squat for retrieving objects from floor, progress tolerance on Shuttle recovery ex to improve squat ability. Focus on normalizing R lower leg sensation & improving core/R LE strengthening to improve function and progress towards pt goal of being able to go long distance hiking. Balance training & ex (ankles) IFC only as needed for pain or to improve mobility of L/S.
--- NOTE | 2020-08-25 09:49 | PT.OTN ---
Current Diagnoses Intervertebral disc disorders with radiculopathy, lumbar region (08/25/20) Physical Therapy Treatment Note PT-OP-A Visit Information Start: 07/01/20 18:23 Freq: Status: Active Protocol: Document 08/25/20 09:04 LRN (Rec: 08/25/20 09:47 LRN [id number]) Out-Patient Physical Therapy Visit Information Visit Information Visit Type Treatment Note Visit Note 3 visits after PN Visit Start Time 09:04 Visit Stop Time 09:45 Total Visit Minutes 41 Visit Number 13 Evaluation Information Evaluation Date 07/11/20 Precautions Precautions Fall history due to current condition. PT-OP-B Current Condition Start: 07/01/20 18:23 Freq: Status: Active Protocol: Document 07/11/20 11:24 LRN (Rec: 07/11/20 12:28 LRN [id number]) Current Condition History of Current Condition Onset Date May 25, 2020. Current Complaints R leg numbness and weakness. History of Current Condition Pt reports numbness and a tired feeling in the R leg. States she went hiking the other day and felt she was incapable of normal walking. States she used to stand on one leg with the other up on a counter to shave her legs, but now when trying to stand on R leg, her leg gives out. States she has fallen several times to the ground due to the RLE giving out. When having pain: Aches in groin anteriorly to ankle of RLE. A week after injury she saw a chiropractor friend and was referred to Dr. Vega who suggested an injection. She deferred and instead went to see her spouse's neurosurgeon (Dr. Francisco Lora) and was given a referral by his social research assistant PRAVEEN Edward at [facility]. Prior Treatments and Tests MRI @ [facility] indicates trace degenerative retrolisthesis of L4 on L5 and L3 onL4. Disc Bulge: T12-L1 Moderate diffuse, L1-L2 Minimal, L2-L3 Mild, L3-L4 Large free disc fragment that migrated superior to the disc space, eccentric to the right at L3-L4 impinging on the R L3 nerve root and posteriorly deviates the right L4 nerve root and moderate diffuse disc bulge and moderate to severe canal stenosis. Mild rod foraminal narrowing. L4-L5: Moderate to severe disc height loss, chronic & disc protrusion deviating the left L5 nerve root posteriorly. L5 vertebral body is partially sacralized. Future Testing and Treatments Planned Will follow up with Dr. Mcqueen the first of August. Developmental History Developmental History Pt states she herniated 2 discs, L4-5 or L3-4 when reached over and lifted something heavy with the R hand resulting in numbness in the R lateral thigh to anterior lower leg (lower leg is most painful). Initially pain was at groin and in front of the anterior leg. A week ago was stepping down from a chair and the R leg wouldn't hold her. Treatment Goals Patient/Caregiver Goals Pt goal: to stretch and be careful to develop strength in the R leg and core, and to regain strength and eliminate numbness of the R leg. Prior Functional Status Baseline Function- ADL's Independent Baseline Function- Mobility Independent Baseline Function- Gait Able to slow jog/fast walk, up to the neighbors when in a hurry, can't now. 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 Baseline Function- Recreation/Hobbies Hiked trails a couple miles a couple days a week. Current Functional Impairments (Reported) Functional Limitations- ADL's Not able to lift objects. Not able to slow jog/fast walk to neighbors house. Limited in descending stairs, steps, hiking due to RLE weakness. Functional Limitations- Work/School Gets up every hour to walk 500 + steps. R LE is numb but begins to hurt as the day goes on. 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 PT-OP-C Subjective Start: 07/01/20 18:23 Freq: Status: Active Protocol: Document 08/25/20 09:04 LRN (Rec: 08/25/20 09:47 LRN [id number]) OP-PT Subjective Patient Comments Patient Comments Sore back, wearing a patch. PT-OP-E Functional Tests Start: 07/01/20 18:23 Freq: Status: Active Protocol: Document 08/16/20 10:40 LRN (Rec: 08/16/20 11:22 LRN [id number]) Functional Tests Other SLS Name of Test Single Leg Stance Score L 2 sec, R 4 sec. Comment Pt is R-handed dominant. PT-OP-G Mobility & Gait Start: 07/01/20 18:23 Freq: Status: Active Protocol: Document 08/16/20 10:40 LRN (Rec: 08/16/20 11:22 LRN [id number]) Stair Climbing Evaluation Evaluation Level of Assist On Stairs Independent Devices Stair Climbing Assistive Devices None Technique/Endurance Stair Climbing Direction Ascend and Descend Stair Climbing Technique Step Over Step Number of Steps Climbed 4 Stair Climbing Set # Repetitions (reps) 2 Comments Stair Climbing Comments Mild weakness noted with descending (ECC contraction on RLE). PT-OP-H Neuro Start: 07/01/20 18:23 Freq: Status: Active Protocol: Document 07/11/20 11:24 LRN (Rec: 07/11/20 12:28 LRN [id number]) Sensation Evaluation Gross Sensation Gross Sensation Right LE Impaired Sensation Description Numbness Dermatome Impairments L2,L3,L4 Deep Tendon Reflex & Clonus Assessment Deep Tendon Reflex Right Achilles Deep Tendon Reflex 1+ Diminished Right Patellar Deep Tendon Reflex 2+ Normal PT-OP-J Posture/Palpation/Skin Start: 07/01/20 18:23 Freq: Status: Active Protocol: Document 07/11/20 11:24 LRN (Rec: 07/11/20 12:28 LRN [id number]) Posture Evaluation Comments Posture Comments Mild forward head. Increased lumbar lordosis. R shoulder depressed, R hip elevated. C-curve lower thoracic to sacrum with apex on left. Palpation Assessment Location Lumbar Spine Palpation Location PA glide Spinous process L4-L5 Palpation Findings Tenderness Palpation Details Pt denies tenderness at R Lumbar Transverse processes and facets joints with PA pressure. Low back Palpation Location Lumbar paraspinals Palpation Findings Soft Tissue Tightness,Muscle Guarding Palpation Details Right worse than left. PT-OP-K Range of Motion Start: 07/01/20 18:23 Freq: Status: Active Protocol: Document 07/11/20 11:24 LRN (Rec: 07/11/20 18:48 LRN [id number]) Lumbar Spine Range of Motion Lumbar Spine Active Degrees Testing Position Standing Flexion 35 Extension 14 Rotation Left 45 Rotation Right 20 Lateral Flexion Left 15 Lateral Flexion Right 10 Hip Goniometric Range of Motion Hip Left Passive Testing Position Supine Straight Leg Raise 50 Abduction 35 Internal Rotation 30 External Rotation 70 Comments Active SLR was 50 deg's. Right Passive Testing Position Supine Straight Leg Raise 40 Abduction 30 Internal Rotation 35 External Rotation 55 Comments Active SLR was 30 deg's. PT-OP-L Special Tests Start: 07/01/20 18:23 Freq: Status: Active Protocol: Document 07/11/20 11:24 LRN (Rec: 07/11/20 18:48 LRN [id number]) Special Tests Lumbar Spine Special Tests Vertical Spine Loading Test Results - Comments No change in R LE symptoms Straight Leg Raise Test Results + right Comments Hamstring tightness report bilaterally Manual Traction Test Results - Comments No change in R LE symptoms PT-OP-M Strength Start: 07/01/20 18:23 Freq: Status: Active Protocol: Document 08/16/20 10:40 LRN (Rec: 08/16/20 11:22 LRN [id number]) Hip Strength Hip Manual Muscle Testing Left Flexion (L2) 5 Normal Right Flexion (L2) 3+ Fair+ PT-OP-Q Treatments Start: 07/01/20 18:23 Freq: Status: Active Protocol: Document 08/25/20 09:04 LRN (Rec: 08/25/20 09:47 LRN [id number]) Therapeutic Exercises Standing Exercises Heel raises in 3 positions Standing Exercise Name Heel raises: Toes fwd, inward, outward Reps/Minutes 10x each Step up/down Standing Exercise Name Step ups fwd and bkwd ( comparison with normal L side) Side bilateral Reps/Minutes 7' Comments V cuing needed sit to stands Standing Exercise Name R leg sit to stand Reps/Minutes 10x 3 Comments Extra time for pt to take notes Manual Therapy Treatment Soft Tissue Mobilization R Lower Leg Body Location R Lower Leg Mobilization Type Strumming Intensity/Depth Superficial Body Position Supine Manual Traction Lumbar Details lumbar traction Body Position Supine Reps/Duration 5' Comments 1' set up Self-Care/Home Management Treatment Education Patient Education Body Mechanics Other Education Educated pt in moving of heavy objects with an assistive device (juan) and body mechanics for moving, vs discussed without juan. PT-OP-R Modalities Start: 07/01/20 18:23 Freq: Status: Active Protocol: Document 08/01/20 09:00 DLM (Rec: 08/01/20 11:12 DLM [id number]) Electric Stimulation Electric Stimulation Interferential Current (IFC) Body Location lumbosacral Duration (Minutes) 15 Intensity 8 Target/Sweep Sweep Patient Position Hooklying Combined With Heat/Cold Hot Pack Comments Decreased pain reported with treatment, medication patch removed before IFC PT-OP-T Assessment and Plan Start: 07/01/20 18:23 Freq: Status: Active Protocol: Document 08/25/20 09:04 LRN (Rec: 08/25/20 09:47 LRN [id number]) Physical Therapy Assessment Goals Three Impairment Dec'd core strength (not able to maintain core stability w/ LE resistance) Short Term Goal (STG) Pt will be educated in core stabilization program. STG Duration 08/08/20 (07/18/20: Initiated & progressing) [facility]iary Goal (LTG) Pt will be able to maintain core stability with resistance to the LE's resulting in decreased pain complaints with hiking/walking. (08/16/20: Core moderate to mildly stabilized with R LE resistance to flex, stabilized with LLE resistance to flex). LTG Duration 10/09/20 (08/16/20: Improving) Two Impairment Decreased R LE strength Short Term Goal (STG) Increase R LE strength with pt able to SLS with confidence for no less than 30 secs. (08/16/20: R: 4 sec, L: 2 secs) STG Duration 09/10/19 [facility]itentiary Goal (LTG) R LE strength of 5/5 with pt able to ambulate stairs with an alternating gait without fear of falling. (08/23/20: Pt feels comfortable going down steps with railing) LTG Duration 10/09/20 (08/23/20: Improving ) One Impairment Pt lacks appropriate self care HEP Penitentiary Goal (LTG) Pt will be independent in a self care HEP of flexibility and strengthening exercises. LTG Duration 10/09/20 (08/18/20: Progressing) Progress Towards Goals Progress Comments See below. Assessment Summary Assessment Lumbar traction decreased LBP. STM appeared helpful with pt feeling like she had improved feeling in the lower leg. Pt ankle DF strength in supine was 5/5. Physical Therapy Plan Frequency and Duration Frequency of Treatment 2x/Week Duration of Treatment 3 months Plan of Care Start Date 07/11/20 Plan of Care End Date 10/09/20 Next Visit Focus/Plan Next Note Type Treatment Note Next Visit Plan Assess resonse to STM to anterior RLE/foot (to normalize sensation), add STM to R lateral border of sacrum (after core stab ex). Progress onto core stab program HEP & continue to work on ability to squat for retrieving objects from floor, progress tolerance on Shuttle recovery ex to improve squat ability. Focus on normalizing R lower leg sensation & improving core/R LE strengthening to improve function and progress towards pt goal of being able to go long distance hiking. Balance training & ex (ankles) IFC only as needed for pain or to improve mobility of L/S.
--- NOTE | 2020-08-30 15:58 | PT.OTN ---
Current Diagnoses Intervertebral disc disorders with radiculopathy, lumbar region (08/30/20) Physical Therapy Treatment Note PT-OP-A Visit Information Start: 07/01/20 18:23 Freq: Status: Active Protocol: Document 08/30/20 15:03 LRN (Rec: 08/30/20 15:57 LRN [id number]) Out-Patient Physical Therapy Visit Information Visit Information Visit Type Treatment Note Visit Start Time 15:07 Visit Stop Time 15:47 Total Visit Minutes 40 Visit Number 14 Evaluation Information Evaluation Date 07/11/20 Precautions Precautions Fall history due to current condition. PT-OP-B Current Condition Start: 07/01/20 18:23 Freq: Status: Active Protocol: Document 07/11/20 11:24 LRN (Rec: 07/11/20 12:28 LRN [id number]) Current Condition History of Current Condition Onset Date May 25, 2020. Current Complaints R leg numbness and weakness. History of Current Condition Pt reports numbness and a tired feeling in the R leg. States she went hiking the other day and felt she was incapable of normal walking. States she used to stand on one leg with the other up on a counter to shave her legs, but now when trying to stand on R leg, her leg gives out. States she has fallen several times to the ground due to the RLE giving out. When having pain: Aches in groin anteriorly to ankle of RLE. A week after injury she saw a chiropractor friend and was referred to Dr. Vega who suggested an injection. She deferred and instead went to see her spouse's neurosurgeon (Dr. Francisco Lora) and was given a referral by his library technical assistant PRAVEEN Edward at [facility]. Prior Treatments and Tests MRI @ [facility] indicates trace degenerative retrolisthesis of L4 on L5 and L3 onL4. Disc Bulge: T12-L1 Moderate diffuse, L1-L2 Minimal, L2-L3 Mild, L3-L4 Large free disc fragment that migrated superior to the disc space, eccentric to the right at L3-L4 impinging on the R L3 nerve root and posteriorly deviates the right L4 nerve root and moderate diffuse disc bulge and moderate to severe canal stenosis. Mild rod foraminal narrowing. L4-L5: Moderate to severe disc height loss, chronic & disc protrusion deviating the left L5 nerve root posteriorly. L5 vertebral body is partially sacralized. Future Testing and Treatments Planned Will follow up with Dr. Mcqueen the first of August. Developmental History Developmental History Pt states she herniated 2 discs, L4-5 or L3-4 when reached over and lifted something heavy with the R hand resulting in numbness in the R lateral thigh to anterior lower leg (lower leg is most painful). Initially pain was at groin and in front of the anterior leg. A week ago was stepping down from a chair and the R leg wouldn't hold her. Treatment Goals Patient/Caregiver Goals Pt goal: to stretch and be careful to develop strength in the R leg and core, and to regain strength and eliminate numbness of the R leg. Prior Functional Status Baseline Function- ADL's Independent Baseline Function- Mobility Independent Baseline Function- Gait Able to slow jog/fast walk, up to the neighbors when in a hurry, can't now. 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 Baseline Function- Recreation/Hobbies Hiked trails a couple miles a couple days a week. Current Functional Impairments (Reported) Functional Limitations- ADL's Not able to lift objects. Not able to slow jog/fast walk to neighbors house. Limited in descending stairs, steps, hiking due to RLE weakness. Functional Limitations- Work/School Gets up every hour to walk 500 + steps. R LE is numb but begins to hurt as the day goes on. 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 PT-OP-C Subjective Start: 07/01/20 18:23 Freq: Status: Active Protocol: Document 08/30/20 15:03 LRN (Rec: 08/30/20 15:57 LRN [id number]) OP-PT Subjective Patient Comments Patient Comments Requests IFC to end. States she did gardening this past weekend (2 days ago), so she has had intermittent back pain . Numbness sensation was reduced after STM for 2 days and was able to squat better. PT-OP-E Functional Tests Start: 07/01/20 18:23 Freq: Status: Active Protocol: Document 08/16/20 10:40 LRN (Rec: 01/05/21 11:22 LRN [id number]) Functional Tests Other SLS Name of Test Single Leg Stance Score L 2 sec, R 4 sec. Comment Pt is R-handed dominant. PT-OP-G Mobility & Gait Start: 07/01/20 18:23 Freq: Status: Active Protocol: Document 08/16/20 10:40 LRN (Rec: 08/16/20 11:22 LRN [id number]) Stair Climbing Evaluation Evaluation Level of Assist On Stairs Independent Devices Stair Climbing Assistive Devices None Technique/Endurance Stair Climbing Direction Ascend and Descend Stair Climbing Technique Step Over Step Number of Steps Climbed 4 Stair Climbing Set # Repetitions (reps) 2 Comments Stair Climbing Comments Mild weakness noted with descending (ECC contraction on RLE). PT-OP-H Neuro Start: 07/01/20 18:23 Freq: Status: Active Protocol: Document 07/11/20 11:24 LRN (Rec: 07/11/20 12:28 LRN [id number]) Sensation Evaluation Gross Sensation Gross Sensation Right LE Impaired Sensation Description Numbness Dermatome Impairments L2,L3,L4 Deep Tendon Reflex & Clonus Assessment Deep Tendon Reflex Right Achilles Deep Tendon Reflex 1+ Diminished Right Patellar Deep Tendon Reflex 2+ Normal PT-OP-J Posture/Palpation/Skin Start: 07/01/20 18:23 Freq: Status: Active Protocol: Document 07/11/20 11:24 LRN (Rec: 07/11/20 12:28 LRN [id number]) Posture Evaluation Comments Posture Comments Mild forward head. Increased lumbar lordosis. R shoulder depressed, R hip elevated. C-curve lower thoracic to sacrum with apex on left. Palpation Assessment Location Lumbar Spine Palpation Location PA glide Spinous process L4-L5 Palpation Findings Tenderness Palpation Details Pt denies tenderness at R Lumbar Transverse processes and facets joints with PA pressure. Low back Palpation Location Lumbar paraspinals Palpation Findings Soft Tissue Tightness,Muscle Guarding Palpation Details Right worse than left. PT-OP-K Range of Motion Start: 07/01/20 18:23 Freq: Status: Active Protocol: Document 07/11/20 11:24 LRN (Rec: 07/11/20 18:48 LRN [id number]) Lumbar Spine Range of Motion Lumbar Spine Active Degrees Testing Position Standing Flexion 35 Extension 14 Rotation Left 45 Rotation Right 20 Lateral Flexion Left 15 Lateral Flexion Right 10 Hip Goniometric Range of Motion Hip Left Passive Testing Position Supine Straight Leg Raise 50 Abduction 35 Internal Rotation 30 External Rotation 70 Comments Active SLR was 50 deg's. Right Passive Testing Position Supine Straight Leg Raise 40 Abduction 30 Internal Rotation 35 External Rotation 55 Comments Active SLR was 30 deg's. PT-OP-L Special Tests Start: 07/01/20 18:23 Freq: Status: Active Protocol: Document 07/11/20 11:24 LRN (Rec: 07/11/20 18:48 LRN [id number]) Special Tests Lumbar Spine Special Tests Vertical Spine Loading Test Results - Comments No change in R LE symptoms Straight Leg Raise Test Results + right Comments Hamstring tightness report bilaterally Manual Traction Test Results - Comments No change in R LE symptoms PT-OP-M Strength Start: 07/01/20 18:23 Freq: Status: Active Protocol: Document 08/16/20 10:40 LRN (Rec: 08/16/20 11:22 LRN [id number]) Hip Strength Hip Manual Muscle Testing Left Flexion (L2) 5 Normal Right Flexion (L2) 3+ Fair+ PT-OP-Q Treatments Start: 07/01/20 18:23 Freq: Status: Active Protocol: Document 08/30/20 15:03 LRN (Rec: 08/30/20 15:57 LRN [id number]) Therapeutic Exercises Sitting Exercises R hip ER AAROM after stretch Sitting Exercise Name AAROM for R hip ER after stretching Side right Equipment Used belt Reps/Minutes 2' R hip ER stretch Sitting Exercise Name RLE on plinth and crossing knee over ankle Side right Reps/Minutes 6' Comments Extra time for training. Standing Exercises Step up/down Standing Exercise Name Step ups fwd and bkwd ( comparison with normal L side) Side bilateral Reps/Minutes 7' (10x 3 each) Comments V cuing needed sit to stands Standing Exercise Name R leg sit to stand Reps/Minutes 15x Self-Care/Home Management Treatment Education Patient Education Body Mechanics Other Education Reviewed proper body mechanics for gardening. Activities Self-Care/Home Management Activities Issued & reviewed contrast bath home program for R foot to improve sensation. PT-OP-R Modalities Start: 07/01/20 18:23 Freq: Status: Active Protocol: Document 08/01/20 09:00 DLM (Rec: 08/01/20 11:12 DLM [id number]) Electric Stimulation Electric Stimulation Interferential Current (IFC) Body Location lumbosacral Duration (Minutes) 15 Intensity 8 Target/Sweep Sweep Patient Position Hooklying Combined With Heat/Cold Hot Pack Comments Decreased pain reported with treatment, medication patch removed before IFC PT-OP-T Assessment and Plan Start: 07/01/20 18:23 Freq: Status: Active Protocol: Document 08/30/20 15:03 LRN (Rec: 08/30/20 15:57 LRN [id number]) Physical Therapy Assessment Goals Three Impairment Dec'd core strength (not able to maintain core stability w/ LE resistance) Short Term Goal (STG) Pt will be educated in core stabilization program. STG Duration 08/08/20 (07/18/20: Initiated & progressing) Nursing Home Goal (LTG) Pt will be able to maintain core stability with resistance to the LE's resulting in decreased pain complaints with hiking/walking. (08/16/20: Core moderate to mildly stabilized with R LE resistance to flex, stabilized with LLE resistance to flex). LTG Duration 10/09/20 (08/16/20: Improving) Two Impairment Decreased R LE strength Short Term Goal (STG) Increase R LE strength with pt able to SLS with confidence for no less than 30 secs. (08/16/20: R: 4 sec, L: 2 secs) STG Duration 09/10/19 Collection Systems Foreman Goal (LTG) R LE strength of 5/5 with pt able to ambulate stairs with an alternating gait without fear of falling. (08/23/20: Pt feels comfortable going down steps with railing) LTG Duration 10/09/20 (08/23/20: Improving ) One Impairment Pt lacks appropriate self care HEP Nursing Home Goal (LTG) Pt will be independent in a self care HEP of flexibility and strengthening exercises. LTG Duration 10/09/20 (08/18/20: Progressing) Progress Towards Goals Progress Comments R Lower leg decrease in sensation to start, improved sensation after STM to almost normal, top of foot very minimal change. Assessment Summary Assessment + response to STM with improved sensation in R lower leg and foot for ~2 days. Pt mildly flared after gardening 3 days ago with some return of numbing feeling and intermittent LBP. Physical Therapy Plan Next Visit Focus/Plan Next Note Type Treatment Note Next Visit Plan Manual lumbar traction after warm up exercises and assess need for IFES; STM to R lateral border of sacrum ( after core stab ex), and anterior RLE/foot (to normalize sensation). Progress onto core stab program HEP & continue to work on ability to squat for retrieving objects from floor, progress tolerance on Shuttle recovery ex to improve squat ability. Focus on normalizing R lower leg sensation & improving core/R LE strengthening to improve function and progress towards pt goal of being able to go long distance hiking. Balance training & ex (ankles) IFC only as needed for pain or to improve mobility of L/S.
--- NOTE | 2020-09-01 14:04 | PT.OTN ---
Current Diagnoses Intervertebral disc disorders with radiculopathy, lumbar region (09/01/20) Physical Therapy Treatment Note PT-OP-A Visit Information Start: 07/01/20 18:23 Freq: Status: Active Protocol: Document 09/01/20 09:04 LRN (Rec: 09/01/20 09:48 LRN [id number]) Out-Patient Physical Therapy Visit Information Visit Information Visit Type Treatment Note Visit Start Time 09:04 Visit Stop Time 09:50 Total Visit Minutes 46 Visit Number 15 Evaluation Information Evaluation Date 07/11/20 Precautions Precautions Fall history due to current condition. PT-OP-B Current Condition Start: 07/01/20 18:23 Freq: Status: Active Protocol: Document 07/11/20 11:24 LRN (Rec: 07/11/20 12:28 LRN [id number]) Current Condition History of Current Condition Onset Date May 25, 2020. Current Complaints R leg numbness and weakness. History of Current Condition Pt reports numbness and a tired feeling in the R leg. States she went hiking the other day and felt she was incapable of normal walking. States she used to stand on one leg with the other up on a counter to shave her legs, but now when trying to stand on R leg, her leg gives out. States she has fallen several times to the ground due to the RLE giving out. When having pain: Aches in groin anteriorly to ankle of RLE. A week after injury she saw a chiropractor friend and was referred to Dr. Vega who suggested an injection. She deferred and instead went to see her spouse's neurosurgeon (Dr. Francisco Lora) and was given a referral by his assistant case manager PRAVEEN Edward at [facility]. Prior Treatments and Tests MRI @ [facility] indicates trace degenerative retrolisthesis of L4 on L5 and L3 onL4. Disc Bulge: T12-L1 Moderate diffuse, L1-L2 Minimal, L2-L3 Mild, L3-L4 Large free disc fragment that migrated superior to the disc space, eccentric to the right at L3-L4 impinging on the R L3 nerve root and posteriorly deviates the right L4 nerve root and moderate diffuse disc bulge and moderate to severe canal stenosis. Mild rod foraminal narrowing. L4-L5: Moderate to severe disc height loss, chronic & disc protrusion deviating the left L5 nerve root posteriorly. L5 vertebral body is partially sacralized. Future Testing and Treatments Planned Will follow up with Dr. Mcqueen the first of August. Developmental History Developmental History Pt states she herniated 2 discs, L4-5 or L3-4 when reached over and lifted something heavy with the R hand resulting in numbness in the R lateral thigh to anterior lower leg (lower leg is most painful). Initially pain was at groin and in front of the anterior leg. A week ago was stepping down from a chair and the R leg wouldn't hold her. Treatment Goals Patient/Caregiver Goals Pt goal: to stretch and be careful to develop strength in the R leg and core, and to regain strength and eliminate numbness of the R leg. Prior Functional Status Baseline Function- ADL's Independent Baseline Function- Mobility Independent Baseline Function- Gait Able to slow jog/fast walk, up to the neighbors when in a hurry, can't now. 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 Baseline Function- Recreation/Hobbies Hiked trails a couple miles a couple days a week. Current Functional Impairments (Reported) Functional Limitations- ADL's Not able to lift objects. Not able to slow jog/fast walk to neighbors house. Limited in descending stairs, steps, hiking due to RLE weakness. Functional Limitations- Work/School Gets up every hour to walk 500 + steps. R LE is numb but begins to hurt as the day goes on. 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 PT-OP-C Subjective Start: 07/01/20 18:23 Freq: Status: Active Protocol: Document 09/01/20 09:04 LRN (Rec: 09/01/20 09:48 LRN [id number]) OP-PT Subjective Patient Comments Patient Comments R LBP, a little numbness in front of lower leg and none in thigh. States she did not do the contrast bath treatment but will do it over the weekend. PT-OP-E Functional Tests Start: 07/01/20 18:23 Freq: Status: Active Protocol: Document 08/16/20 10:40 LRN (Rec: 08/16/20 11:22 LRN [id number]) Functional Tests Other SLS Name of Test Single Leg Stance Score L 2 sec, R 4 sec. Comment Pt is R-handed dominant. PT-OP-G Mobility & Gait Start: 07/01/20 18:23 Freq: Status: Active Protocol: Document 08/16/20 10:40 LRN (Rec: 08/16/20 11:22 LRN [id number]) Stair Climbing Evaluation Evaluation Level of Assist On Stairs Independent Devices Stair Climbing Assistive Devices None Technique/Endurance Stair Climbing Direction Ascend and Descend Stair Climbing Technique Step Over Step Number of Steps Climbed 4 Stair Climbing Set # Repetitions (reps) 2 Comments Stair Climbing Comments Mild weakness noted with descending (ECC contraction on RLE). PT-OP-H Neuro Start: 07/01/20 18:23 Freq: Status: Active Protocol: Document 07/11/20 11:24 LRN (Rec: 07/11/20 12:28 LRN [id number]) Sensation Evaluation Gross Sensation Gross Sensation Right LE Impaired Sensation Description Numbness Dermatome Impairments L2,L3,L4 Deep Tendon Reflex & Clonus Assessment Deep Tendon Reflex Right Achilles Deep Tendon Reflex 1+ Diminished Right Patellar Deep Tendon Reflex 2+ Normal PT-OP-J Posture/Palpation/Skin Start: 07/01/20 18:23 Freq: Status: Active Protocol: Document 07/11/20 11:24 LRN (Rec: 07/11/20 12:28 LRN [id number]) Posture Evaluation Comments Posture Comments Mild forward head. Increased lumbar lordosis. R shoulder depressed, R hip elevated. C-curve lower thoracic to sacrum with apex on left. Palpation Assessment Location Lumbar Spine Palpation Location PA glide Spinous process L4-L5 Palpation Findings Tenderness Palpation Details Pt denies tenderness at R Lumbar Transverse processes and facets joints with PA pressure. Low back Palpation Location Lumbar paraspinals Palpation Findings Soft Tissue Tightness,Muscle Guarding Palpation Details Right worse than left. PT-OP-K Range of Motion Start: 07/01/20 18:23 Freq: Status: Active Protocol: Document 07/11/20 11:24 LRN (Rec: 07/11/20 18:48 LRN [id number]) Lumbar Spine Range of Motion Lumbar Spine Active Degrees Testing Position Standing Flexion 35 Extension 14 Rotation Left 45 Rotation Right 20 Lateral Flexion Left 15 Lateral Flexion Right 10 Hip Goniometric Range of Motion Hip Left Passive Testing Position Supine Straight Leg Raise 50 Abduction 35 Internal Rotation 30 External Rotation 70 Comments Active SLR was 50 deg's. Right Passive Testing Position Supine Straight Leg Raise 40 Abduction 30 Internal Rotation 35 External Rotation 55 Comments Active SLR was 30 deg's. PT-OP-L Special Tests Start: 07/01/20 18:23 Freq: Status: Active Protocol: Document 07/11/20 11:24 LRN (Rec: 07/11/20 18:48 LRN [id number]) Special Tests Lumbar Spine Special Tests Vertical Spine Loading Test Results - Comments No change in R LE symptoms Straight Leg Raise Test Results + right Comments Hamstring tightness report bilaterally Manual Traction Test Results - Comments No change in R LE symptoms PT-OP-M Strength Start: 07/01/20 18:23 Freq: Status: Active Protocol: Document 08/16/20 10:40 LRN (Rec: 08/16/20 11:22 LRN [id number]) Hip Strength Hip Manual Muscle Testing Left Flexion (L2) 5 Normal Right Flexion (L2) 3+ Fair+ PT-OP-Q Treatments Start: 07/01/20 18:23 Freq: Status: Active Protocol: Document 09/01/20 09:04 LRN (Rec: 09/01/20 09:48 LRN [id number]) Therapeutic Exercises Supine Exercises Hamsting stretch Supine Exercise Name Hamstring/LE neural stretch Side right Reps/Minutes 2' Comments Extra time for training Sidelying Exercises Hip AB Sidelying Exercise Name Hip AB/Core stab Side right Reps/Minutes 10x Standing Exercises Heel raises in 3 positions Standing Exercise Name Heel raises: Toes fwd, inward, outward Reps/Minutes 10x each Step up/down Standing Exercise Name Step ups fwd and bkwd ( comparison with normal L side) Side bilateral Reps/Minutes 10' (10x 3 each and each direction) Comments V cuing needed Manual Therapy Treatment Soft Tissue Mobilization R Lower Leg Body Location R Lower Leg/R foot Mobilization Type Strumming Intensity/Depth Superficial Body Position Supine Manual Traction Lumbar Details lumbar traction Body Position Supine Reps/Duration 5' Comments 1' set up Self-Care/Home Management Treatment Education Patient Education Home Exercise Program Activities Self-Care/Home Management Activities Issued & reviewed HEP: LE Hamstring/neural stretch. PT-OP-R Modalities Start: 07/01/20 18:23 Freq: Status: Active Protocol: Document 08/01/20 09:00 DLM (Rec: 08/01/20 11:12 DLM [id number]) Electric Stimulation Electric Stimulation Interferential Current (IFC) Body Location lumbosacral Duration (Minutes) 15 Intensity 8 Target/Sweep Sweep Patient Position Hooklying Combined With Heat/Cold Hot Pack Comments Decreased pain reported with treatment, medication patch removed before IFC PT-OP-T Assessment and Plan Start: 07/01/20 18:23 Freq: Status: Active Protocol: Document 09/01/20 09:04 LRN (Rec: 09/01/20 09:48 LRN [id number]) Physical Therapy Assessment Goals Three Impairment Dec'd core strength (not able to maintain core stability w/ LE resistance) Short Term Goal (STG) Pt will be educated in core stabilization program. STG Duration 08/08/20 (07/18/20: Initiated & progressing) Senior Living Goal (LTG) Pt will be able to maintain core stability with resistance to the LE's resulting in decreased pain complaints with hiking/walking. (08/16/20: Core moderate to mildly stabilized with R LE resistance to flex, stabilized with LLE resistance to flex). LTG Duration 10/09/20 (08/16/20: Improving) Two Impairment Decreased R LE strength Short Term Goal (STG) Increase R LE strength with pt able to SLS with confidence for no less than 30 secs. (08/16/20: R: 4 sec, L: 2 secs) STG Duration 09/10/19 Computer Programmer Analyst Goal (LTG) R LE strength of 5/5 with pt able to ambulate stairs with an alternating gait without fear of falling. (08/23/20: Pt feels comfortable going down steps with railing) LTG Duration 10/09/20 (08/23/20: Improving ) One Impairment Pt lacks appropriate self care HEP Senior Living Goal (LTG) Pt will be independent in a self care HEP of flexibility and strengthening exercises. LTG Duration 10/09/20 (09/01/20: Progressing) Assessment Summary Assessment R LE endurance improving with pt able to tolerate 30 reps of step ups/down on both sides without resting. Physical Therapy Plan Frequency and Duration Frequency of Treatment 2x/Week Duration of Treatment 3 months Plan of Care Start Date 07/11/20 Plan of Care End Date 10/09/20 Next Visit Focus/Plan Next Note Type Treatment Note Next Visit Plan Review hamstring/LE neural stretch. Assess core strength & safety with stairs (progess of goals 2,3). As needed Manual lumbar traction after ex: shuttle recovery, LE (sit to stand), squat exercises, DLS, and assess need for IFES; STM to R lateral border of sacrum (after core stab ex), and anterior RLE/foot (to normalize sensation). Progress onto core stab program HEP & continue to work on ability to squat for retrieving objects from floor. Focus on normalizing R lower leg sensation & improving core/R LE strengthening to improve function and progress towards pt goal of being able to go long distance hiking. Balance training & ex (ankles) IFC only as needed for pain or to improve mobility of L/S. Consider improving tolerance TM at angles.
--- NOTE | 2020-09-08 09:21 | PT-OP ANOTE ---
DNS, message left reminding pt of next scheduled visit.
--- NOTE | 2020-09-15 10:18 | PT.OTN ---
Current Diagnoses Intervertebral disc disorders with radiculopathy, lumbar region (09/15/20) Physical Therapy Treatment Note PT-OP-A Visit Information Start: 07/01/20 18:23 Freq: Status: Active Protocol: Document 09/15/20 09:07 LRN (Rec: 09/15/20 10:17 LRN [id number]) Out-Patient Physical Therapy Visit Information Visit Information Visit Type Treatment Note Visit Start Time 09:07 Visit Stop Time 10:05 Total Visit Minutes 58 Visit Number 16 Evaluation Information Evaluation Date 07/11/20 Precautions Precautions Fall history due to current condition. PT-OP-B Current Condition Start: 07/01/20 18:23 Freq: Status: Active Protocol: Document 07/11/20 11:24 LRN (Rec: 07/11/20 12:28 LRN [id number]) Current Condition History of Current Condition Onset Date May 25, 2020. Current Complaints R leg numbness and weakness. History of Current Condition Pt reports numbness and a tired feeling in the R leg. States she went hiking the other day and felt she was incapable of normal walking. States she used to stand on one leg with the other up on a counter to shave her legs, but now when trying to stand on R leg, her leg gives out. States she has fallen several times to the ground due to the RLE giving out. When having pain: Aches in groin anteriorly to ankle of RLE. A week after injury she saw a chiropractor friend and was referred to Dr. Vega who suggested an injection. She deferred and instead went to see her spouse's neurosurgeon (Dr. Francisco Lora) and was given a referral by his title assistant PRAVEEN Edward at [facility]. Prior Treatments and Tests MRI @ [facility] indicates trace degenerative retrolisthesis of L4 on L5 and L3 onL4. Disc Bulge: T12-L1 Moderate diffuse, L1-L2 Minimal, L2-L3 Mild, L3-L4 Large free disc fragment that migrated superior to the disc space, eccentric to the right at L3-L4 impinging on the R L3 nerve root and posteriorly deviates the right L4 nerve root and moderate diffuse disc bulge and moderate to severe canal stenosis. Mild rod foraminal narrowing. L4-L5: Moderate to severe disc height loss, chronic & disc protrusion deviating the left L5 nerve root posteriorly. L5 vertebral body is partially sacralized. Future Testing and Treatments Planned Will follow up with Dr. Mcqueen the first of August. Developmental History Developmental History Pt states she herniated 2 discs, L4-5 or L3-4 when reached over and lifted something heavy with the R hand resulting in numbness in the R lateral thigh to anterior lower leg (lower leg is most painful). Initially pain was at groin and in front of the anterior leg. A week ago was stepping down from a chair and the R leg wouldn't hold her. Treatment Goals Patient/Caregiver Goals Pt goal: to stretch and be careful to develop strength in the R leg and core, and to regain strength and eliminate numbness of the R leg. Prior Functional Status Baseline Function- ADL's Independent Baseline Function- Mobility Independent Baseline Function- Gait Able to slow jog/fast walk, up to the neighbors when in a hurry, can't now. 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 Baseline Function- Recreation/Hobbies Hiked trails a couple miles a couple days a week. Current Functional Impairments (Reported) Functional Limitations- ADL's Not able to lift objects. Not able to slow jog/fast walk to neighbors house. Limited in descending stairs, steps, hiking due to RLE weakness. Functional Limitations- Work/School Gets up every hour to walk 500 + steps. R LE is numb but begins to hurt as the day goes on. 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 PT-OP-C Subjective Start: 07/01/20 18:23 Freq: Status: Active Protocol: Document 09/15/20 09:07 LRN (Rec: 09/15/20 10:17 LRN [id number]) OP-PT Subjective Patient Comments Patient Comments Drive to [place] and did not bother her back or thigh. Notes swelling in R foot on bottom. Has numbness in the R leg. Strength in R leg is fine. No problem in back or thigh for ages. PT-OP-E Functional Tests Start: 07/01/20 18:23 Freq: Status: Active Protocol: Document 09/15/20 09:07 LRN (Rec: 02/04/21 10:17 LRN [id number]) Functional Tests Other SLS Name of Test SLS hands across chest, no shoes Score 8 secs left, 6 secs right Comment SLS hands on hips & shoes on: 13 secs left, 12 secs right. PT-OP-G Mobility & Gait Start: 07/01/20 18:23 Freq: Status: Active Protocol: Document 08/16/20 10:40 LRN (Rec: 08/16/20 11:22 LRN [id number]) Stair Climbing Evaluation Evaluation Level of Assist On Stairs Independent Devices Stair Climbing Assistive Devices None Technique/Endurance Stair Climbing Direction Ascend and Descend Stair Climbing Technique Step Over Step Number of Steps Climbed 4 Stair Climbing Set # Repetitions (reps) 2 Comments Stair Climbing Comments Mild weakness noted with descending (ECC contraction on RLE). PT-OP-H Neuro Start: 07/01/20 18:23 Freq: Status: Active Protocol: Document 07/11/20 11:24 LRN (Rec: 07/11/20 12:28 LRN [id number]) Sensation Evaluation Gross Sensation Gross Sensation Right LE Impaired Sensation Description Numbness Dermatome Impairments L2,L3,L4 Deep Tendon Reflex & Clonus Assessment Deep Tendon Reflex Right Achilles Deep Tendon Reflex 1+ Diminished Right Patellar Deep Tendon Reflex 2+ Normal PT-OP-J Posture/Palpation/Skin Start: 07/01/20 18:23 Freq: Status: Active Protocol: Document 07/11/20 11:24 LRN (Rec: 07/11/20 12:28 LRN [id number]) Posture Evaluation Comments Posture Comments Mild forward head. Increased lumbar lordosis. R shoulder depressed, R hip elevated. C-curve lower thoracic to sacrum with apex on left. Palpation Assessment Location Lumbar Spine Palpation Location PA glide Spinous process L4-L5 Palpation Findings Tenderness Palpation Details Pt denies tenderness at R Lumbar Transverse processes and facets joints with PA pressure. Low back Palpation Location Lumbar paraspinals Palpation Findings Soft Tissue Tightness,Muscle Guarding Palpation Details Right worse than left. PT-OP-K Range of Motion Start: 07/01/20 18:23 Freq: Status: Active Protocol: Document 07/11/20 11:24 LRN (Rec: 07/11/20 18:48 LRN [id number]) Lumbar Spine Range of Motion Lumbar Spine Active Degrees Testing Position Standing Flexion 35 Extension 14 Rotation Left 45 Rotation Right 20 Lateral Flexion Left 15 Lateral Flexion Right 10 Hip Goniometric Range of Motion Hip Left Passive Testing Position Supine Straight Leg Raise 50 Abduction 35 Internal Rotation 30 External Rotation 70 Comments Active SLR was 50 deg's. Right Passive Testing Position Supine Straight Leg Raise 40 Abduction 30 Internal Rotation 35 External Rotation 55 Comments Active SLR was 30 deg's. PT-OP-L Special Tests Start: 07/01/20 18:23 Freq: Status: Active Protocol: Document 07/11/20 11:24 LRN (Rec: 07/11/20 18:48 LRN [id number]) Special Tests Lumbar Spine Special Tests Vertical Spine Loading Test Results - Comments No change in R LE symptoms Straight Leg Raise Test Results + right Comments Hamstring tightness report bilaterally Manual Traction Test Results - Comments No change in R LE symptoms PT-OP-M Strength Start: 07/01/20 18:23 Freq: Status: Active Protocol: Document 09/15/20 09:07 LRN (Rec: 09/15/20 10:17 LRN [id number]) Hip Strength Hip Manual Muscle Testing Right Flexion (L2) 4+ Good+ PT-OP-Q Treatments Start: 07/01/20 18:23 Freq: Status: Active Protocol: Document 09/15/20 09:07 LRN (Rec: 09/15/20 10:17 LRN [id number]) Therapeutic Exercises Supine Exercises TA w/leg lowering/raw egg underneath Supine Exercise Name TA w/leg lowering/raw egg underneath Side bilateral Equipment Used Stick Comments Extra time for training TA w/leg lowering Side bilateral Equipment Used Stick Reps/Minutes 10x Comments Extra time for training TA heel slides Side bilateral Equipment Used Stick Reps/Minutes 15x each Comments Extra time for training TA w/knee outs Side bilateral Equipment Used Stick Reps/Minutes 15x each Comments Extra time for training Neuro Re-Education Treatment Balance Activities SLS Details SLS Surface Level Reps/Duration 8' Comments Without shoes, hands across chest: 8 secs left, 6 secs right. With shoes, hands on hips: 13 secs left, 12 secs right. Self-Care/Home Management Treatment Education Patient Education Home Exercise Program Activities Self-Care/Home Management Activities Issued & reviewed HEP: Progressive Stability/Core Strengthening Program; & Abdominal Core Exercises: Phase 1-3 (heel lifts off wall > rotatioin >Hands/knee push. PT-OP-R Modalities Start: 07/01/20 18:23 Freq: Status: Active Protocol: Document 09/15/20 09:07 LRN (Rec: 09/15/20 10:17 LRN [id number]) Electric Stimulation Electric Stimulation Interferential Current (IFC) Body Location lumbosacral Duration (Minutes) 15 Intensity 8 Target/Sweep Sweep Patient Position Hooklying Combined With Heat/Cold Hot Pack Hot Pack/Cold Pack Treatment Hot Pack Location Low Back Patient Position Hooklying Treatment Duration (minutes) 15 Comments Extra towel layer. PT-OP-T Assessment and Plan Start: 07/01/20 18:23 Freq: Status: Active Protocol: Document 09/15/20 09:07 LRN (Rec: 09/15/20 10:17 LRN [id number]) Physical Therapy Assessment Goals Three Impairment Dec'd core strength (not able to maintain core stability w/ LE resistance) Short Term Goal (STG) Pt will be educated in core stabilization program. STG Duration 08/08/20 (09/15/20: MET GOAL) Senior Care Goal (LTG) Pt will be able to maintain core stability with resistance to the LE's resulting in decreased pain complaints with hiking/walking. (08/16/20: Core moderate to mildly stabilized with R LE resistance to flex, stabilized with LLE resistance to flex). LTG Duration 10/09/20 (08/16/20: Improving) Two Impairment Decreased R LE strength Short Term Goal (STG) Increase R LE strength with pt able to SLS with confidence for no less than 30 secs. (08/16/20: R: 4 sec, L: 2 secs) STG Duration 09/10/19 Fabric Separator Operator Goal (LTG) R LE strength of 5/5 with pt able to ambulate stairs with an alternating gait without fear of falling. (09/15/20: Pt feels confident going up/down steps with or without railing) LTG Duration 10/09/20 (09/15/20: MET GOAL) One Impairment Pt lacks appropriate self care HEP Senior Care Goal (LTG) Pt will be independent in a self care HEP of flexibility and strengthening exercises. (09/15/20: HEP issued: Progressive Stability/Core strengthening program & Phase 1-3 of Abdominal Core Power Program (roll in/out program). LTG Duration 10/09/20 (09/15/20: Progressing) Progress Towards Goals Progress Comments LTG #2 MET. Pt feeling confident with stair ambulation with reciprocal gait. STG #3 MET. Pt issued HEP of core strengthening & a stability/core progressive strengthening program. Assessment Summary Assessment Pt improved function with reported ability to travel without onset of back pain or R thigh sensation changes. R lower leg numbness present. IFES to end for decrease strain from ex and to promote healing. Physical Therapy Plan Frequency and Duration Frequency of Treatment 2x/Week Duration of Treatment 3 months Plan of Care Start Date 07/11/20 Plan of Care End Date 10/09/20 Next Visit Focus/Plan Next Note Type Treatment Note Next Visit Plan Assess core strength with hip MMT. Review hamstring/LE neural stretch. Add marching ex. Trial Manual lumbar traction for lower leg numbness, R LE (sit to stand), squat exercises, IFES; if helpful STM anterior RLE/foot (to normalize sensation). Review core stab program HEP for independence & continue to work on ability to squat for retrieving objects from floor. Focus on normalizing R lower leg sensation & core/R LE strengthening to improve pt goal of being able to go long distance hiking. Balance training (pt to ex ankles at home). Consider improving tolerance TM at angles. ? shuttle recovery
--- NOTE | 2020-09-19 15:52 | PT.OTN ---
Current Diagnoses Intervertebral disc disorders with radiculopathy, lumbar region (09/19/20) Physical Therapy Treatment Note PT-OP-A Visit Information Start: 07/01/20 18:23 Freq: Status: Active Protocol: Document 09/19/20 14:28 LRN (Rec: 09/19/20 15:41 LRN [id number]) Out-Patient Physical Therapy Visit Information Visit Information Visit Type Treatment Note Visit Start Time 14:28 Visit Stop Time 15:13 Total Visit Minutes 45 Visit Number 17 Evaluation Information Evaluation Date 07/11/20 Precautions Precautions Fall history due to current condition. PT-OP-B Current Condition Start: 07/01/20 18:23 Freq: Status: Active Protocol: Document 07/11/20 11:24 LRN (Rec: 07/11/20 12:28 LRN [id number]) Current Condition History of Current Condition Onset Date May 25, 2020. Current Complaints R leg numbness and weakness. History of Current Condition Pt reports numbness and a tired feeling in the R leg. States she went hiking the other day and felt she was incapable of normal walking. States she used to stand on one leg with the other up on a counter to shave her legs, but now when trying to stand on R leg, her leg gives out. States she has fallen several times to the ground due to the RLE giving out. When having pain: Aches in groin anteriorly to ankle of RLE. A week after injury she saw a chiropractor friend and was referred to Dr. Vega who suggested an injection. She deferred and instead went to see her spouse's neurosurgeon (Dr. Francisco Lora) and was given a referral by his diversional therapist's assistant PRAVEEN Edward at [facility]. Prior Treatments and Tests MRI @ [facility] indicates trace degenerative retrolisthesis of L4 on L5 and L3 onL4. Disc Bulge: T12-L1 Moderate diffuse, L1-L2 Minimal, L2-L3 Mild, L3-L4 Large free disc fragment that migrated superior to the disc space, eccentric to the right at L3-L4 impinging on the R L3 nerve root and posteriorly deviates the right L4 nerve root and moderate diffuse disc bulge and moderate to severe canal stenosis. Mild rod foraminal narrowing. L4-L5: Moderate to severe disc height loss, chronic & disc protrusion deviating the left L5 nerve root posteriorly. L5 vertebral body is partially sacralized. Future Testing and Treatments Planned Will follow up with Dr. Mcqueen the first of August. Developmental History Developmental History Pt states she herniated 2 discs, L4-5 or L3-4 when reached over and lifted something heavy with the R hand resulting in numbness in the R lateral thigh to anterior lower leg (lower leg is most painful). Initially pain was at groin and in front of the anterior leg. A week ago was stepping down from a chair and the R leg wouldn't hold her. Treatment Goals Patient/Caregiver Goals Pt goal: to stretch and be careful to develop strength in the R leg and core, and to regain strength and eliminate numbness of the R leg. Prior Functional Status Baseline Function- ADL's Independent Baseline Function- Mobility Independent Baseline Function- Gait Able to slow jog/fast walk, up to the neighbors when in a hurry, can't now. 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 Baseline Function- Recreation/Hobbies Hiked trails a couple miles a couple days a week. Current Functional Impairments (Reported) Functional Limitations- ADL's Not able to lift objects. Not able to slow jog/fast walk to neighbors house. Limited in descending stairs, steps, hiking due to RLE weakness. Functional Limitations- Work/School Gets up every hour to walk 500 + steps. R LE is numb but begins to hurt as the day goes on. 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 PT-OP-C Subjective Start: 07/01/20 18:23 Freq: Status: Active Protocol: Document 09/19/20 14:28 LRN (Rec: 09/19/20 15:41 LRN [id number]) OP-PT Subjective Patient Comments Patient Comments No sensation changes in R upper thigh and not really in the foot (normal), only in the anterior lower leg is numbish . On sat/ of last week it felt more normal. After a 5 mile walk yesterday not as much numbness. PT-OP-E Functional Tests Start: 07/01/20 18:23 Freq: Status: Active Protocol: Document 09/15/20 09:07 LRN (Rec: 09/15/20 10:17 LRN [id number]) Functional Tests Other SLS Name of Test SLS hands across chest, no shoes Score 8 secs left, 6 secs right Comment SLS hands on hips & shoes on: 13 secs left, 12 secs right. PT-OP-G Mobility & Gait Start: 07/01/20 18:23 Freq: Status: Active Protocol: Document 08/16/20 10:40 LRN (Rec: 08/16/20 11:22 LRN [id number]) Stair Climbing Evaluation Evaluation Level of Assist On Stairs Independent Devices Stair Climbing Assistive Devices None Technique/Endurance Stair Climbing Direction Ascend and Descend Stair Climbing Technique Step Over Step Number of Steps Climbed 4 Stair Climbing Set # Repetitions (reps) 2 Comments Stair Climbing Comments Mild weakness noted with descending (ECC contraction on RLE). PT-OP-H Neuro Start: 07/01/20 18:23 Freq: Status: Active Protocol: Document 07/11/20 11:24 LRN (Rec: 07/11/20 12:28 LRN [id number]) Sensation Evaluation Gross Sensation Gross Sensation Right LE Impaired Sensation Description Numbness Dermatome Impairments L2,L3,L4 Deep Tendon Reflex & Clonus Assessment Deep Tendon Reflex Right Achilles Deep Tendon Reflex 1+ Diminished Right Patellar Deep Tendon Reflex 2+ Normal PT-OP-J Posture/Palpation/Skin Start: 07/01/20 18:23 Freq: Status: Active Protocol: Document 07/11/20 11:24 LRN (Rec: 07/11/20 12:28 LRN [id number]) Posture Evaluation Comments Posture Comments Mild forward head. Increased lumbar lordosis. R shoulder depressed, R hip elevated. C-curve lower thoracic to sacrum with apex on left. Palpation Assessment Location Lumbar Spine Palpation Location PA glide Spinous process L4-L5 Palpation Findings Tenderness Palpation Details Pt denies tenderness at R Lumbar Transverse processes and facets joints with PA pressure. Low back Palpation Location Lumbar paraspinals Palpation Findings Soft Tissue Tightness,Muscle Guarding Palpation Details Right worse than left. PT-OP-K Range of Motion Start: 07/01/20 18:23 Freq: Status: Active Protocol: Document 07/11/20 11:24 LRN (Rec: 07/11/20 18:48 LRN [id number]) Lumbar Spine Range of Motion Lumbar Spine Active Degrees Testing Position Standing Flexion 35 Extension 14 Rotation Left 45 Rotation Right 20 Lateral Flexion Left 15 Lateral Flexion Right 10 Hip Goniometric Range of Motion Hip Left Passive Testing Position Supine Straight Leg Raise 50 Abduction 35 Internal Rotation 30 External Rotation 70 Comments Active SLR was 50 deg's. Right Passive Testing Position Supine Straight Leg Raise 40 Abduction 30 Internal Rotation 35 External Rotation 55 Comments Active SLR was 30 deg's. PT-OP-L Special Tests Start: 07/01/20 18:23 Freq: Status: Active Protocol: Document 07/11/20 11:24 LRN (Rec: 07/11/20 18:48 LRN [id number]) Special Tests Lumbar Spine Special Tests Vertical Spine Loading Test Results - Comments No change in R LE symptoms Straight Leg Raise Test Results + right Comments Hamstring tightness report bilaterally Manual Traction Test Results - Comments No change in R LE symptoms PT-OP-M Strength Start: 07/01/20 18:23 Freq: Status: Active Protocol: Document 09/19/20 14:28 LRN (Rec: 09/19/20 15:41 LRN [id number]) Trunk Strength Trunk Manual Muscle Testing Testing Position Sitting Flexion 4 Good Extension 3+ Fair+ Rotation Left 4- Good- Rotation Right 4- Good- Lateral Flexion Left 5 Normal Lateral Flexion Right 4- Good- PT-OP-Q Treatments Start: 07/01/20 18:23 Freq: Status: Active Protocol: Document 09/19/20 14:28 LRN (Rec: 09/19/20 15:41 LRN [id number]) Therapeutic Exercises Supine Exercises Trunk rot/feet on wall Supine Exercise Name Trunk rot Side bilateral Reps/Minutes 8' Heel off wall/roll in & outs Supine Exercise Name Heel off wall/roll in & outs Side bilateral Reps/Minutes 5' Hands/Knees Push Supine Exercise Name Hands/knees Push Side bilateral Resistance Self Manual Reps/Minutes 6' Comments Extra time for training Hamsting stretch Supine Exercise Name Hamstring/LE neural stretch Side right Reps/Minutes 2' Comments Extra time for training Sitting Exercises David Trunk strengthening Sitting Exercise Name Flex, ext, SB, rot Side bilateral Reps/Minutes 8' Comments MMT taken Standing Exercises sit to stands Standing Exercise Name R leg sit to stand Reps/Minutes 15x Comments Pt moves slow and cautiously, except for minor plop at end of sit. Manual Therapy Treatment Manual Traction Hip Details Long axis traction R LE Body Position Supine Reps/Duration 2' Comments No improvement of anterior lower leg numbness. Lumbar Details lumbar traction Body Position Supine Reps/Duration 8' Comments No change with R anterior lower leg numbness. Self-Care/Home Management Treatment Education Other Education Discussed options of increasing circulation in the R anterior lower leg with: ex, massage, hot/cold contrast baths. Recommended pt focus on trying to normalize sensation. Discussed hydration levels and alternatives to caffeine. PT-OP-R Modalities Start: 07/01/20 18:23 Freq: Status: Active Protocol: Document 09/15/20 09:07 LRN (Rec: 09/15/20 10:17 LRN [id number]) Electric Stimulation Electric Stimulation Interferential Current (IFC) Body Location lumbosacral Duration (Minutes) 15 Intensity 8 Target/Sweep Sweep Patient Position Hooklying Combined With Heat/Cold Hot Pack Hot Pack/Cold Pack Treatment Hot Pack Location Low Back Patient Position Hooklying Treatment Duration (minutes) 15 Comments Extra towel layer. PT-OP-T Assessment and Plan Start: 07/01/20 18:23 Freq: Status: Active Protocol: Document 09/19/20 14:28 LRN (Rec: 09/19/20 15:41 LRN [id number]) Physical Therapy Assessment Goals Three Impairment Dec'd core strength (not able to maintain core stability w/ LE resistance) Short Term Goal (STG) Pt will be educated in core stabilization program. STG Duration 08/08/20 (09/15/20: MET GOAL) Custodial Goal (LTG) Pt will be able to maintain core stability with resistance to the LE's resulting in decreased pain complaints with hiking/walking. (08/16/20: Core moderate to mildly stabilized with R LE resistance to flex, stabilized with LLE resistance to flex). LTG Duration 10/09/20 (08/16/20: Improving) Two Impairment Decreased R LE strength Short Term Goal (STG) Increase R LE strength with pt able to SLS with confidence for no less than 30 secs. (08/16/20: R: 4 sec, L: 2 secs) STG Duration 09/10/19 Brim Pouncer Machine Operator Goal (LTG) R LE strength of 5/5 with pt able to ambulate stairs with an alternating gait without fear of falling. (2/4/21: Pt feels confident going up/down steps with or without railing) LTG Duration 10/09/20 (09/15/20: MET GOAL) One Impairment Pt lacks appropriate self care HEP Brim Pouncer Machine Operator Goal (LTG) Pt will be independent in a self care HEP of flexibility and strengthening exercises. (09/15/20: HEP issued: Progressive Stability/Core strengthening program & Phase 1-3 of Abdominal Core Power Program (roll in/out program). LTG Duration 10/09/20 (09/15/20: Progressing) Assessment Summary Assessment Pt demonstrates mild loss of core stability with MMT of hip flex. Unable to assess hip strength in other core positions (sidelie & prone) due c/o of onset of vertigo with changing of positions on plinth. Per MMT noted weakness of core. Hamstring stretch will sheet roll is correct. Sensation doesn't change with manual lumbar traction or LE traction. Physical Therapy Plan Frequency and Duration Frequency of Treatment 2x/Week Duration of Treatment 3 months Plan of Care Start Date 07/11/20 Plan of Care End Date 10/09/20 Next Visit Focus/Plan Next Note Type Treatment Note Next Visit Plan Add marching ex. Trial Manual lumbar traction for lower leg numbness, R LE (sit to stand) , squat exercises, IFES; if helpful. STM anterior RLE/ foot (to normalize sensation). Review core stab program HEP for independence & continue to work on ability to squat for retrieving objects from floor. Focus on normalizing R lower leg sensation & core/R LE strengthening to improve pt goal of being able to go long distance hiking. Balance training (pt to ex ankles at home). Consider improving tolerance TM at angles. ? shuttle recovery
--- NOTE | 2020-09-22 17:38 | PT.OTN ---
Current Diagnoses Intervertebral disc disorders with radiculopathy, lumbar region (09/22/20) Physical Therapy Treatment Note PT-OP-A Visit Information Start: 07/01/20 18:23 Freq: Status: Active Protocol: Document 09/22/20 09:09 LRN (Rec: 09/22/20 09:50 LRN [id number]) Out-Patient Physical Therapy Visit Information Visit Information Visit Type Treatment Note Visit Note 8 after PN Visit Start Time 09:09 Visit Stop Time 10:01 Total Visit Minutes 52 Visit Number 18 PT-OP-B Current Condition Start: 07/01/20 18:23 Freq: Status: Active Protocol: Document 07/11/20 11:24 LRN (Rec: 07/11/20 12:28 LRN [id number]) Current Condition History of Current Condition Onset Date May 25, 2020. Current Complaints R leg numbness and weakness. History of Current Condition Pt reports numbness and a tired feeling in the R leg. States she went hiking the other day and felt she was incapable of normal walking. States she used to stand on one leg with the other up on a counter to shave her legs, but now when trying to stand on R leg, her leg gives out. States she has fallen several times to the ground due to the RLE giving out. When having pain: Aches in groin anteriorly to ankle of RLE. A week after injury she saw a chiropractor friend and was referred to Dr. Vega who suggested an injection. She deferred and instead went to see her spouse's neurosurgeon (Dr. Francisco Lora) and was given a referral by his assistant branch manager PRAVEEN Edward at [facility]. Prior Treatments and Tests MRI @ [facility] indicates trace degenerative retrolisthesis of L4 on L5 and L3 onL4. Disc Bulge: T12-L1 Moderate diffuse, L1-L2 Minimal, L2-L3 Mild, L3-L4 Large free disc fragment that migrated superior to the disc space, eccentric to the right at L3-L4 impinging on the R L3 nerve root and posteriorly deviates the right L4 nerve root and moderate diffuse disc bulge and moderate to severe canal stenosis. Mild rod foraminal narrowing. L4-L5: Moderate to severe disc height loss, chronic & disc protrusion deviating the left L5 nerve root posteriorly. L5 vertebral body is partially sacralized. Future Testing and Treatments Planned Will follow up with Dr. Mcqueen the first of August. Developmental History Developmental History Pt states she herniated 2 discs, L4-5 or L3-4 when reached over and lifted something heavy with the R hand resulting in numbness in the R lateral thigh to anterior lower leg (lower leg is most painful). Initially pain was at groin and in front of the anterior leg. A week ago was stepping down from a chair and the R leg wouldn't hold her. Treatment Goals Patient/Caregiver Goals Pt goal: to stretch and be careful to develop strength in the R leg and core, and to regain strength and eliminate numbness of the R leg. Prior Functional Status Baseline Function- ADL's Independent Baseline Function- Mobility Independent Baseline Function- Gait Able to slow jog/fast walk, up to the neighbors when in a hurry, can't now. 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 Baseline Function- Recreation/Hobbies Hiked trails a couple miles a couple days a week. Current Functional Impairments (Reported) Functional Limitations- ADL's Not able to lift objects. Not able to slow jog/fast walk to neighbors house. Limited in descending stairs, steps, hiking due to RLE weakness. Functional Limitations- Work/School Gets up every hour to walk 500 + steps. R LE is numb but begins to hurt as the day goes on. 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 PT-OP-C Subjective Start: 07/01/20 18:23 Freq: Status: Active Protocol: Document 09/22/20 09:09 LRN (Rec: 09/22/20 09:50 LRN [id number]) OP-PT Subjective Patient Comments Patient Comments Requests use of E-Stim because she notes there if more stress in her back without using. Isn't able to squat as much doing things with her dog. Did use hot pack on back and found it helpful to decrease back pain and warm the R lower leg (felt to touch and internally cold). Back doesn' t hurt, just gets tired. PT-OP-E Functional Tests Start: 07/01/20 18:23 Freq: Status: Active Protocol: Document 09/15/20 09:07 LRN (Rec: 09/15/20 10:17 LRN [id number]) Functional Tests Other SLS Name of Test SLS hands across chest, no shoes Score 8 secs left, 6 secs right Comment SLS hands on hips & shoes on: 13 secs left, 12 secs right. PT-OP-G Mobility & Gait Start: 07/01/20 18:23 Freq: Status: Active Protocol: Document 08/16/20 10:40 LRN (Rec: 08/16/20 11:22 LRN [id number]) Stair Climbing Evaluation Evaluation Level of Assist On Stairs Independent Devices Stair Climbing Assistive Devices None Technique/Endurance Stair Climbing Direction Ascend and Descend Stair Climbing Technique Step Over Step Number of Steps Climbed 4 Stair Climbing Set # Repetitions (reps) 2 Comments Stair Climbing Comments Mild weakness noted with descending (ECC contraction on RLE). PT-OP-H Neuro Start: 07/01/20 18:23 Freq: Status: Active Protocol: Document 07/11/20 11:24 LRN (Rec: 07/11/20 12:28 LRN [id number]) Sensation Evaluation Gross Sensation Gross Sensation Right LE Impaired Sensation Description Numbness Dermatome Impairments L2,L3,L4 Deep Tendon Reflex & Clonus Assessment Deep Tendon Reflex Right Achilles Deep Tendon Reflex 1+ Diminished Right Patellar Deep Tendon Reflex 2+ Normal PT-OP-J Posture/Palpation/Skin Start: 07/01/20 18:23 Freq: Status: Active Protocol: Document 07/11/20 11:24 LRN (Rec: 07/11/20 12:28 LRN [id number]) Posture Evaluation Comments Posture Comments Mild forward head. Increased lumbar lordosis. R shoulder depressed, R hip elevated. C-curve lower thoracic to sacrum with apex on left. Palpation Assessment Location Lumbar Spine Palpation Location PA glide Spinous process L4-L5 Palpation Findings Tenderness Palpation Details Pt denies tenderness at R Lumbar Transverse processes and facets joints with PA pressure. Low back Palpation Location Lumbar paraspinals Palpation Findings Soft Tissue Tightness,Muscle Guarding Palpation Details Right worse than left. PT-OP-K Range of Motion Start: 07/01/20 18:23 Freq: Status: Active Protocol: Document 07/11/20 11:24 LRN (Rec: 07/11/20 18:48 LRN [id number]) Lumbar Spine Range of Motion Lumbar Spine Active Degrees Testing Position Standing Flexion 35 Extension 14 Rotation Left 45 Rotation Right 20 Lateral Flexion Left 15 Lateral Flexion Right 10 Hip Goniometric Range of Motion Hip Left Passive Testing Position Supine Straight Leg Raise 50 Abduction 35 Internal Rotation 30 External Rotation 70 Comments Active SLR was 50 deg's. Right Passive Testing Position Supine Straight Leg Raise 40 Abduction 30 Internal Rotation 35 External Rotation 55 Comments Active SLR was 30 deg's. PT-OP-L Special Tests Start: 07/01/20 18:23 Freq: Status: Active Protocol: Document 07/11/20 11:24 LRN (Rec: 07/11/20 18:48 LRN [id number]) Special Tests Lumbar Spine Special Tests Vertical Spine Loading Test Results - Comments No change in R LE symptoms Straight Leg Raise Test Results + right Comments Hamstring tightness report bilaterally Manual Traction Test Results - Comments No change in R LE symptoms PT-OP-M Strength Start: 07/01/20 18:23 Freq: Status: Active Protocol: Document 09/19/20 14:28 LRN (Rec: 09/19/20 15:41 LRN [id number]) Trunk Strength Trunk Manual Muscle Testing Testing Position Sitting Flexion 4 Good Extension 3+ Fair+ Rotation Left 4- Good- Rotation Right 4- Good- Lateral Flexion Left 5 Normal Lateral Flexion Right 4- Good- PT-OP-Q Treatments Start: 07/01/20 18:23 Freq: Status: Active Protocol: Document 09/22/20 09:09 LRN (Rec: 09/22/20 09:50 LRN [id number]) Therapeutic Exercises Supine Exercises Hands/Knees Push Supine Exercise Name Hands/knees Push Side bilateral Resistance Self Manual Reps/Minutes 6' Comments Extra time for review and further training Hamsting stretch Supine Exercise Name Hamstring/LE neural stretch Side right Reps/Minutes 4' Comments Extra time and phys assist needed for training TA w/BKFO Supine Exercise Name TA w/BKFO Resistance Lev 1 TB Reps/Minutes 5' Comments Pt having trouble focusing on keeping pelvis stable Standing Exercises Marching Standing Exercise Name Marching Side bilateral Reps/Minutes 4' Squats Standing Exercise Name Squats with UE's assist. Side bilateral Reps/Minutes 4' sit to stands Standing Exercise Name R leg sit to stand Reps/Minutes 3' Comments Minor plop at end of sit. Manual Therapy Treatment Manual Traction Lumbar Details lumbar traction - continuous Body Position Supine Reps/Duration 6' Comments No change with R anterior lower leg numbness. Self-Care/Home Management Treatment Activities Self-Care/Home Management Activities I/S pt to do Marching, Squats & Sit to Stands with RLE. PT-OP-R Modalities Start: 07/01/20 18:23 Freq: Status: Active Protocol: Document 09/22/20 09:09 LRN (Rec: 09/22/20 09:50 LRN [id number]) Electric Stimulation Electric Stimulation Interferential Current (IFC) Body Location lumbosacral Duration (Minutes) 15 Intensity 8 Target/Sweep Sweep Patient Position Hooklying Combined With Heat/Cold Hot Pack Hot Pack/Cold Pack Treatment Hot Pack Location Low Back Patient Position Hooklying Treatment Duration (minutes) 15 Comments Extra towel layer. PT-OP-T Assessment and Plan Start: 07/01/20 18:23 Freq: Status: Active Protocol: Document 09/22/20 09:09 LRN (Rec: 09/22/20 09:50 LRN [id number]) Physical Therapy Assessment Goals Three Impairment Dec'd core strength (not able to maintain core stability w/ LE resistance) Short Term Goal (STG) Pt will be educated in core stabilization program. STG Duration 08/08/20 (09/15/20: MET GOAL) Senior Care Goal (LTG) Pt will be able to maintain core stability with resistance to the LE's resulting in decreased pain complaints with hiking/walking. (08/16/20: Core moderate to mildly stabilized with R LE resistance to flex, stabilized with LLE resistance to flex). LTG Duration 10/09/20 (08/16/20: Improving) Two Impairment Decreased R LE strength Short Term Goal (STG) Increase R LE strength with pt able to SLS with confidence for no less than 30 secs. (08/16/20: R: 4 sec, L: 2 secs) STG Duration 09/10/19 Senior Care Goal (LTG) R LE strength of 5/5 with pt able to ambulate stairs with an alternating gait without fear of falling. (09/15/20: Pt feels confident going up/down steps with or without railing) LTG Duration 10/09/20 (09/15/20: MET GOAL) One Impairment Pt lacks appropriate self care HEP Senior Care Goal (LTG) Pt will be independent in a self care HEP of flexibility and strengthening exercises. (09/15/20: HEP issued: Progressive Stability/Core strengthening program & Phase 1-3 of Abdominal Core Power Program (roll in/out program). LTG Duration 10/09/20 (09/15/20: Progressing) Assessment Summary Assessment RLE weakness from symptoms of L/S involvement. Pt having trouble remembering her HEP, pt hasn't been doing her HEP last visit. Pt demonstrates good knowledge of proper back posture with transfers. Weak in RLE. No change with manual lumbar traction. Might try manual knee traction and/or mechanical lumbar traction for normalization of R anterior tib numbness. Assess balance and try soft surface for balance training. Physical Therapy Plan Frequency and Duration Frequency of Treatment 2x/Week Duration of Treatment 3 months Plan of Care Start Date 07/11/20 Plan of Care End Date 10/09/20 Next Visit Focus/Plan Next Note Type Treatment Note Next Visit Plan Progress marching ex. Trial Manual lumbar traction for lower leg numbness, R LE (sit to stand), squat exercises, IFES; if helpful. STM anterior RLE/foot (to normalize sensation). Review core stab program HEP for independence & continue to work on ability to squat for retrieving objects from floor. Focus on normalizing R lower leg sensation & core/R LE strengthening to improve pt goal of being able to go long distance hiking. Balance training (pt to ex ankles at home). Consider improving tolerance TM at angles. ? shuttle recovery
--- NOTE | 2020-09-29 11:56 | PT.OTN ---
Current Diagnoses Intervertebral disc disorders with radiculopathy, lumbar region (09/29/20) Physical Therapy Treatment Note PT-OP-A Visit Information Start: 07/01/20 18:23 Freq: Status: Active Protocol: Document 09/29/20 11:21 LRN (Rec: 09/29/20 11:54 LRN [id number]) Out-Patient Physical Therapy Visit Information Visit Information Visit Type Treatment Note Visit Note 9 after PN Visit Start Time 11:21 Visit Stop Time 12:00 Total Visit Minutes 39 Visit Number 19 Evaluation Information Evaluation Date 07/11/20 Precautions Precautions Fall history due to current condition. PT-OP-B Current Condition Start: 07/01/20 18:23 Freq: Status: Active Protocol: Document 07/11/20 11:24 LRN (Rec: 07/11/20 12:28 LRN [id number]) Current Condition History of Current Condition Onset Date May 25, 2020. Current Complaints R leg numbness and weakness. History of Current Condition Pt reports numbness and a tired feeling in the R leg. States she went hiking the other day and felt she was incapable of normal walking. States she used to stand on one leg with the other up on a counter to shave her legs, but now when trying to stand on R leg, her leg gives out. States she has fallen several times to the ground due to the RLE giving out. When having pain: Aches in groin anteriorly to ankle of RLE. A week after injury she saw a chiropractor friend and was referred to Dr. Vega who suggested an injection. She deferred and instead went to see her spouse's neurosurgeon (Dr. Francisco Lora) and was given a referral by his social media assistant PRAVEEN Edward at [facility]. Prior Treatments and Tests MRI @ [facility] indicates trace degenerative retrolisthesis of L4 on L5 and L3 onL4. Disc Bulge: T12-L1 Moderate diffuse, L1-L2 Minimal, L2-L3 Mild, L3-L4 Large free disc fragment that migrated superior to the disc space, eccentric to the right at L3-L4 impinging on the R L3 nerve root and posteriorly deviates the right L4 nerve root and moderate diffuse disc bulge and moderate to severe canal stenosis. Mild rod foraminal narrowing. L4-L5: Moderate to severe disc height loss, chronic & disc protrusion deviating the left L5 nerve root posteriorly. L5 vertebral body is partially sacralized. Future Testing and Treatments Planned Will follow up with Dr. Mcqueen the first of August. Developmental History Developmental History Pt states she herniated 2 discs, L4-5 or L3-4 when reached over and lifted something heavy with the R hand resulting in numbness in the R lateral thigh to anterior lower leg (lower leg is most painful). Initially pain was at groin and in front of the anterior leg. A week ago was stepping down from a chair and the R leg wouldn't hold her. Treatment Goals Patient/Caregiver Goals Pt goal: to stretch and be careful to develop strength in the R leg and core, and to regain strength and eliminate numbness of the R leg. Prior Functional Status Baseline Function- ADL's Independent Baseline Function- Mobility Independent Baseline Function- Gait Able to slow jog/fast walk, up to the neighbors when in a hurry, can't now. 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 Baseline Function- Recreation/Hobbies Hiked trails a couple miles a couple days a week. Current Functional Impairments (Reported) Functional Limitations- ADL's Not able to lift objects. Not able to slow jog/fast walk to neighbors house. Limited in descending stairs, steps, hiking due to RLE weakness. Functional Limitations- Work/School Gets up every hour to walk 500 + steps. R LE is numb but begins to hurt as the day goes on. 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 PT-OP-C Subjective Start: 07/01/20 18:23 Freq: Status: Active Protocol: Document 09/29/20 11:21 LRN (Rec: 09/29/20 11:54 LRN [id number]) OP-PT Subjective Patient Comments Patient Comments Did a 4 mile walk (double her normal) and she felt fine. Today she has no back pain (to start), but requests use of EStim during ex. States the numbness in the R lower leg is sometimes less, thinks there is improvement. PT-OP-E Functional Tests Start: 07/01/20 18:23 Freq: Status: Active Protocol: Document 02/04/21 09:07 LRN (Rec: 09/15/20 10:17 LRN [id number]) Functional Tests Other SLS Name of Test SLS hands across chest, no shoes Score 8 secs left, 6 secs right Comment SLS hands on hips & shoes on: 13 secs left, 12 secs right. PT-OP-G Mobility & Gait Start: 07/01/20 18:23 Freq: Status: Active Protocol: Document 08/16/20 10:40 LRN (Rec: 08/16/20 11:22 LRN [id number]) Stair Climbing Evaluation Evaluation Level of Assist On Stairs Independent Devices Stair Climbing Assistive Devices None Technique/Endurance Stair Climbing Direction Ascend and Descend Stair Climbing Technique Step Over Step Number of Steps Climbed 4 Stair Climbing Set # Repetitions (reps) 2 Comments Stair Climbing Comments Mild weakness noted with descending (ECC contraction on RLE). PT-OP-H Neuro Start: 07/01/20 18:23 Freq: Status: Active Protocol: Document 07/11/20 11:24 LRN (Rec: 07/11/20 12:28 LRN [id number]) Sensation Evaluation Gross Sensation Gross Sensation Right LE Impaired Sensation Description Numbness Dermatome Impairments L2,L3,L4 Deep Tendon Reflex & Clonus Assessment Deep Tendon Reflex Right Achilles Deep Tendon Reflex 1+ Diminished Right Patellar Deep Tendon Reflex 2+ Normal PT-OP-J Posture/Palpation/Skin Start: 07/01/20 18:23 Freq: Status: Active Protocol: Document 07/11/20 11:24 LRN (Rec: 07/11/20 12:28 LRN [id number]) Posture Evaluation Comments Posture Comments Mild forward head. Increased lumbar lordosis. R shoulder depressed, R hip elevated. C-curve lower thoracic to sacrum with apex on left. Palpation Assessment Location Lumbar Spine Palpation Location PA glide Spinous process L4-L5 Palpation Findings Tenderness Palpation Details Pt denies tenderness at R Lumbar Transverse processes and facets joints with PA pressure. Low back Palpation Location Lumbar paraspinals Palpation Findings Soft Tissue Tightness,Muscle Guarding Palpation Details Right worse than left. PT-OP-K Range of Motion Start: 07/01/20 18:23 Freq: Status: Active Protocol: Document 07/11/20 11:24 LRN (Rec: 07/11/20 18:48 LRN [id number]) Lumbar Spine Range of Motion Lumbar Spine Active Degrees Testing Position Standing Flexion 35 Extension 14 Rotation Left 45 Rotation Right 20 Lateral Flexion Left 15 Lateral Flexion Right 10 Hip Goniometric Range of Motion Hip Left Passive Testing Position Supine Straight Leg Raise 50 Abduction 35 Internal Rotation 30 External Rotation 70 Comments Active SLR was 50 deg's. Right Passive Testing Position Supine Straight Leg Raise 40 Abduction 30 Internal Rotation 35 External Rotation 55 Comments Active SLR was 30 deg's. PT-OP-L Special Tests Start: 07/01/20 18:23 Freq: Status: Active Protocol: Document 07/11/20 11:24 LRN (Rec: 07/11/20 18:48 LRN [id number]) Special Tests Lumbar Spine Special Tests Vertical Spine Loading Test Results - Comments No change in R LE symptoms Straight Leg Raise Test Results + right Comments Hamstring tightness report bilaterally Manual Traction Test Results - Comments No change in R LE symptoms PT-OP-M Strength Start: 07/01/20 18:23 Freq: Status: Active Protocol: Document 09/19/20 14:28 LRN (Rec: 09/19/20 15:41 LRN [id number]) Trunk Strength Trunk Manual Muscle Testing Testing Position Sitting Flexion 4 Good Extension 3+ Fair+ Rotation Left 4- Good- Rotation Right 4- Good- Lateral Flexion Left 5 Normal Lateral Flexion Right 4- Good- PT-OP-Q Treatments Start: 07/01/20 18:23 Freq: Status: Active Protocol: Document 09/29/20 11:21 LRN (Rec: 09/29/20 11:54 LRN [id number]) Therapeutic Exercises Sidelying Exercises Hip AD Sidelying Exercise Name Hip AD/Core stab, R>L Side right Equipment Used 2#, 1# Reps/Minutes 10x each Hip AB Sidelying Exercise Name Hip AB/Core stab Side right Equipment Used 2#, 1# Reps/Minutes 10x each Standing Exercises Ilipsoas stretch Standing Exercise Name Iliopsoas stretch Side right Reps/Minutes 4' Comments Pt needed cuing because stretching too quickly Marching Standing Exercise Name Step ups on 16 high step Side bilateral Reps/Minutes 10x 3 sit to stands Standing Exercise Name R leg sit to stand Reps/Minutes 3' Comments Minor plop at end of sit. Manual Therapy Treatment Manual Traction Lumbar Details lumbar traction - continuous Body Position Supine Reps/Duration 3' Self-Care/Home Management Treatment Education Patient Education Posture Other Education Educated pt in modified nighttime positioning using folded towel for R lateral trunk in R sidelie. Pt is using towel support to low back in supine. PT-OP-R Modalities Start: 07/01/20 18:23 Freq: Status: Active Protocol: Document 09/22/20 09:09 LRN (Rec: 09/22/20 09:50 LRN [id number]) Electric Stimulation Electric Stimulation Interferential Current (IFC) Body Location lumbosacral Duration (Minutes) 15 Intensity 8 Target/Sweep Sweep Patient Position Hooklying Combined With Heat/Cold Hot Pack Hot Pack/Cold Pack Treatment Hot Pack Location Low Back Patient Position Hooklying Treatment Duration (minutes) 15 Comments Extra towel layer. PT-OP-T Assessment and Plan Start: 07/01/20 18:23 Freq: Status: Active Protocol: Document 09/29/20 11:21 LRN (Rec: 09/29/20 11:54 LRN [id number]) Physical Therapy Assessment Goals Three Impairment Dec'd core strength (not able to maintain core stability w/ LE resistance) Short Term Goal (STG) Pt will be educated in core stabilization program. STG Duration 08/08/20 (09/15/20: MET GOAL) Usp Goal (LTG) Pt will be able to maintain core stability with resistance to the LE's resulting in decreased pain complaints with hiking/walking. (08/16/20: Core moderate to mildly stabilized with R LE resistance to flex, stabilized with LLE resistance to flex). LTG Duration 10/09/20 (08/16/20: Improving) Two Impairment Decreased R LE strength Short Term Goal (STG) Increase R LE strength with pt able to SLS with confidence for no less than 30 secs. (08/16/20: R: 4 sec, L: 2 secs) STG Duration 09/10/19 Usp Goal (LTG) R LE strength of 5/5 with pt able to ambulate stairs with an alternating gait without fear of falling. (09/15/20: Pt feels confident going up/down steps with or without railing) LTG Duration 10/09/20 (09/15/20: MET GOAL) One Impairment Pt lacks appropriate self care HEP Usp Goal (LTG) Pt will be independent in a self care HEP of flexibility and strengthening exercises. (09/15/20: HEP issued: Progressive Stability/Core strengthening program & Phase 1-3 of Abdominal Core Power Program (roll in/out program). LTG Duration 10/09/20 (09/15/20: Progressing) Progress Towards Goals Progress Comments Pt noting lessening of numbness in R anterior lower leg sometimes. Pt able to tolerate walking longer/farther. Assessment Summary Assessment Pt weak with R hip flexor and quads associated with L/S involvement. Physical Therapy Plan Frequency and Duration Frequency of Treatment 2x/Week Duration of Treatment 3 months Plan of Care Start Date 07/11/20 Plan of Care End Date 10/09/20 Next Visit Focus/Plan Next Note Type Progress Note Next Visit Plan Assess response to modifying change in position of sleeping . Progress marching ex. Manual lumbar traction for lower leg numbness, R LE (sit to stand), squat exercises, IFES; if helpful. STM anterior RLE/foot (to normalize sensation). Review core stab program HEP for independence & continue to work on ability to squat for retrieving objects from floor. Focus on normalizing R lower leg sensation & core/R LE strengthening to improve pt goal of being able to go long distance hiking. Balance training (pt to ex ankles at home). Consider improving tolerance TM at angles. ? shuttle recovery
--- NOTE | 2020-09-29 13:17 | PT.OTN ---
Current Diagnoses Intervertebral disc disorders with radiculopathy, lumbar region (09/29/20) Physical Therapy Treatment Note PT-OP-A Visit Information Start: 07/01/20 18:23 Freq: Status: Active Protocol: Document 09/29/20 11:21 LRN (Rec: 09/29/20 11:54 LRN [id number]) Out-Patient Physical Therapy Visit Information Visit Information Visit Type Treatment Note Visit Note 9 after PN Visit Start Time 11:21 Visit Stop Time 12:00 Total Visit Minutes 39 Visit Number 19 Evaluation Information Evaluation Date 07/11/20 Precautions Precautions Fall history due to current condition. PT-OP-B Current Condition Start: 07/01/20 18:23 Freq: Status: Active Protocol: Document 07/11/20 11:24 LRN (Rec: 07/11/20 12:28 LRN [id number]) Current Condition History of Current Condition Onset Date May 25, 2020. Current Complaints R leg numbness and weakness. History of Current Condition Pt reports numbness and a tired feeling in the R leg. States she went hiking the other day and felt she was incapable of normal walking. States she used to stand on one leg with the other up on a counter to shave her legs, but now when trying to stand on R leg, her leg gives out. States she has fallen several times to the ground due to the RLE giving out. When having pain: Aches in groin anteriorly to ankle of RLE. A week after injury she saw a chiropractor friend and was referred to Dr. Vega who suggested an injection. She deferred and instead went to see her spouse's neurosurgeon (Dr. Francisco Lora) and was given a referral by his child center assistant PRAVEEN Edward at [facility]. Prior Treatments and Tests MRI @ [facility] indicates trace degenerative retrolisthesis of L4 on L5 and L3 onL4. Disc Bulge: T12-L1 Moderate diffuse, L1-L2 Minimal, L2-L3 Mild, L3-L4 Large free disc fragment that migrated superior to the disc space, eccentric to the right at L3-L4 impinging on the R L3 nerve root and posteriorly deviates the right L4 nerve root and moderate diffuse disc bulge and moderate to severe canal stenosis. Mild rod foraminal narrowing. L4-L5: Moderate to severe disc height loss, chronic & disc protrusion deviating the left L5 nerve root posteriorly. L5 vertebral body is partially sacralized. Future Testing and Treatments Planned Will follow up with Dr. Mcqueen the first of August. Developmental History Developmental History Pt states she herniated 2 discs, L4-5 or L3-4 when reached over and lifted something heavy with the R hand resulting in numbness in the R lateral thigh to anterior lower leg (lower leg is most painful). Initially pain was at groin and in front of the anterior leg. A week ago was stepping down from a chair and the R leg wouldn't hold her. Treatment Goals Patient/Caregiver Goals Pt goal: to stretch and be careful to develop strength in the R leg and core, and to regain strength and eliminate numbness of the R leg. Prior Functional Status Baseline Function- ADL's Independent Baseline Function- Mobility Independent Baseline Function- Gait Able to slow jog/fast walk, up to the neighbors when in a hurry, can't now. 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 Baseline Function- Recreation/Hobbies Hiked trails a couple miles a couple days a week. Current Functional Impairments (Reported) Functional Limitations- ADL's Not able to lift objects. Not able to slow jog/fast walk to neighbors house. Limited in descending stairs, steps, hiking due to RLE weakness. Functional Limitations- Work/School Gets up every hour to walk 500 + steps. R LE is numb but begins to hurt as the day goes on. 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 PT-OP-C Subjective Start: 07/01/20 18:23 Freq: Status: Active Protocol: Document 09/29/20 11:21 LRN (Rec: 09/29/20 11:54 LRN [id number]) OP-PT Subjective Patient Comments Patient Comments Did a 4 mile walk (double her normal) and she felt fine. Today she has no back pain (to start), but requests use of EStim during ex. States the numbness in the R lower leg is sometimes less, thinks there is improvement. PT-OP-E Functional Tests Start: 07/01/20 18:23 Freq: Status: Active Protocol: Document 02/04/21 09:07 LRN (Rec: 09/15/20 10:17 LRN [id number]) Functional Tests Other SLS Name of Test SLS hands across chest, no shoes Score 8 secs left, 6 secs right Comment SLS hands on hips & shoes on: 13 secs left, 12 secs right. PT-OP-G Mobility & Gait Start: 07/01/20 18:23 Freq: Status: Active Protocol: Document 08/16/20 10:40 LRN (Rec: 08/16/20 11:22 LRN [id number]) Stair Climbing Evaluation Evaluation Level of Assist On Stairs Independent Devices Stair Climbing Assistive Devices None Technique/Endurance Stair Climbing Direction Ascend and Descend Stair Climbing Technique Step Over Step Number of Steps Climbed 4 Stair Climbing Set # Repetitions (reps) 2 Comments Stair Climbing Comments Mild weakness noted with descending (ECC contraction on RLE). PT-OP-H Neuro Start: 07/01/20 18:23 Freq: Status: Active Protocol: Document 07/11/20 11:24 LRN (Rec: 07/11/20 12:28 LRN [id number]) Sensation Evaluation Gross Sensation Gross Sensation Right LE Impaired Sensation Description Numbness Dermatome Impairments L2,L3,L4 Deep Tendon Reflex & Clonus Assessment Deep Tendon Reflex Right Achilles Deep Tendon Reflex 1+ Diminished Right Patellar Deep Tendon Reflex 2+ Normal PT-OP-J Posture/Palpation/Skin Start: 07/01/20 18:23 Freq: Status: Active Protocol: Document 07/11/20 11:24 LRN (Rec: 07/11/20 12:28 LRN [id number]) Posture Evaluation Comments Posture Comments Mild forward head. Increased lumbar lordosis. R shoulder depressed, R hip elevated. C-curve lower thoracic to sacrum with apex on left. Palpation Assessment Location Lumbar Spine Palpation Location PA glide Spinous process L4-L5 Palpation Findings Tenderness Palpation Details Pt denies tenderness at R Lumbar Transverse processes and facets joints with PA pressure. Low back Palpation Location Lumbar paraspinals Palpation Findings Soft Tissue Tightness,Muscle Guarding Palpation Details Right worse than left. PT-OP-K Range of Motion Start: 07/01/20 18:23 Freq: Status: Active Protocol: Document 07/11/20 11:24 LRN (Rec: 07/11/20 18:48 LRN [id number]) Lumbar Spine Range of Motion Lumbar Spine Active Degrees Testing Position Standing Flexion 35 Extension 14 Rotation Left 45 Rotation Right 20 Lateral Flexion Left 15 Lateral Flexion Right 10 Hip Goniometric Range of Motion Hip Left Passive Testing Position Supine Straight Leg Raise 50 Abduction 35 Internal Rotation 30 External Rotation 70 Comments Active SLR was 50 deg's. Right Passive Testing Position Supine Straight Leg Raise 40 Abduction 30 Internal Rotation 35 External Rotation 55 Comments Active SLR was 30 deg's. PT-OP-L Special Tests Start: 07/01/20 18:23 Freq: Status: Active Protocol: Document 07/11/20 11:24 LRN (Rec: 07/11/20 18:48 LRN [id number]) Special Tests Lumbar Spine Special Tests Vertical Spine Loading Test Results - Comments No change in R LE symptoms Straight Leg Raise Test Results + right Comments Hamstring tightness report bilaterally Manual Traction Test Results - Comments No change in R LE symptoms PT-OP-M Strength Start: 07/01/20 18:23 Freq: Status: Active Protocol: Document 09/19/20 14:28 LRN (Rec: 09/19/20 15:41 LRN [id number]) Trunk Strength Trunk Manual Muscle Testing Testing Position Sitting Flexion 4 Good Extension 3+ Fair+ Rotation Left 4- Good- Rotation Right 4- Good- Lateral Flexion Left 5 Normal Lateral Flexion Right 4- Good- PT-OP-Q Treatments Start: 07/01/20 18:23 Freq: Status: Active Protocol: Document 09/29/20 11:21 LRN (Rec: 09/29/20 11:54 LRN [id number]) Therapeutic Exercises Sidelying Exercises Hip AD Sidelying Exercise Name Hip AD/Core stab, R>L Side right Equipment Used 2#, 1# Reps/Minutes 10x each Hip AB Sidelying Exercise Name Hip AB/Core stab Side right Equipment Used 2#, 1# Reps/Minutes 10x each Standing Exercises Ilipsoas stretch Standing Exercise Name Iliopsoas stretch Side right Reps/Minutes 4' Comments Pt needed cuing because stretching too quickly Marching Standing Exercise Name Step ups on 16 high step Side bilateral Reps/Minutes 10x 3 sit to stands Standing Exercise Name R leg sit to stand Reps/Minutes 3' Comments Minor plop at end of sit. Manual Therapy Treatment Manual Traction Lumbar Details lumbar traction - continuous Body Position Supine Reps/Duration 3' Self-Care/Home Management Treatment Education Patient Education Posture Other Education Educated pt in modified nighttime positioning using folded towel for R lateral trunk in R sidelie. Pt is using towel support to low back in supine. PT-OP-R Modalities Start: 07/01/20 18:23 Freq: Status: Active Protocol: Document 09/22/20 09:09 LRN (Rec: 09/22/20 09:50 LRN [id number]) Electric Stimulation Electric Stimulation Interferential Current (IFC) Body Location lumbosacral Duration (Minutes) 15 Intensity 8 Target/Sweep Sweep Patient Position Hooklying Combined With Heat/Cold Hot Pack Hot Pack/Cold Pack Treatment Hot Pack Location Low Back Patient Position Hooklying Treatment Duration (minutes) 15 Comments Extra towel layer. PT-OP-T Assessment and Plan Start: 07/01/20 18:23 Freq: Status: Active Protocol: Document 09/29/20 11:21 LRN (Rec: 09/29/20 11:54 LRN [id number]) Physical Therapy Assessment Goals Three Impairment Dec'd core strength (not able to maintain core stability w/ LE resistance) Short Term Goal (STG) Pt will be educated in core stabilization program. STG Duration 08/08/20 (09/15/20: MET GOAL) Long-Term Goal (LTG) Pt will be able to maintain core stability with resistance to the LE's resulting in decreased pain complaints with hiking/walking. (08/16/20: Core moderate to mildly stabilized with R LE resistance to flex, stabilized with LLE resistance to flex). LTG Duration 10/09/20 (08/16/20: Improving) Two Impairment Decreased R LE strength Short Term Goal (STG) Increase R LE strength with pt able to SLS with confidence for no less than 30 secs. (08/16/20: R: 4 sec, L: 2 secs) STG Duration 09/10/19 Long-Term Goal (LTG) R LE strength of 5/5 with pt able to ambulate stairs with an alternating gait without fear of falling. (09/15/20: Pt feels confident going up/down steps with or without railing) LTG Duration 10/09/20 (09/15/20: MET GOAL) One Impairment Pt lacks appropriate self care HEP Long-Term Goal (LTG) Pt will be independent in a self care HEP of flexibility and strengthening exercises. (09/15/20: HEP issued: Progressive Stability/Core strengthening program & Phase 1-3 of Abdominal Core Power Program (roll in/out program). LTG Duration 10/09/20 (09/15/20: Progressing) Progress Towards Goals Progress Comments Pt noting lessening of numbness in R anterior lower leg sometimes. Pt able to tolerate walking longer/farther. Assessment Summary Assessment Pt weak with R hip flexor and quads associated with L/S involvement (disc bulges @T12 through L4, & trace degenerative retrolisthesis of L4 on L5 and L3 on L4). Numbness in the R lower leg ( from mild rod foraminal narrowing. L4-L5) is at times improved; possibly from manual lumbar traction. Pt is reportedly tolerating longer walks. Physical Therapy Plan Frequency and Duration Frequency of Treatment 2x/Week Duration of Treatment 3 months Plan of Care Start Date 07/11/20 Plan of Care End Date 10/09/20 Next Visit Focus/Plan Next Note Type Progress Note Next Visit Plan Assess response to modifying change in position of sleeping . Progress marching ex. Assess core stability with LE MMT-type resistance & SLS. Manual lumbar traction for lower leg numbness, R LE (sit to stand), squat exercises, IFES; if helpful. STM anterior RLE/foot (to normalize sensation). Review core stab program HEP for independence & continue to work on ability to squat for retrieving objects from floor. Focus on normalizing R lower leg sensation & core/R LE strengthening to improve pt goal of being able to go long distance hiking. Balance training (pt to ex ankles at home). Consider improving tolerance TM at angles. ? shuttle recovery
--- NOTE | 2020-10-03 10:31 | PT.OTN ---
Current Diagnoses Intervertebral disc disorders with radiculopathy, lumbar region (10/03/20) Physical Therapy Treatment Note PT-OP-A Visit Information Start: 07/01/20 18:23 Freq: Status: Active Protocol: Document 10/03/20 09:13 LRN (Rec: 10/03/20 10:19 LRN [id number]) Out-Patient Physical Therapy Visit Information Visit Information Visit Type Progress Note Visit Start Time 09:13 Visit Stop Time 10:02 Total Visit Minutes 49 Visit Number 20 Evaluation Information Evaluation Date 07/11/20 Precautions Precautions Fall history due to current condition. PT-OP-B Current Condition Start: 07/01/20 18:23 Freq: Status: Active Protocol: Document 07/11/20 11:24 LRN (Rec: 07/11/20 12:28 LRN [id number]) Current Condition History of Current Condition Onset Date May 25, 2020. Current Complaints R leg numbness and weakness. History of Current Condition Pt reports numbness and a tired feeling in the R leg. States she went hiking the other day and felt she was incapable of normal walking. States she used to stand on one leg with the other up on a counter to shave her legs, but now when trying to stand on R leg, her leg gives out. States she has fallen several times to the ground due to the RLE giving out. When having pain: Aches in groin anteriorly to ankle of RLE. A week after injury she saw a chiropractor friend and was referred to Dr. Vega who suggested an injection. She deferred and instead went to see her spouse's neurosurgeon (Dr. Francisco Lora) and was given a referral by his fitter's assistant PRAVEEN Edward at [facility]. Prior Treatments and Tests MRI @ [facility] indicates trace degenerative retrolisthesis of L4 on L5 and L3 onL4. Disc Bulge: T12-L1 Moderate diffuse, L1-L2 Minimal, L2-L3 Mild, L3-L4 Large free disc fragment that migrated superior to the disc space, eccentric to the right at L3-L4 impinging on the R L3 nerve root and posteriorly deviates the right L4 nerve root and moderate diffuse disc bulge and moderate to severe canal stenosis. Mild rod foraminal narrowing. L4-L5: Moderate to severe disc height loss, chronic & disc protrusion deviating the left L5 nerve root posteriorly. L5 vertebral body is partially sacralized. Future Testing and Treatments Planned Will follow up with Dr. Mcqueen the first of August. Developmental History Developmental History Pt states she herniated 2 discs, L4-5 or L3-4 when reached over and lifted something heavy with the R hand resulting in numbness in the R lateral thigh to anterior lower leg (lower leg is most painful). Initially pain was at groin and in front of the anterior leg. A week ago was stepping down from a chair and the R leg wouldn't hold her. Treatment Goals Patient/Caregiver Goals Pt goal: to stretch and be careful to develop strength in the R leg and core, and to regain strength and eliminate numbness of the R leg. Prior Functional Status Baseline Function- ADL's Independent Baseline Function- Mobility Independent Baseline Function- Gait Able to slow jog/fast walk, up to the neighbors when in a hurry, can't now. 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 Baseline Function- Recreation/Hobbies Hiked trails a couple miles a couple days a week. Current Functional Impairments (Reported) Functional Limitations- ADL's Not able to lift objects. Not able to slow jog/fast walk to neighbors house. Limited in descending stairs, steps, hiking due to RLE weakness. Functional Limitations- Work/School Gets up every hour to walk 500 + steps. R LE is numb but begins to hurt as the day goes on. 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 PT-OP-C Subjective Start: 07/01/20 18:23 Freq: Status: Active Protocol: Document 10/03/20 09:13 LRN (Rec: 10/03/20 10:19 LRN [id number]) OP-PT Subjective Patient Comments Patient Comments States she feels she is ready for discharge. Doing high marching off of bathtub. Intermittent numbness and log periods of normal sensation. Yesterday hiked 3 miles on trails without weakness or R thigh pain and normalized sesation in lower leg. Patient Questionnaires Oswestry Low Back Index Oswestry Score 0 Oswestry Impairment 0% Impaired (Score 0) OP-PT Pain Assessment Pain Assessment Grid Paper Pain Assessment Grid Completed Yes Location R lower extremity Pain Location Details 0 Scale Used Numeric (0 - 10) Comments Pain Comments Pt notes rare numbness in the R hughes. PT-OP-E Functional Tests Start: 07/01/20 18:23 Freq: Status: Active Protocol: Document 10/03/20 09:13 LRN (Rec: 10/03/20 10:19 LRN [id number]) Functional Tests Other SLS Name of Test SLS Score R: 11 secs, L: 13 secs Comment Without shoes PT-OP-G Mobility & Gait Start: 07/01/20 18:23 Freq: Status: Active Protocol: Document 08/16/20 10:40 LRN (Rec: 08/16/20 11:22 LRN [id number]) Stair Climbing Evaluation Evaluation Level of Assist On Stairs Independent Devices Stair Climbing Assistive Devices None Technique/Endurance Stair Climbing Direction Ascend and Descend Stair Climbing Technique Step Over Step Number of Steps Climbed 4 Stair Climbing Set # Repetitions (reps) 2 Comments Stair Climbing Comments Mild weakness noted with descending (ECC contraction on RLE). PT-OP-H Neuro Start: 07/01/20 18:23 Freq: Status: Active Protocol: Document 07/11/20 11:24 LRN (Rec: 07/11/20 12:28 LRN [id number]) Sensation Evaluation Gross Sensation Gross Sensation Right LE Impaired Sensation Description Numbness Dermatome Impairments L2,L3,L4 Deep Tendon Reflex & Clonus Assessment Deep Tendon Reflex Right Achilles Deep Tendon Reflex 1+ Diminished Right Patellar Deep Tendon Reflex 2+ Normal PT-OP-J Posture/Palpation/Skin Start: 07/01/20 18:23 Freq: Status: Active Protocol: Document 07/11/20 11:24 LRN (Rec: 07/11/20 12:28 LRN [id number]) Posture Evaluation Comments Posture Comments Mild forward head. Increased lumbar lordosis. R shoulder depressed, R hip elevated. C-curve lower thoracic to sacrum with apex on left. Palpation Assessment Location Lumbar Spine Palpation Location PA glide Spinous process L4-L5 Palpation Findings Tenderness Palpation Details Pt denies tenderness at R Lumbar Transverse processes and facets joints with PA pressure. Low back Palpation Location Lumbar paraspinals Palpation Findings Soft Tissue Tightness,Muscle Guarding Palpation Details Right worse than left. PT-OP-K Range of Motion Start: 07/01/20 18:23 Freq: Status: Active Protocol: Document 07/11/20 11:24 LRN (Rec: 07/11/20 18:48 LRN [id number]) Lumbar Spine Range of Motion Lumbar Spine Active Degrees Testing Position Standing Flexion 35 Extension 14 Rotation Left 45 Rotation Right 20 Lateral Flexion Left 15 Lateral Flexion Right 10 Hip Goniometric Range of Motion Hip Left Passive Testing Position Supine Straight Leg Raise 50 Abduction 35 Internal Rotation 30 External Rotation 70 Comments Active SLR was 50 deg's. Right Passive Testing Position Supine Straight Leg Raise 40 Abduction 30 Internal Rotation 35 External Rotation 55 Comments Active SLR was 30 deg's. PT-OP-L Special Tests Start: 07/01/20 18:23 Freq: Status: Active Protocol: Document 07/11/20 11:24 LRN (Rec: 07/11/20 18:48 LRN [id number]) Special Tests Lumbar Spine Special Tests Vertical Spine Loading Test Results - Comments No change in R LE symptoms Straight Leg Raise Test Results + right Comments Hamstring tightness report bilaterally Manual Traction Test Results - Comments No change in R LE symptoms PT-OP-M Strength Start: 07/01/20 18:23 Freq: Status: Active Protocol: Document 10/03/20 09:13 LRN (Rec: 10/03/20 10:19 LRN [id number]) Trunk Strength Trunk Manual Muscle Testing Testing Position Sitting Flexion 5 Normal Extension 5 Normal Rotation Left 4+ Good+ Rotation Right 4+ Good+ Lateral Flexion Left 5 Normal Lateral Flexion Right 5 Normal Core Stabilization During LE MMT pt showed decreased core stability with trunk rot & lateral trunk flexion. Hip Strength Hip Manual Muscle Testing Left Comments All groups 5/5 Right Flexion (L2) 4+ Good+ Extension (S1) 4+ Good+ Abduction 5 Normal Adduction 4+ Good+ External Rotation 5 Normal Internal Rotation 5 Normal Knee Strength Knee Manual Muscle Testing Left Comments All groups 5/5 Right Comments All groups 5/5 Ankle/Foot Strength Ankle and Foot Manual Muscle Testing Left Comments All groups 5/5 Right Comments All groups 5/5 Toe Strength Toe Manual Muscle Testing Right Great Toe Extension 5 Normal PT-OP-Q Treatments Start: 07/01/20 18:23 Freq: Status: Active Protocol: Document 10/03/20 09:13 LRN (Rec: 10/03/20 10:19 LRN [id number]) Therapeutic Exercises Supine Exercises SLR Supine Exercise Name SLR Side bilateral Resistance Manual Comments MMT Prone Exercises Hip Ext Prone Exercise Name Hip Ext Side bilateral Resistance Manual Sidelying Exercises Hip AD Sidelying Exercise Name Hip AD/Core stab, R>L Side bilateral Resistance Manual Comments MMT Hip AB Sidelying Exercise Name Hip AB/Core stab Side bilateral Resistance Manual Comments MMT Sitting Exercises Hip ER/IR Sitting Exercise Name Hip ER/IR Side bilateral Resistance Manual Comments MMT Standing Exercises Trunk rot strengthening Standing Exercise Name Wood chop/Gold swing Reps/Minutes 5x eaach Lateral trunk strengthening Standing Exercise Name Resisted trunk, side stepping Resistance Lev 2 Reps/Minutes 10x 3ea Squats Standing Exercise Name Squats with UE's assist. Side bilateral sit to stands Standing Exercise Name R leg sit to stand Reps/Minutes 4' Comments Minor plop at end of sit. Self-Care/Home Management Treatment Education Patient Education Home Exercise Program Other Education Educated pt in areas to focus her HEP (R hip flex, ankles/ balance & trunk rotation/SB). Activities Self-Care/Home Management Activities Issued & reviewed HEP: trunk lateral and rotation strengthening. Issued white strap for use of TBand in door. PT-OP-R Modalities Start: 07/01/20 18:23 Freq: Status: Active Protocol: Document 10/03/20 09:13 LRN (Rec: 10/03/20 10:19 LRN [id number]) Electric Stimulation Electric Stimulation Interferential Current (IFC) Body Location lumbosacral Duration (Minutes) 15 Intensity 17 Target/Sweep Sweep Patient Position Hooklying Combined With Heat/Cold Hot Pack Hot Pack/Cold Pack Treatment Hot Pack Location Low Back Patient Position Hooklying Treatment Duration (minutes) 15 Comments Extra towel layer. PT-OP-T Assessment and Plan Start: 07/01/20 18:23 Freq: Status: Active Protocol: Document 10/03/20 09:13 LRN (Rec: 10/03/20 10:19 LRN [id number]) Physical Therapy Assessment Goals Three Impairment Dec'd core strength (not able to maintain core stability w/ LE resistance) Short Term Goal (STG) Pt will be educated in core stabilization program. STG Duration 08/08/20 (09/15/20: MET GOAL) Acid Tester Goal (LTG) Pt will be able to maintain core stability with resistance to the LE's resulting in decreased pain complaints with hiking/walking. (08/16/20: Core moderate to mildly stabilized with R LE resistance to flex, stabilized with LLE resistance to flex). LTG Duration 10/09/20 (10/03/20: MET GOAL) Two Impairment Decreased R LE strength Short Term Goal (STG) Increase R LE strength with pt able to SLS with confidence for no less than 30 secs. (09/02/20: R: 11 secs, L: 13 secs) STG Duration 09/10/19 (10/03/20: NOT MET GOAL) Acid Tester Goal (LTG) R LE strength of 5/5 with pt able to ambulate stairs with an alternating gait without fear of falling. (09/15/20: Pt feels confident going up/down steps with or without railing) LTG Duration 10/09/20 (09/15/20: MET GOAL) One Impairment Pt lacks appropriate self care HEP [facility] Goal (LTG) Pt will be independent in a self care HEP of flexibility and strengthening exercises. (09/15/20: HEP issued: Progressive Stability/Core strengthening program & Phase 1-3 of Abdominal Core Power Program (roll in/out program) 10/03/20: Issued trunk rot ( TBand) and lateral trunk flexor (miguel TBand) strengthening. LTG Duration 10/09/20 (10/03/20: MET GOAL ) Progress Towards Goals Progress Comments Goals mostly met, except for SLS of 30 secs. Assessment Summary Assessment Pt is a 70 year old female who presents today with reports of returning to trail hiking without symptoms of weakness, pain, or sensation changes in the R LE. She is ambulating stairs with a normal gait and no fear of falling. Her core strength is much improved but she should continue to work on strengthening with focus on her trunk lateral rotators and lateral flexors, hip flexors and ankles/balance. Her SLS is decreased but much improved . SLS (without shoes) is R: 11 secs, L: 13 secs (initial was R: 4 sec, L: 2 secs). Norms for ages 60-69 is 22.5 secs, and ages 70-79 is 14 secs. The pt has been educated on a self care HEP and is ready to continue on her HEP. Physical Therapy Plan Frequency and Duration Frequency of Treatment 2x/Week Duration of Treatment 3 months Plan of Care Start Date 07/11/20 Plan of Care End Date 10/09/20 Discharge Physical Therapy Discharge Reasons Goals Met Discharge Comments Pt's R lower leg sensation is returning and strength has returned to her lower extremity although she has a little weakness in her R hip flexors and Extensor Hallicus Longus. Her trunk strength has greatly improved but she demonstrates weakness as indicated in the assessment above. The pt was having some difficulty with dizziness when rolling side to side on the plinth; therefore I would recommend her seeing one of our vestibular specialists for assessment for possible vestibular dysfunction. Thank you for your referral.
== END 2020-10-05 08:02 | disposition home or self-care (01) ==
LOC: PHYS 09:00
PROVIDERS: Family Provider Internal Medicine; PCP Internal Medicine; Referring Provider Nurse Practitioner; Visit Provider Nurse Practitioner
DX: M51.16 Intervertebral disc disorders with radiculopathy, lumbar region (principal)
CPT/HCPCS: 97014; 97110; 97112; 97140; 97161; 97530; 97535; G0283

== ENCOUNTER → 2021-01-02 12:41 | Outpatient (CLI) | payer MEDICARE, OTHER, SELFPAY ==
--- NOTE | 2021-01-02 | DI.US.S_ITS ---
LIMITED ULTRASOUND OF LEFT BREAST: 01/02/2021 CLINICAL: Patient returns today to evaluate a focal asymmetry in the left breast. Comparison is made to exams dated: 01/02/2021 mammogram, 07/18/2020 ultrasound - [facility], 06/05/2019 mammogram - [facility], 07/18/2020 mammogram - [facility], and 07/08/2017 mammogram - [facility]. Color flow ultrasound of the left breast was performed. Leos scale images of the real-time examination were reviewed. There is a 0.5 cm x 0.4 cm x 0.5 cm oval cyst with a smooth internal wall in the left breast at 3 o'clock anterior depth. This oval cyst is hypoechoic with internal echoes. This abnormality is not significantly changed. There also is a 0.7 cm x 0.3 cm x 0.4 cm irregular area of fibrocystic tissue in the left breast at 3 o'clock in the retroareolar region. This irregular area of fibrocystic tissue is hypoechoic. Color flow imaging demonstrates that there is no vascularity present. IMPRESSION: PROBABLY BENIGN The 0.5 cm x 0.4 cm x 0.5 cm oval cyst in the left breast at 3 o'clock anterior depth is consistent with a complex cyst and is probably benign. The 0.7 cm x 0.3 cm x 0.4 cm irregular area of fibrocystic tissue in the left breast at 3 o'clock in the retroareolar region is consistent with a complicated cyst or fibrocystic change and is probably benign. A follow-up mammogram and an ultrasound in 6 months is recommended to demonstrate stability. This exam was interpreted at Station ID: [id number]. Electronically Signed By: Norman chandler/jere:01/05/2021 08:11:47 copy to: Dr. Sykes, Dr. Sykes, [facility], ph: [phone] letter sent: Followup Recommended Ultrasound BI-RADS: 3 Probably benign
--- NOTE | 2021-01-02 | DI.MG.S_ITS ---
UNILATERAL LEFT DIGITAL DIAGNOSTIC MAMMOGRAM 3D/2D SHORT-TERM FOLLOW-UP: 01/02/2021 CLINICAL: Short follow up. Comparison is made to exams dated: 07/18/2020 mammogram, 07/18/2020 [facility], 06/05/2019 mammogram, and 07/08/2017 mammogram - [facility]. The tissue of left breast is heterogeneously dense. This may lower the sensitivity of mammography. There is a global asymmetry in the left breast upper outer aspect middle depth. This is not significantly changed. There also are stable benign grouped calcifications in the left breast central to the nipple middle depth. No other significant masses or calcifications are seen in the breast. IMPRESSION: INCOMPLETE: NEEDS ADDITIONAL IMAGING EVALUATION Targeted ultrasound is recommended for follow up of ultrasound findings and will be performed immediately following this exam. The global asymmetry in the left breast upper outer aspect middle depth is probably benign. A follow-up mammogram in 6 months is recommended. This exam was interpreted at Station ID: [id number]. NOTE: For mammograms, a report in lay terms will be sent to the patient. Approximately 15% of breast malignancies will not be visualized mammographically. In the management of a palpable breast mass, a negative mammogram must not discourage biopsy of a clinically suspicious lesion. Electronically Signed By: Norman chandler/jere:01/05/2021 08:11:08 copy to: Dr. Sykes, Dr. Sykes, [facility], ph: [phone] ACR BI-RADS Category 0: Incomplete [id number]
== END ==
PROVIDERS: Family Provider Internal Medicine; PCP Internal Medicine; Referring Provider Internal Medicine; Visit Provider Internal Medicine
DX: N60.02 Solitary cyst of left breast (principal); R92.8 Other abnormal and inconclusive findings on diagnostic imaging of breast
CPT/HCPCS: 76642; 77065; G0279

== ENCOUNTER 2021-06-09 12:45 | Outpatient (RCR) | payer MEDICARE, OTHER, SELFPAY ==
--- NOTE | 2021-05-08 17:43 | PT.OIE ---
Current Diagnoses Other intervertebral disc displacement, lumbar region (05/08/21) Past Medical History (Last Reviewed 06/08/20 @ 08:34 by Master Vega DO) H/O breast biopsy H/O dilation and curettage H/O eye surgery Herniated nucleus pulposus, L3-4 right Lumbar radiculopathy Past Surgical History (Last Updated 06/08/20 @ 08:57 by Dea Murillo LPN) H/O breast biopsy H/O dilation and curettage H/O eye surgery Visit Care Team Role Provider Type Archana Jo MD Attending Provider Physician Primary Care Provider Referring Provider Specialty: Internal Medicine Address: [address] [place] [address] Email: Physical Therapy Initial Evaluation PT-OP-A Visit Information Start: 05/05/21 18:11 Freq: Status: Active Protocol: Document 05/08/21 09:01 LRN (Rec: 05/08/21 09:53 LRN [id number]) Out-Patient Physical Therapy Visit Information Visit Information Visit Type Initial Evaluation Visit Start Time 09:00 Visit Stop Time 09:52 Total Visit Minutes 52 Visit Number 1 Evaluation Information Evaluation Date 05/08/21 Precautions Precautions History of back pain with intial injury 05/2020. PT-OP-B Current Condition Start: 05/05/21 18:11 Freq: Status: Active Protocol: Document 05/08/21 09:01 LRN (Rec: 05/08/21 09:53 LRN [id number]) Current Condition History of Current Condition Onset Date December 2020 Current Complaints Pain sacral area and sensation changes in R LE and some in L LE. History of Current Condition States over the summer was doing gardening and is still working 72 hrs a week. Feels after the last rehab session ( 2019), had lingering tingling/ numbness in the R leg but no back pain. States she did the ex's for awhile but did not continue. Now has pain & more numbness in the lower R leg and now some in the L leg. 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 Currently she drives to [facility] for her spouse's cancer therapy. She is his primary caregiver. Walking and standing makes her feel better. Sitting and lying down makes it worse unless she has a support under the knees & no support under the back. Since her last physical therapy she has lost 10 pounds. Occasionally takes Tylenol for pain. 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 She had disc bulges from T12 to L4 . There was a disc fragment above L3-L4 and imipinging on the right L3-L4 impringing on the L3 & L4 nerve root. L4-L5 disc height loss with protrusion deviating the left L5 nerve root posteriorly. L5 vertebral body partially sacralized. Future Testing and Treatments Planned None Developmental History Developmental History Initial injury in May 2020 when she picked up a 200# object in awkward position. Treatment Goals Patient/Caregiver Goals Pt goal is: - to learn what she needs to to and priority to fix. Overall her back is not worse than when she originally came to therapy. - strengthen the core to improve tolerance (decrease pain) to driving 1 hour or greater distance . - reduce symptoms of pain and sensation changes with sitting 1 hour or more. Prior Functional Status Baseline Function- ADL's Independent Baseline Function- Mobility Independent Baseline Function- Gait Walking daily, Walks 50,000 steps a week Baseline Function- Work/School Working 30-70 hours per week, getting up to walk around every hour. Baseline Function- Recreation/Hobbies Gardening, progressively poor mechanics (bending at hips to crab picker objects and sometimes heavy rocks). Baseline Function- Other Able to lie at night with legs straight without back pain. Current Functional Impairments (Reported) Functional Limitations- ADL's Modified independence with daily activities due to limited mobility. Functional Limitations- Mobility/Gait No change with walking exercise ability Functional Limitations- Work/School No change with work hours. Functional Limitations- Recreation/ Limited gardening, now has Hobbies help. Functional Limitations- Other Sleeps with support under knees. Personal Factors Other Personal Factors That May Effect Caregiver for spouse with Therapy/Recovery monthly driving to [place] for doctor appt. & 3 doctor appointments per month locally . 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 Breast negative biopsies (will be checking in JUN 2021). PT-OP-C Subjective Start: 05/05/21 18:11 Freq: Status: Active Protocol: Document 05/08/21 09:01 LRN (Rec: 05/08/21 09:53 LRN [id number]) Patient Questionnaires Oswestry Low Back Index Oswestry Score 13 Oswestry Impairment 1 to 19% Impaired (Score 1-19) OP-PT Pain Assessment Pain Assessment Grid Paper Pain Assessment Grid Completed Yes Location Low back/sacral region Pain Location Details Sacral region with pain ranging 4-9/10 Intensity 9 Scale Used Numeric (0 - 10) Description Aching,Dull,Phantom,Sharp Description- Other Pain worse the next day ( initially shooting pain, not anymore) Frequency Intermittent Other Pain Aggravating Factors Arching back R lower extremity Pain Location Details Numbness/tingling in Lower leg & sometimes in L lower leg Scale Used Numeric (0 - 10) Description- Other Numbness/tingling R>L Frequency Intermittent Other Pain Alleviating Factors Cream in feet. PT-OP-J Posture/Palpation/Skin Start: 05/05/21 18:11 Freq: Status: Active Protocol: Document 05/08/21 09:01 LRN (Rec: 05/08/21 09:53 [facility] [id number]) Posture Evaluation Position Standing Head/C-Spine Posture Forward Head T-Spine Posture Increased Kyphosis Shoulder Posture (R) Elevated Pelvis Posture (R) Iliac Crest Superior,(L) PSIS Posterior,(L) PSIS Inferior Weight Distribution Balanced Ankle/Foot Posture (L) Calcaneal Inversion,(R) Calcaneal Inversion Foot Arch (L) Low Arch,(R) Low Arch Toe Posture (L) Clawed Toes,(R) Clawed Toes Comments Posture Comments R PSIS is high and deep R leg long, in long-sit: R leg long. PT-OP-K Range of Motion Start: 05/05/21 18:11 Freq: Status: Active Protocol: Document 05/08/21 09:01 LRN (Rec: 05/08/21 09:53 [facility] [id number]) Lumbar Spine Range of Motion Lumbar Spine Active Degrees Testing Position Standing Flexion 50 Extension 15 Comments Flexion: 50 deg's with 30 deg 's hip flexion. Extension: 15 deg's with 5 deg 's hip extension Hip Goniometric Range of Motion Hip Right Passive Hip ROM WFL No Testing Position Supine Straight Leg Raise 55 Internal Rotation 40 External Rotation 55 Left Passive Hip ROM WFL Yes Testing Position Supine Straight Leg Raise 65 Internal Rotation 25 External Rotation 55 PT-OP-M Strength Start: 05/05/21 18:11 Freq: Status: Active Protocol: Document 05/08/21 09:01 LRN (Rec: 05/08/21 09:53 LRN [id number]) Hip Strength Hip Manual Muscle Testing Right Flexion (L2) 5 Normal Abduction 4 Good Adduction 3- Fair- External Rotation 3+ Fair+ Internal Rotation 3+ Fair+ Left Comments Generally 5/5 Knee Strength Knee Manual Muscle Testing Right Flexion (S2) 4 Good Extension (L3) 4 Good Left Comments Generally 5/5 Ankle/Foot Strength Ankle and Foot Manual Muscle Testing Right Dorsiflexion (L4) 5 Normal Plantarflexion (S1) 4 Good Inversion 4 Good Eversion (S1) 4 Good Left Comments Generally 5/5 PT-OP-Q Treatments Start: 05/05/21 18:11 Freq: Status: Active Protocol: Document 05/08/21 09:01 LRN (Rec: 05/08/21 09:53 LRN [id number]) Self-Care/Home Management Treatment Education Other Education Educated & discussed results of evaluation. Discussed goals and plan of care, pt agreeable. Activities Self-Care/Home Management Activities Reviewed pt's old therapy HEP and restarted pt on: hamstring & KTC stretch, cat/camel, ankle strengthening & bridging . PT-OP-T Assessment and Plan Start: 05/05/21 18:11 Freq: Status: Active Protocol: Document 05/08/21 09:01 LRN (Rec: 05/08/21 09:53 LRN [id number]) Physical Therapy Assessment Rehab Potential Rehabilitation Potential Good Evaluation Complexity Number of Personal Factors/Comorbidities 1-2 Number of Body Systems Impaired 4 or More Clinical Presentation at Evaluation Evolving Impairments Impairments Activity Tolerance,Pain,ROM, Sensation,Strength,Transfers Other Concerns Barriers to Rehabilitation Pt is primary caregiver to spouse who is undergoing medical treatments for cancer. Goals Three Impairment Poor tolerance to sitting > 1 hour due to pain Senior Care Goal (LTG) Reduce symptoms of pain and sensation changes with sitting 1 hour or more for relaxation at home. LTG Duration 07/07/21 Two Impairment Decreased core stability and asymmetry of pelvis. Impairment Pt not able to maintain core stability with use of R LE. R innominate anteriorly rotated and elevated R iliac creast. Short Term Goal (STG) Pt will be educated in proper posturing and body mechanics and self treatment of anteriorly rotated R innominate or normalize mechanical dysfunction. STG Duration 05/26/21 Senior Care Goal (LTG) Improve core/pelvic stability to improve tolerance (decrease pain) to make driving 1 hour or greater distance tolerable at end of drive. LTG Duration 07/07/21 One Impairment Pt not on a self care HEP Short Term Goal (STG) Pt will be able to demonstrate proper self correction of SIJ dysfunction. STG Duration 05/26/21 Senior Care Goal (LTG) Pt will be independent with a HEP and will be consistent with ex's minimally 3x/week. LTG Duration 07/07/21 Assessment Summary Assessment Pt presents with soft tissue dysfunction of the low back and hips bilaterally (R worse than L). She has decreased mobility of the low back and hips (primarily hamstrings & hip rotators), and has weakness of her R LE and decreased stability of the core/pelvis (R). She demonstrates fair to good body mechanics, but would benefit from body mechanics training. The pt did not have LBP today ; therefore I was unable to determine if use of traction would be helpful. With involvement of her soft tissue use of modalities to decrease muscle tone would be helpful. The pt will benefit from skilled phyiscal therapy to achieve the above stated goals . Physical Therapy Plan Frequency and Duration Frequency of Treatment 2x/Week Plan of Care Start Date 05/08/21 Plan of Care End Date 07/07/21 Therapeutic Interventions Therapeutic Interventions Balance Training,Home Exercise Program,Joint Mobilizations, Manual Therapy,Neuromuscular Re-education,Patient/Caregiver Education,Self-Care/Home Management,Soft Tissue Mobilization,Taping, Therapeutic Activities, Therapeutic Exercises Modalities Cold Pack/Ice Massage,Electric Stimulation,Hot Packs, Traction- Mechanical, Ultrasound Next Visit Focus/Plan Next Note Type Treatment Note Next Visit Plan Review proper posture and proper body mechanics. STM of QL and stretch to R Iliacus & Piriformis. Review LE neural stretch if pain controlled. Add hip IR (L>R) and hip ER stretch. Progress trunk EXTENSION exercises. End with MH/IFES [Lumbar region]. Correction (if present) for an elevated R iliac crest & R anteriorly rotated innominate. Rehab for SIJ dysfunction & probable Lumbar neural involvement. Manual Lumbar or R LE traction if LBP or sensation changes in LE's. Progress R LE (hip/knee/ankle) strengthening and core/pelvic stabilization when appropriate.
--- NOTE | 2021-05-12 16:30 | PT.OTN ---
Current Diagnoses Postural kyphosis, thoracic region (05/12/21) Flatback syndrome, lumbosacral region (05/12/21) Other intervertebral disc displacement, lumbar region (05/12/21) Muscle weakness (generalized) (05/12/21) Physical Therapy Treatment Note PT-OP-A Visit Information Start: 05/05/21 18:11 Freq: Status: Active Protocol: Document 05/12/21 13:34 LRN (Rec: 05/12/21 14:24 LRN [id number]) Out-Patient Physical Therapy Visit Information Visit Information Visit Type Treatment Note Visit Start Time 13:34 Visit Stop Time 14:22 Total Visit Minutes 48 Visit Number 2 Evaluation Information Evaluation Date 05/08/21 Precautions Precautions History of back pain with intial injury 05/2020. PT-OP-B Current Condition Start: 05/05/21 18:11 Freq: Status: Active Protocol: Document 05/08/21 09:01 LRN (Rec: 05/08/21 09:53 LRN [id number]) Current Condition History of Current Condition Onset Date December 2020 Current Complaints Pain sacral area and sensation changes in R LE and some in L LE. History of Current Condition States over the summer was doing gardening and is still working 72 hrs a week. Feels after the last rehab session ( 2019), had lingering tingling/ numbness in the R leg but no back pain. States she did the ex's for awhile but did not continue. Now has pain & more numbness in the lower R leg and now some in the L leg. 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 Currently she drives to [facility] for her spouse's cancer therapy. She is his primary caregiver. Walking and standing makes her feel better. Sitting and lying down makes it worse unless she has a support under the knees & no support under the back. Since her last physical therapy she has lost 10 pounds. Occasionally takes Tylenol for pain. 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 She had disc bulges from T12 to L4 . There was a disc fragment above L3-L4 and imipinging on the right L3-L4 impringing on the L3 & L4 nerve root. L4-L5 disc height loss with protrusion deviating the left L5 nerve root posteriorly. L5 vertebral body partially sacralized. Future Testing and Treatments Planned None Developmental History Developmental History Initial injury in May 2020 when she picked up a 200# object in awkward position. Treatment Goals Patient/Caregiver Goals Pt goal is: - to learn what she needs to to and priority to fix. Overall her back is not worse than when she originally came to therapy. - strengthen the core to improve tolerance (decrease pain) to driving 1 hour or greater distance . - reduce symptoms of pain and sensation changes with sitting 1 hour or more. Prior Functional Status Baseline Function- ADL's Independent Baseline Function- Mobility Independent Baseline Function- Gait Walking daily, Walks 50,000 steps a week Baseline Function- Work/School Working 30-70 hours per week, getting up to walk around every hour. Baseline Function- Recreation/Hobbies Gardening, progressively poor mechanics (bending at hips to excelsior picker objects and sometimes heavy rocks). Baseline Function- Other Able to lie at night with legs straight without back pain. Current Functional Impairments (Reported) Functional Limitations- ADL's Modified independence with daily activities due to limited mobility. Functional Limitations- Mobility/Gait No change with walking exercise ability Functional Limitations- Work/School No change with work hours. Functional Limitations- Recreation/ Limited gardening, now has Hobbies help. Functional Limitations- Other Sleeps with support under knees. Personal Factors Other Personal Factors That May Effect Caregiver for spouse with Therapy/Recovery monthly driving to [place] for doctor appt. & 3 doctor appointments per month locally . 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 Breast negative biopsies (will be checking in JUN 2021). PT-OP-C Subjective Start: 05/05/21 18:11 Freq: Status: Active Protocol: Document 05/12/21 13:34 LRN (Rec: 05/12/21 14:24 LRN [id number]) OP-PT Subjective Patient Comments Patient Comments Wants to be better cardio-fit. PT-OP-D Balance Start: 05/05/21 18:11 Freq: Status: Active Protocol: Document 05/12/21 13:34 LRN (Rec: 05/12/21 14:24 LRN [id number]) Balance Tests Single Limb Standing Single Limb- Right 4 Single Limb- Left 4 PT-OP-J Posture/Palpation/Skin Start: 05/05/21 18:11 Freq: Status: Active Protocol: Document 05/08/21 09:01 LRN (Rec: 05/08/21 09:53 LRN [id number]) Posture Evaluation Position Standing Head/C-Spine Posture Forward Head T-Spine Posture Increased Kyphosis Shoulder Posture (R) Elevated Pelvis Posture (R) Iliac Crest Superior,(L) PSIS Posterior,(L) PSIS Inferior Weight Distribution Balanced Ankle/Foot Posture (L) Calcaneal Inversion,(R) Calcaneal Inversion Foot Arch (L) Low Arch,(R) Low Arch Toe Posture (L) Clawed Toes,(R) Clawed Toes Comments Posture Comments R PSIS is high and deep R leg long, in long-sit: R leg long. PT-OP-K Range of Motion Start: 05/05/21 18:11 Freq: Status: Active Protocol: Document 05/08/21 09:01 LRN (Rec: 05/08/21 09:53 LRN [id number]) Lumbar Spine Range of Motion Lumbar Spine Active Degrees Testing Position Standing Flexion 50 Extension 15 Comments Flexion: 50 deg's with 30 deg 's hip flexion. Extension: 15 deg's with 5 deg 's hip extension Hip Goniometric Range of Motion Hip Right Passive Hip ROM WFL No Testing Position Supine Straight Leg Raise 55 Internal Rotation 40 External Rotation 55 Left Passive Hip ROM WFL Yes Testing Position Supine Straight Leg Raise 65 Internal Rotation 25 External Rotation 55 PT-OP-M Strength Start: 05/05/21 18:11 Freq: Status: Active Protocol: Document 05/08/21 09:01 LRN (Rec: 05/08/21 09:53 LRN [id number]) Hip Strength Hip Manual Muscle Testing Right Flexion (L2) 5 Normal Abduction 4 Good Adduction 3- Fair- External Rotation 3+ Fair+ Internal Rotation 3+ Fair+ Left Comments Generally 5/5 Knee Strength Knee Manual Muscle Testing Right Flexion (S2) 4 Good Extension (L3) 4 Good Left Comments Generally 5/5 Ankle/Foot Strength Ankle and Foot Manual Muscle Testing Right Dorsiflexion (L4) 5 Normal Plantarflexion (S1) 4 Good Inversion 4 Good Eversion (S1) 4 Good Left Comments Generally 5/5 PT-OP-Q Treatments Start: 05/05/21 18:11 Freq: Status: Active Protocol: Document 05/12/21 13:34 LRN (Rec: 05/12/21 14:24 LRN [id number]) Therapeutic Exercises Supine Exercises TA tightening Supine Exercise Name TA tightening educating, strengthening, & awareness training Side bilateral Reps/Minutes 12' David Hip AD Supine Exercise Name David Hip AD Side bilateral Reps/Minutes 4' Comments Extra time for training for symmetrical contraction of hip AD's Manual Therapy Treatment Soft Tissue Mobilization R SIJ Body Location Correction for a R anteriorly rotated innominate Mobilization Type Myofascial Release Body Position Supine Manual Traction Lumbar Details lumbar traction Body Position Supine Reps/Duration 8' Comments Decreased numbness in the R lower leg after traction. Neuro Re-Education Treatment Balance Activities SLS Details SLS Surface Level Reps/Duration 3' Self-Care/Home Management Treatment Education Other Education Reviewed proper posture and proper body mechanics. Activities Self-Care/Home Management Activities I/S pt to do TB ankle ex's from previous therapy rehab program. Issued & reviewed HEP for SI joint correction, but I/S pt to not do the joint correction technique (unless needed), but only the David hip AD, Bridging with TA & DKTC stretch. Discussed general health of exercise. PT-OP-T Assessment and Plan Start: 05/05/21 18:11 Freq: Status: Active Protocol: Document 05/12/21 13:34 LRN (Rec: 05/12/21 14:24 LRN [id number]) Physical Therapy Assessment Goals Three Impairment Poor tolerance to sitting > 1 hour due to pain Wrinkle Chaser Goal (LTG) Reduce symptoms of pain and sensation changes with sitting 1 hour or more for relaxation at home. LTG Duration 07/07/21 Two Impairment Decreased core stability and asymmetry of pelvis. Impairment Pt not able to maintain core stability with use of R LE. R innominate anteriorly rotated and elevated R iliac creast. Short Term Goal (STG) Pt will be educated in proper posturing and body mechanics and self treatment of anteriorly rotated R innominate or normalize mechanical dysfunction. (05/12/21: Pt educated in proper posturing and body mechanics; ex's given to stabilize R innominate anterior rotation after correction). STG Duration 05/26/21 (05/12/21: Progressed Wrinkle Chaser Goal (LTG) Improve core/pelvic stability to improve tolerance (decrease pain) to make driving 1 hour or greater distance tolerable at end of drive. LTG Duration 07/07/21 One Impairment Pt not on a self care HEP Short Term Goal (STG) Pt will be able to demonstrate proper self correction of SIJ dysfunction. STG Duration 05/26/21 Wrinkle Chaser Goal (LTG) Pt will be independent with a HEP and will be consistent with ex's minimally 3x/week. LTG Duration 07/07/21 Assessment Summary Assessment Pt was very receptive to posture & proper body mechanics training. She demonstrates R SIJ dysfunction (mild anteriorly rotated R innominate) & probable Lumbar neural involvement with a decrease in neural symptoms with manual lumbar traction. Pt did not appear to have elevated iliac crest. Pelvic position normalized after JMT of R SIJ. Held teaching pt self correction technique to see if further correction needed. Pt may be stabilized with PSIS /Ischial rebalancing. Physical Therapy Plan Frequency and Duration Frequency of Treatment 2x/Week Plan of Care Start Date 05/08/21 Plan of Care End Date 07/07/21 Next Visit Focus/Plan Next Note Type Treatment Note Next Visit Plan Review: SIJ/TA stab ex's. STM of QL and stretch to R Iliacus & Piriformis. Add hip IR (L>R) and hip ER stretch. Cont Manual Lumbar or R LE traction if improved sensation in LE's. Progress R LE (hip/knee/ankle) strengthening. Review LE neural stretch if pain controlled. Progress trunk EXTENSION exercises. End with MH/IFES [Lumbar region]. .
--- NOTE | 2021-05-23 17:42 | PT.OTN ---
Current Diagnoses Postural kyphosis, thoracic region (05/23/21) Flatback syndrome, lumbosacral region (05/23/21) Other intervertebral disc displacement, lumbar region (05/23/21) Muscle weakness (generalized) (05/23/21) Physical Therapy Treatment Note PT-OP-A Visit Information Start: 05/05/21 18:11 Freq: Status: Active Protocol: Document 05/23/21 13:35 LRN (Rec: 05/23/21 14:18 LRN [id number]) Out-Patient Physical Therapy Visit Information Visit Information Visit Type Treatment Note Visit Start Time 13:35 Visit Stop Time 14:13 Total Visit Minutes 38 Visit Number 3 Evaluation Information Evaluation Date 05/08/21 Precautions Precautions History of back pain with intial injury 05/2020. PT-OP-B Current Condition Start: 05/05/21 18:11 Freq: Status: Active Protocol: Document 05/08/21 09:01 LRN (Rec: 05/08/21 09:53 LRN [id number]) Current Condition History of Current Condition Onset Date December 2020 Current Complaints Pain sacral area and sensation changes in R LE and some in L LE. History of Current Condition States over the summer was doing gardening and is still working 72 hrs a week. Feels after the last rehab session ( 2019), had lingering tingling/ numbness in the R leg but no back pain. States she did the ex's for awhile but did not continue. Now has pain & more numbness in the lower R leg and now some in the L leg. 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 Currently she drives to [facility] for her spouse's cancer therapy. She is his primary caregiver. Walking and standing makes her feel better. Sitting and lying down makes it worse unless she has a support under the knees & no support under the back. Since her last physical therapy she has lost 10 pounds. Occasionally takes Tylenol for pain. 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 She had disc bulges from T12 to L4 . There was a disc fragment above L3-L4 and imipinging on the right L3-L4 impringing on the L3 & L4 nerve root. L4-L5 disc height loss with protrusion deviating the left L5 nerve root posteriorly. L5 vertebral body partially sacralized. Future Testing and Treatments Planned None Developmental History Developmental History Initial injury in May 2020 when she picked up a 200# object in awkward position. Treatment Goals Patient/Caregiver Goals Pt goal is: - to learn what she needs to to and priority to fix. Overall her back is not worse than when she originally came to therapy. - strengthen the core to improve tolerance (decrease pain) to driving 1 hour or greater distance . - reduce symptoms of pain and sensation changes with sitting 1 hour or more. Prior Functional Status Baseline Function- ADL's Independent Baseline Function- Mobility Independent Baseline Function- Gait Walking daily, Walks 50,000 steps a week Baseline Function- Work/School Working 30-70 hours per week, getting up to walk around every hour. Baseline Function- Recreation/Hobbies Gardening, progressively poor mechanics (bending at hips to order picker objects and sometimes heavy rocks). Baseline Function- Other Able to lie at night with legs straight without back pain. Current Functional Impairments (Reported) Functional Limitations- ADL's Modified independence with daily activities due to limited mobility. Functional Limitations- Mobility/Gait No change with walking exercise ability Functional Limitations- Work/School No change with work hours. Functional Limitations- Recreation/ Limited gardening, now has Hobbies help. Functional Limitations- Other Sleeps with support under knees. Personal Factors Other Personal Factors That May Effect Caregiver for spouse with Therapy/Recovery monthly driving to [place] for doctor appt. & 3 doctor appointments per month locally . 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 Breast negative biopsies (will be checking in JUN 2021). PT-OP-C Subjective Start: 05/05/21 18:11 Freq: Status: Active Protocol: Document 05/23/21 13:35 LRN (Rec: 05/23/21 14:18 LRN [id number]) OP-PT Subjective Patient Comments Patient Comments Doing pretty good, not doing exercises. Having more cramps in legs, more in R than L. The calf cramps. PT-OP-D Balance Start: 05/05/21 18:11 Freq: Status: Active Protocol: Document 05/12/21 13:34 LRN (Rec: 05/12/21 14:24 LRN [id number]) Balance Tests Single Limb Standing Single Limb- Right 4 Single Limb- Left 4 PT-OP-J Posture/Palpation/Skin Start: 05/05/21 18:11 Freq: Status: Active Protocol: Document 05/08/21 09:01 LRN (Rec: 05/08/21 09:53 LRN [id number]) Posture Evaluation Position Standing Head/C-Spine Posture Forward Head T-Spine Posture Increased Kyphosis Shoulder Posture (R) Elevated Pelvis Posture (R) Iliac Crest Superior,(L) PSIS Posterior,(L) PSIS Inferior Weight Distribution Balanced Ankle/Foot Posture (L) Calcaneal Inversion,(R) Calcaneal Inversion Foot Arch (L) Low Arch,(R) Low Arch Toe Posture (L) Clawed Toes,(R) Clawed Toes Comments Posture Comments R PSIS is high and deep R leg long, in long-sit: R leg long. PT-OP-K Range of Motion Start: 05/05/21 18:11 Freq: Status: Active Protocol: Document 05/08/21 09:01 LRN (Rec: 05/08/21 09:53 LRN [id number]) Lumbar Spine Range of Motion Lumbar Spine Active Degrees Testing Position Standing Flexion 50 Extension 15 Comments Flexion: 50 deg's with 30 deg 's hip flexion. Extension: 15 deg's with 5 deg 's hip extension Hip Goniometric Range of Motion Hip Right Passive Hip ROM WFL No Testing Position Supine Straight Leg Raise 55 Internal Rotation 40 External Rotation 55 Left Passive Hip ROM WFL Yes Testing Position Supine Straight Leg Raise 65 Internal Rotation 25 External Rotation 55 PT-OP-M Strength Start: 05/05/21 18:11 Freq: Status: Active Protocol: Document 05/08/21 09:01 LRN (Rec: 05/08/21 09:53 LR [id number]) Hip Strength Hip Manual Muscle Testing Right Flexion (L2) 5 Normal Abduction 4 Good Adduction 3- Fair- External Rotation 3+ Fair+ Internal Rotation 3+ Fair+ Left Comments Generally 5/5 Knee Strength Knee Manual Muscle Testing Right Flexion (S2) 4 Good Extension (L3) 4 Good Left Comments Generally 5/5 Ankle/Foot Strength Ankle and Foot Manual Muscle Testing Right Dorsiflexion (L4) 5 Normal Plantarflexion (S1) 4 Good Inversion 4 Good Eversion (S1) 4 Good Left Comments Generally 5/5 PT-OP-Q Treatments Start: 05/05/21 18:11 Freq: Status: Active Protocol: Document 05/23/21 13:35 LRN (Rec: 05/23/21 14:18 LRN [id number]) Therapeutic Exercises Supine Exercises Lateral hip stretch Supine Exercise Name Reviewed for HEP Side bilateral Reps/Minutes 2' TA heel slides Supine Exercise Name TA heel slides - HEP Side bilateral Reps/Minutes 4' DKTC stretch Supine Exercise Name DKTC stretvch Reps/Minutes 10 x 6 Comments V. cuing needed for pt to hold stretch 10 Bridging Supine Exercise Name Bridging Reps/Minutes 10x Comments Extra time for training of timing and holding. R Iliopsoas stretch Supine Exercise Name R Iliopsoas stretch f/b active stretch - HEP Side right Reps/Minutes 5' TA tightening Supine Exercise Name TA tightening awareness training Side bilateral Reps/Minutes 8' Standing Exercises Iliopsoas stretch Standing Exercise Name Lunge into wall Side bilateral Reps/Minutes 3' Comments Extra time to determine maximal stretch Manual Therapy Treatment Soft Tissue Mobilization QL Body Location QL stretch Mobilization Type Myofascial Release Intensity/Depth Moderate Body Position Supine Comments Discussed how pt could do at home. R SIJ Body Location Correction for a R inflared innominate Mobilization Type Myofascial Release Body Position Supine Self-Care/Home Management Treatment Education Patient Education Home Exercise Program,Pain Management Other Education Discussed at length possible reasons for muscle cramping at night. Pt to make sure she has enough dietary Na, K, & Ca , and will hydrate and do calf stretches. Activities Self-Care/Home Management Activities Issued & reviewed HEP: Piriformis/lateral hip stretch & supine/standing Iliopsoas stretch. PT-OP-T Assessment and Plan Start: 05/05/21 18:11 Freq: Status: Active Protocol: Document 05/23/21 13:35 LRN (Rec: 05/23/21 14:18 LRN [id number]) Physical Therapy Assessment Assessment Summary Assessment Pt not consistent with HEP this past week and is experiencing increased muscle cramps in lower leg mostly at night. Pt appears to have a good understanding of changes she can make to help decrease cramps (supplements, hydration , stretching) Physical Therapy Plan Frequency and Duration Frequency of Treatment 2x/Week Plan of Care Start Date 05/08/21 Plan of Care End Date 07/07/21 Next Visit Focus/Plan Next Note Type Treatment Note Next Visit Plan Eliminate DKTC stretch if increase in cramps or worsening of sensatioin symptoms occur. Progress SIJ/ TA stab ex's. Assess response to STM of QL and stretch to R Iliacus & Piriformis. Review hip IR (L>R) and hip ER stretch. Cont Manual Lumbar or R LE traction if improved sensation in LE's. Progress R LE (hip/knee/ankle) strengthening. Review LE neural stretch if pain controlled. Progress trunk EXTENSION exercises. End with MH/IFES [Lumbar region].
--- NOTE | 2021-06-02 16:36 | PT.OTN ---
Current Diagnoses Postural kyphosis, thoracic region (06/02/21) Flatback syndrome, lumbosacral region (06/02/21) Other intervertebral disc displacement, lumbar region (06/02/21) Muscle weakness (generalized) (06/02/21) Physical Therapy Treatment Note PT-OP-A Visit Information Start: 05/05/21 18:11 Freq: Status: Active Protocol: Document 06/02/21 12:54 LRN (Rec: 06/02/21 13:36 LRN [id number]) Out-Patient Physical Therapy Visit Information Visit Information Visit Type Treatment Note Visit Start Time 12:54 Visit Stop Time 13:33 Total Visit Minutes 39 Visit Number 4 Evaluation Information Evaluation Date 05/08/21 Precautions Precautions History of back pain with intial injury 05/2020. PT-OP-B Current Condition Start: 05/05/21 18:11 Freq: Status: Active Protocol: Document 05/08/21 09:01 LRN (Rec: 05/08/21 09:53 LRN [id number]) Current Condition History of Current Condition Onset Date December 2020 Current Complaints Pain sacral area and sensation changes in R LE and some in L LE. History of Current Condition States over the summer was doing gardening and is still working 72 hrs a week. Feels after the last rehab session ( 2019), had lingering tingling/ numbness in the R leg but no back pain. States she did the ex's for awhile but did not continue. Now has pain & more numbness in the lower R leg and now some in the L leg. 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 Currently she drives to [facility] for her spouse's cancer therapy. She is his primary caregiver. Walking and standing makes her feel better. Sitting and lying down makes it worse unless she has a support under the knees & no support under the back. Since her last physical therapy she has lost 10 pounds. Occasionally takes Tylenol for pain. 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 She had disc bulges from T12 to L4 . There was a disc fragment above L3-L4 and imipinging on the right L3-L4 impringing on the L3 & L4 nerve root. L4-L5 disc height loss with protrusion deviating the left L5 nerve root posteriorly. L5 vertebral body partially sacralized. Future Testing and Treatments Planned None Developmental History Developmental History Initial injury in May 2020 when she picked up a 200# object in awkward position. Treatment Goals Patient/Caregiver Goals Pt goal is: - to learn what she needs to to and priority to fix. Overall her back is not worse than when she originally came to therapy. - strengthen the core to improve tolerance (decrease pain) to driving 1 hour or greater distance . - reduce symptoms of pain and sensation changes with sitting 1 hour or more. Prior Functional Status Baseline Function- ADL's Independent Baseline Function- Mobility Independent Baseline Function- Gait Walking daily, Walks 50,000 steps a week Baseline Function- Work/School Working 30-70 hours per week, getting up to walk around every hour. Baseline Function- Recreation/Hobbies Gardening, progressively poor mechanics (bending at hips to nut picker objects and sometimes heavy rocks). Baseline Function- Other Able to lie at night with legs straight without back pain. Current Functional Impairments (Reported) Functional Limitations- ADL's Modified independence with daily activities due to limited mobility. Functional Limitations- Mobility/Gait No change with walking exercise ability Functional Limitations- Work/School No change with work hours. Functional Limitations- Recreation/ Limited gardening, now has Hobbies help. Functional Limitations- Other Sleeps with support under knees. Personal Factors Other Personal Factors That May Effect Caregiver for spouse with Therapy/Recovery monthly driving to [place] for doctor appt. & 3 doctor appointments per month locally . 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 Breast negative biopsies (will be checking in JUN 2021). PT-OP-C Subjective Start: 05/05/21 18:11 Freq: Status: Active Protocol: Document 06/02/21 12:54 LRN (Rec: 06/02/21 13:36 LRN [id number]) OP-PT Subjective Patient Comments Patient Comments Doing pretty well. Numbness comes/goes. Currently no numnbess, having cramp in L leg, not the problem leg. Rubs feet because sometimes gets tingling in toes (was present pre-injury). Drinking more water and walking more, so muscle cramping is 50% less . PT-OP-D Balance Start: 05/05/21 18:11 Freq: Status: Active Protocol: Document 05/12/21 13:34 LRN (Rec: 05/12/21 14:24 LRN [id number]) Balance Tests Single Limb Standing Single Limb- Right 4 Single Limb- Left 4 PT-OP-J Posture/Palpation/Skin Start: 05/05/21 18:11 Freq: Status: Active Protocol: Document 05/08/21 09:01 LRN (Rec: 05/08/21 09:53 LRN [id number]) Posture Evaluation Position Standing Head/C-Spine Posture Forward Head T-Spine Posture Increased Kyphosis Shoulder Posture (R) Elevated Pelvis Posture (R) Iliac Crest Superior,(L) PSIS Posterior,(L) PSIS Inferior Weight Distribution Balanced Ankle/Foot Posture (L) Calcaneal Inversion,(R) Calcaneal Inversion Foot Arch (L) Low Arch,(R) Low Arch Toe Posture (L) Clawed Toes,(R) Clawed Toes Comments Posture Comments R PSIS is high and deep R leg long, in long-sit: R leg long. PT-OP-K Range of Motion Start: 05/05/21 18:11 Freq: Status: Active Protocol: Document 05/08/21 09:01 LRN (Rec: 05/08/21 09:53 LRN [id number]) Lumbar Spine Range of Motion Lumbar Spine Active Degrees Testing Position Standing Flexion 50 Extension 15 Comments Flexion: 50 deg's with 30 deg 's hip flexion. Extension: 15 deg's with 5 deg 's hip extension Hip Goniometric Range of Motion Hip Right Passive Hip ROM WFL No Testing Position Supine Straight Leg Raise 55 Internal Rotation 40 External Rotation 55 Left Passive Hip ROM WFL Yes Testing Position Supine Straight Leg Raise 65 Internal Rotation 25 External Rotation 55 PT-OP-M Strength Start: 05/05/21 18:11 Freq: Status: Active Protocol: Document 05/08/21 09:01 LRN (Rec: 05/08/21 09:53 LRN [id number]) Hip Strength Hip Manual Muscle Testing Right Flexion (L2) 5 Normal Abduction 4 Good Adduction 3- Fair- External Rotation 3+ Fair+ Internal Rotation 3+ Fair+ Left Comments Generally 5/5 Knee Strength Knee Manual Muscle Testing Right Flexion (S2) 4 Good Extension (L3) 4 Good Left Comments Generally 5/5 Ankle/Foot Strength Ankle and Foot Manual Muscle Testing Right Dorsiflexion (L4) 5 Normal Plantarflexion (S1) 4 Good Inversion 4 Good Eversion (S1) 4 Good Left Comments Generally 5/5 PT-OP-Q Treatments Start: 05/05/21 18:11 Freq: Status: Active Protocol: Document 06/02/21 12:54 LRN (Rec: 06/02/21 13:36 LRN [id number]) Gym Equipment Cable Column (Body Solid) Leg Curl Details Seat 3 holes showing Resistance 20# Reps/Time 10 Leg Extension Details Seat 3 holes showing, Resistance 10# Reps/Time 10 Shuttle Recovery Bilateral Squats Details Bilateral squats Resistance 50# Shuttle Recovery Platform Stable Reps/Time 15x 2 Therapeutic Exercises Prone Exercises MADELEINE pressups Prone Exercise Name MADELEINE press ups - limited movement Reps/Minutes 10x Comments Extra time to determine max movement Sitting Exercises Ankle EV Sitting Exercise Name Ankle EV Side bilateral Reps/Minutes 15x 2 Comments Phys & v cuing needed for proper positioning Ankle IV Sitting Exercise Name Ankle IV Side bilateral Reps/Minutes 15x 2 Comments Phys & v cuing needed for proper positioning Standing Exercises Ankle DF Standing Exercise Name Ankle DF Side bilateral Reps/Minutes 3' Ankle PF Standing Exercise Name Ankle PF Side bilateral Reps/Minutes 3' Self-Care/Home Management Treatment Education Patient Education Home Exercise Program Other Education Discussed doing DKTC stretch with a support in the low back , since her lower leg ms cramps have decreased 50% with increased water intake. Activities Self-Care/Home Management Activities Issued & reviewed HEP: MADELEINE strengthening/ROM PT-OP-T Assessment and Plan Start: 05/05/21 18:11 Freq: Status: Active Protocol: Document 06/02/21 12:54 LRN (Rec: 06/02/21 13:36 LRN [id number]) Physical Therapy Assessment Goals Three Impairment Poor tolerance to sitting > 1 hour due to pain Intermediate Goal (LTG) Reduce symptoms of pain and sensation changes with sitting 1 hour or more for relaxation at home. LTG Duration 07/07/21 Two Impairment Decreased core stability and asymmetry of pelvis. Impairment Pt not able to maintain core stability with use of R LE. R innominate anteriorly rotated and elevated R iliac creast. Short Term Goal (STG) Pt will be educated in proper posturing and body mechanics and self treatment of anteriorly rotated R innominate or normalize mechanical dysfunction. (05/12/21: Pt educated in proper posturing and body mechanics; ex's given to stabilize R innominate anterior rotation after correction). STG Duration 05/26/21 (05/12/21: Progressed) Housekeeping Manager Goal (LTG) Improve core/pelvic stability to improve tolerance (decrease pain) to make driving 1 hour or greater distance tolerable at end of drive. LTG Duration 07/07/21 One Impairment Pt not on a self care HEP Short Term Goal (STG) Pt will be able to demonstrate proper self correction of SIJ dysfunction. STG Duration 05/26/21 Housekeeping Manager Goal (LTG) Pt will be independent with a HEP and will be consistent with ex's minimally 3x/week. LTG Duration 07/07/21 (06/02/21: Progressed HEP) Progress Towards Goals Progress Comments Progressed HEP Assessment Summary Assessment Pt had good response to STM of QL and stretch to R Iliacus & Piriformis, with no complaints of increased pain. Pt has fair recall of ankle ex's, much improved after retraining. No increase in muscle cramping with new ex's (hip flexor & Piriformis). Discomfort with prone press ups unless done in very limited range. Pt felt LE strengthening felt good. Physical Therapy Plan Frequency and Duration Frequency of Treatment 2x/Week Plan of Care Start Date 05/08/21 Plan of Care End Date 07/07/21 Next Visit Focus/Plan Next Note Type Treatment Note Next Visit Plan Progress SIJ/TA stab ex's. Educate pt in self correction of SIJ dysfunction if needed ( STG #1 & #2). Review hip IR (L>R) and hip ER stretch. Assess progress towards improving sitting tolerance ( LTG #3) As needed: Manual Lumbar or R LE traction to improve sensation in LE's. R LE (hip/knee/ankle) strengthening. Review LE neural stretch if pain controlled. Progress trunk EXTENSION exercises. As needed: End with MH/IFES [ Lumbar region].
[2021-06-06 14:28] VITALS: BP 118/66; BP 118/80; BP 120/82
--- NOTE | 2021-06-06 15:38 | PT.OTN ---
Current Diagnoses Postural kyphosis, thoracic region (06/06/21) Flatback syndrome, lumbosacral region (06/06/21) Other intervertebral disc displacement, lumbar region (06/06/21) Muscle weakness (generalized) (06/06/21) Physical Therapy Treatment Note PT-OP-A Visit Information Start: 05/05/21 18:11 Freq: Status: Active Protocol: Document 06/06/21 14:28 LRN (Rec: 06/06/21 15:37 LRN [id number]) Out-Patient Physical Therapy Visit Information Visit Information Visit Type Treatment Note Visit Start Time 14:28 Visit Stop Time 15:12 Total Visit Minutes 44 Visit Number 5 Evaluation Information Evaluation Date 05/08/21 Precautions Precautions History of back pain with intial injury 05/2020. PT-OP-B Current Condition Start: 05/05/21 18:11 Freq: Status: Active Protocol: Document 05/08/21 09:01 LRN (Rec: 05/08/21 09:53 LRN [id number]) Current Condition History of Current Condition Onset Date December 2020 Current Complaints Pain sacral area and sensation changes in R LE and some in L LE. History of Current Condition States over the summer was doing gardening and is still working 72 hrs a week. Feels after the last rehab session ( 2019), had lingering tingling/ numbness in the R leg but no back pain. States she did the ex's for awhile but did not continue. Now has pain & more numbness in the lower R leg and now some in the L leg. 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 Currently she drives to [facility] for her spouse's cancer therapy. She is his primary caregiver. Walking and standing makes her feel better. Sitting and lying down makes it worse unless she has a support under the knees & no support under the back. Since her last physical therapy she has lost 10 pounds. Occasionally takes Tylenol for pain. 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 She had disc bulges from T12 to L4 . There was a disc fragment above L3-L4 and imipinging on the right L3-L4 impringing on the L3 & L4 nerve root. L4-L5 disc height loss with protrusion deviating the left L5 nerve root posteriorly. L5 vertebral body partially sacralized. Future Testing and Treatments Planned None Developmental History Developmental History Initial injury in May 2020 when she picked up a 200# object in awkward position. Treatment Goals Patient/Caregiver Goals Pt goal is: - to learn what she needs to to and priority to fix. Overall her back is not worse than when she originally came to therapy. - strengthen the core to improve tolerance (decrease pain) to driving 1 hour or greater distance . - reduce symptoms of pain and sensation changes with sitting 1 hour or more. Prior Functional Status Baseline Function- ADL's Independent Baseline Function- Mobility Independent Baseline Function- Gait Walking daily, Walks 50,000 steps a week Baseline Function- Work/School Working 30-70 hours per week, getting up to walk around every hour. Baseline Function- Recreation/Hobbies Gardening, progressively poor mechanics (bending at hips to picket [employer] objects and sometimes heavy rocks). Baseline Function- Other Able to lie at night with legs straight without back pain. Current Functional Impairments (Reported) Functional Limitations- ADL's Modified independence with daily activities due to limited mobility. Functional Limitations- Mobility/Gait No change with walking exercise ability Functional Limitations- Work/School No change with work hours. Functional Limitations- Recreation/ Limited gardening, now has Hobbies help. Functional Limitations- Other Sleeps with support under knees. Personal Factors Other Personal Factors That May Effect Caregiver for spouse with Therapy/Recovery monthly driving to [place] for doctor appt. & 3 doctor appointments per month locally . 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 Breast negative biopsies (will be checking in JUN 2021). PT-OP-C Subjective Start: 05/05/21 18:11 Freq: Status: Active Protocol: Document 06/06/21 14:28 LRN (Rec: 06/06/21 15:37 LRN [id number]) OP-PT Subjective Patient Comments Patient Comments Dizziness this morning. Picking up rocks didn't have sensation changes in leg, but onset of back. PT-OP-D Balance Start: 05/05/21 18:11 Freq: Status: Active Protocol: Document 05/12/21 13:34 LRN (Rec: 05/12/21 14:24 LRN [id number]) Balance Tests Single Limb Standing Single Limb- Right 4 Single Limb- Left 4 PT-OP-H Neuro Start: 05/05/21 18:11 Freq: Status: Active Protocol: Document 06/06/21 14:28 LRN (Rec: 06/06/21 15:37 LRN [id number]) Vital Signs Blood Pressure Standing Blood Pressure (90/60-120/80 mmHg) 120/82 H Blood Pressure Source Manual Cuff,Left Upper Extremity Sitting Blood Pressure (90/60-120/80 mmHg) 118/66 Blood Pressure Source Manual Cuff,Left Upper Extremity Supine Blood Pressure (90/60-120/80 mmHg) 118/80 Blood Pressure Source Manual Cuff,Left Upper Extremity PT-OP-J Posture/Palpation/Skin Start: 05/05/21 18:11 Freq: Status: Active Protocol: Document 05/08/21 09:01 LRN (Rec: 05/08/21 09:53 LRN [id number]) Posture Evaluation Position Standing Head/C-Spine Posture Forward Head T-Spine Posture Increased Kyphosis Shoulder Posture (R) Elevated Pelvis Posture (R) Iliac Crest Superior,(L) PSIS Posterior,(L) PSIS Inferior Weight Distribution Balanced Ankle/Foot Posture (L) Calcaneal Inversion,(R) Calcaneal Inversion Foot Arch (L) Low Arch,(R) Low Arch Toe Posture (L) Clawed Toes,(R) Clawed Toes Comments Posture Comments R PSIS is high and deep R leg long, in long-sit: R leg long. PT-OP-K Range of Motion Start: 05/05/21 18:11 Freq: Status: Active Protocol: Document 05/08/21 09:01 LRN (Rec: 05/08/21 09:53 LRN [id number]) Lumbar Spine Range of Motion Lumbar Spine Active Degrees Testing Position Standing Flexion 50 Extension 15 Comments Flexion: 50 deg's with 30 deg 's hip flexion. Extension: 15 deg's with 5 deg 's hip extension Hip Goniometric Range of Motion Hip Right Passive Hip ROM WFL No Testing Position Supine Straight Leg Raise 55 Internal Rotation 40 External Rotation 55 Left Passive Hip ROM WFL Yes Testing Position Supine Straight Leg Raise 65 Internal Rotation 25 External Rotation 55 PT-OP-M Strength Start: 05/05/21 18:11 Freq: Status: Active Protocol: Document 05/08/21 09:01 LRN (Rec: 05/08/21 09:53 LRN [id number]) Hip Strength Hip Manual Muscle Testing Right Flexion (L2) 5 Normal Abduction 4 Good Adduction 3- Fair- External Rotation 3+ Fair+ Internal Rotation 3+ Fair+ Left Comments Generally 5/5 Knee Strength Knee Manual Muscle Testing Right Flexion (S2) 4 Good Extension (L3) 4 Good Left Comments Generally 5/5 Ankle/Foot Strength Ankle and Foot Manual Muscle Testing Right Dorsiflexion (L4) 5 Normal Plantarflexion (S1) 4 Good Inversion 4 Good Eversion (S1) 4 Good Left Comments Generally 5/5 PT-OP-Q Treatments Start: 05/05/21 18:11 Freq: Status: Active Protocol: Document 06/06/21 14:28 LRN (Rec: 06/06/21 15:37 LRN [id number]) Therapeutic Exercises Supine Exercises TA with heel slides Supine Exercise Name TA with heel slide Side bilateral Reps/Minutes 4' Hip ER stretch Supine Exercise Name Fig 4 stretch Side bilateral Reps/Minutes 4' Comments Extra time taken to set pt up. Lateral hip stretch Supine Exercise Name Reviewed for HEP Side bilateral Reps/Minutes 2' TA heel slides Supine Exercise Name TA heel slides - HEP Side bilateral Reps/Minutes 4' TA tightening Supine Exercise Name TA tightening awareness training Side bilateral Reps/Minutes 8' Standing Exercises Iliopsoas stretch Standing Exercise Name Lunge into wall Side bilateral Reps/Minutes 3' Comments Extra time to determine maximal stretch & vitals assessment Self-Care/Home Management Treatment Education Patient Education Home Exercise Program Activities Self-Care/Home Management Activities Issued and physically reviewed HEP: TA supine, TA/heel slides. Issued & verbally reviewed at length abdominal core ex's and trunk extension ex's. PT-OP-T Assessment and Plan Start: 05/05/21 18:11 Freq: Status: Active Protocol: Document 06/06/21 14:28 LRN (Rec: 06/06/21 15:37 LRN [id number]) Physical Therapy Assessment Goals Three Impairment Poor tolerance to sitting > 1 hour due to pain Gastroenterology Nurse Goal (LTG) Reduce symptoms of pain and sensation changes with sitting 1 hour or more for relaxation at home. (06/06/21: Drives 2 hours with support in back, after [address] 30' without support, having discomfort in low back). LTG Duration 07/07/21 (06/06/21: MET GOAL ) Two Impairment Decreased core stability and asymmetry of pelvis. Impairment Pt not able to maintain core stability with use of R LE. R innominate anteriorly rotated and elevated R iliac creast. Short Term Goal (STG) Pt will be educated in proper posturing and body mechanics and self treatment of anteriorly rotated R innominate or normalize mechanical dysfunction. (05/12/21: Pt educated in proper posturing and body mechanics; ex's given to stabilize R innominate anterior rotation after correction). (06/06/21: Pt not needing pelvic correction; therefore goal met) STG Duration 05/26/21 (06/06/21: MET GOAL ) Gastroenterology Nurse Goal (LTG) Improve core/pelvic stability to improve tolerance (decrease pain) to make driving 1 hour or greater distance tolerable at end of drive. (06/06/21: Pt able to drive 2 hours with back support without onset of back pain at end. Pt has discomfort after 3 hours driving). LTG Duration 07/07/21 (06/06/21: MET GOAL ) One Impairment Pt not on a self care HEP Short Term Goal (STG) Pt will be able to demonstrate proper self correction of SIJ dysfunction. (06/06/21: Pt not in need of correction; therefore consider goal met). STG Duration 05/26/21 (06/06/21: MET GOAL ) Group Home Goal (LTG) Pt will be independent with a HEP and will be consistent with ex's minimally 3x/week. (06/06/21: Pt exercising 1x/ day, added to HEP progressive TA & trunk ext program) LTG Duration 07/07/21 (06/06/21: Progressed HEP) Progress Towards Goals Progress Comments STG's #1, #2 GOALS MET. LTG#2, #3 GOALS MET. Pt's sitting and driving tolerance have greatly improved. Pt's LE sensation changes are intermittent depending on activity. Assessment Summary Assessment Pt dizzy with transfers sup> sit>stand. No significant blood pressure changes; therefore pt may need physical assessment by her primary care for possible vestibular or heart health conditions. R leg is long by 5mm with level ASIS and neutral innominates. Pt is not having any back or leg discomfort or sensation changes; therefore no pelvic correction is needed . Final review and placement on written out HEP is needed. Pt needed review of hip ER stretch. She appeared to have a good recall of hip IR (L>R) stretch. Physical Therapy Plan Frequency and Duration Frequency of Treatment 2x/Week Plan of Care Start Date 05/08/21 Plan of Care End Date 07/07/21 Next Visit Focus/Plan Next Note Type Treatment Note Next Visit Plan Review and write out pt's HEP for her to follow daily. As needed: Manual Lumbar or R LE traction to improve normalization of sensation in LE's. Review TA progressive program & trunk EXTENSION progressive exercises. Review LE neural stretch if pain controlled. R LE (hip/knee/ankle) strengthening.
--- NOTE | 2021-06-09 13:15 | PT.OTN ---
Current Diagnoses Postural kyphosis, thoracic region (06/09/21) Flatback syndrome, lumbosacral region (06/09/21) Other intervertebral disc displacement, lumbar region (06/09/21) Muscle weakness (generalized) (06/09/21) Physical Therapy Treatment Note PT-OP-A Visit Information Start: 05/05/21 18:11 Freq: Status: Active Protocol: Document 06/09/21 12:51 LRN (Rec: 06/09/21 13:15 LRN [id number]) Out-Patient Physical Therapy Visit Information Visit Information Visit Type Treatment Note Visit Start Time 12:51 Visit Stop Time 13:11 Total Visit Minutes 20 Visit Number 6 Evaluation Information Evaluation Date 05/08/21 Precautions Precautions History of back pain with intial injury 05/2020. PT-OP-B Current Condition Start: 05/05/21 18:11 Freq: Status: Active Protocol: Document 05/08/21 09:01 LRN (Rec: 05/08/21 09:53 LRN [id number]) Current Condition History of Current Condition Onset Date December 2020 Current Complaints Pain sacral area and sensation changes in R LE and some in L LE. History of Current Condition States over the summer was doing gardening and is still working 72 hrs a week. Feels after the last rehab session ( 2019), had lingering tingling/ numbness in the R leg but no back pain. States she did the ex's for awhile but did not continue. Now has pain & more numbness in the lower R leg and now some in the L leg. 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 Currently she drives to [facility] for her spouse's cancer therapy. She is his primary caregiver. Walking and standing makes her feel better. Sitting and lying down makes it worse unless she has a support under the knees & no support under the back. Since her last physical therapy she has lost 10 pounds. Occasionally takes Tylenol for pain. 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 She had disc bulges from T12 to L4 . There was a disc fragment above L3-L4 and imipinging on the right L3-L4 impringing on the L3 & L4 nerve root. L4-L5 disc height loss with protrusion deviating the left L5 nerve root posteriorly. L5 vertebral body partially sacralized. Future Testing and Treatments Planned None Developmental History Developmental History Initial injury in May 2020 when she picked up a 200# object in awkward position. Treatment Goals Patient/Caregiver Goals Pt goal is: - to learn what she needs to to and priority to fix. Overall her back is not worse than when she originally came to therapy. - strengthen the core to improve tolerance (decrease pain) to driving 1 hour or greater distance . - reduce symptoms of pain and sensation changes with sitting 1 hour or more. Prior Functional Status Baseline Function- ADL's Independent Baseline Function- Mobility Independent Baseline Function- Gait Walking daily, Walks 50,000 steps a week Baseline Function- Work/School Working 30-70 hours per week, getting up to walk around every hour. Baseline Function- Recreation/Hobbies Gardening, progressively poor mechanics (bending at hips to seed cone picker objects and sometimes heavy rocks). Baseline Function- Other Able to lie at night with legs straight without back pain. Current Functional Impairments (Reported) Functional Limitations- ADL's Modified independence with daily activities due to limited mobility. Functional Limitations- Mobility/Gait No change with walking exercise ability Functional Limitations- Work/School No change with work hours. Functional Limitations- Recreation/ Limited gardening, now has Hobbies help. Functional Limitations- Other Sleeps with support under knees. Personal Factors Other Personal Factors That May Effect Caregiver for spouse with Therapy/Recovery monthly driving to [place] for doctor appt. & 3 doctor appointments per month locally . 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 Breast negative biopsies (will be checking in JUN 2021). PT-OP-C Subjective Start: 05/05/21 18:11 Freq: Status: Active Protocol: Document 06/09/21 12:51 LRN (Rec: 06/09/21 13:15 LRN [id number]) OP-PT Subjective Patient Comments Patient Comments Occasionally has strange numbness in the lateral thighs , stays for 1 hour, not a big deal, doesn't have to do anything for it. Requests only review of HEP, no exdercise. PT-OP-D Balance Start: 05/05/21 18:11 Freq: Status: Active Protocol: Document 05/12/21 13:34 LRN (Rec: 05/12/21 14:24 LRN [id number]) Balance Tests Single Limb Standing Single Limb- Right 4 Single Limb- Left 4 PT-OP-H Neuro Start: 05/05/21 18:11 Freq: Status: Active Protocol: Document 06/06/21 14:28 LRN (Rec: 06/06/21 15:37 LRN [id number]) Vital Signs Blood Pressure Standing Blood Pressure (90/60-120/80 mmHg) 120/82 H Blood Pressure Source Manual Cuff,Left Upper Extremity Sitting Blood Pressure (90/60-120/80 mmHg) 118/66 Blood Pressure Source Manual Cuff,Left Upper Extremity Supine Blood Pressure (90/60-120/80 mmHg) 118/80 Blood Pressure Source Manual Cuff,Left Upper Extremity PT-OP-J Posture/Palpation/Skin Start: 05/05/21 18:11 Freq: Status: Active Protocol: Document 05/08/21 09:01 LRN (Rec: 05/08/21 09:53 LRN [id number]) Posture Evaluation Position Standing Head/C-Spine Posture Forward Head T-Spine Posture Increased Kyphosis Shoulder Posture (R) Elevated Pelvis Posture (R) Iliac Crest Superior,(L) PSIS Posterior,(L) PSIS Inferior Weight Distribution Balanced Ankle/Foot Posture (L) Calcaneal Inversion,(R) Calcaneal Inversion Foot Arch (L) Low Arch,(R) Low Arch Toe Posture (L) Clawed Toes,(R) Clawed Toes Comments Posture Comments R PSIS is high and deep R leg long, in long-sit: R leg long. PT-OP-K Range of Motion Start: 05/05/21 18:11 Freq: Status: Active Protocol: Document 05/08/21 09:01 LRN (Rec: 05/08/21 09:53 LRN [id number]) Lumbar Spine Range of Motion Lumbar Spine Active Degrees Testing Position Standing Flexion 50 Extension 15 Comments Flexion: 50 deg's with 30 deg 's hip flexion. Extension: 15 deg's with 5 deg 's hip extension Hip Goniometric Range of Motion Hip Right Passive Hip ROM WFL No Testing Position Supine Straight Leg Raise 55 Internal Rotation 40 External Rotation 55 Left Passive Hip ROM WFL Yes Testing Position Supine Straight Leg Raise 65 Internal Rotation 25 External Rotation 55 PT-OP-M Strength Start: 05/05/21 18:11 Freq: Status: Active Protocol: Document 05/08/21 09:01 LRN (Rec: 05/08/21 09:53 LRN [id number]) Hip Strength Hip Manual Muscle Testing Right Flexion (L2) 5 Normal Abduction 4 Good Adduction 3- Fair- External Rotation 3+ Fair+ Internal Rotation 3+ Fair+ Left Comments Generally 5/5 Knee Strength Knee Manual Muscle Testing Right Flexion (S2) 4 Good Extension (L3) 4 Good Left Comments Generally 5/5 Ankle/Foot Strength Ankle and Foot Manual Muscle Testing Right Dorsiflexion (L4) 5 Normal Plantarflexion (S1) 4 Good Inversion 4 Good Eversion (S1) 4 Good Left Comments Generally 5/5 PT-OP-Q Treatments Start: 05/05/21 18:11 Freq: Status: Active Protocol: Document 06/09/21 12:51 LRN (Rec: 06/09/21 13:15 LRN [id number]) Self-Care/Home Management Treatment Education Patient Education Home Exercise Program Other Education Discussed use of walking for hip/knee/ankle strengthening. Activities Self-Care/Home Management Activities 15' Review of HEP. PT-OP-T Assessment and Plan Start: 05/05/21 18:11 Freq: Status: Active Protocol: Document 06/09/21 12:51 LRN (Rec: 06/09/21 13:15 LRN [id number]) Physical Therapy Assessment Goals Three Impairment Poor tolerance to sitting > 1 hour due to pain [facility] Goal (LTG) Reduce symptoms of pain and sensation changes with sitting 1 hour or more for relaxation at home. (06/06/21: Drives 2 hours with support in back, after [address] 30' without support, having discomfort in low back). LTG Duration 07/07/21 (06/06/21: MET GOAL ) Two Impairment Decreased core stability and asymmetry of pelvis. Impairment Pt not able to maintain core stability with use of R LE. R innominate anteriorly rotated and elevated R iliac creast. Short Term Goal (STG) Pt will be educated in proper posturing and body mechanics and self treatment of anteriorly rotated R innominate or normalize mechanical dysfunction. (05/12/21: Pt educated in proper posturing and body mechanics; ex's given to stabilize R innominate anterior rotation after correction). (06/06/21: Pt not needing pelvic correction; therefore goal met) STG Duration 05/26/21 (06/06/21: MET GOAL ) Coater Hand Goal (LTG) Improve core/pelvic stability to improve tolerance (decrease pain) to make driving 1 hour or greater distance tolerable at end of drive. (06/06/21: Pt able to drive 2 hours with back support without onset of back pain at end. Pt has discomfort after 3 hours driving). LTG Duration 07/07/21 (06/06/21: MET GOAL ) One Impairment Pt not on a self care HEP Short Term Goal (STG) Pt will be able to demonstrate proper self correction of SIJ dysfunction. (06/06/21: Pt not in need of correction; therefore consider goal met). STG Duration 05/26/21 (06/06/21: MET GOAL ) [facility] Goal (LTG) Pt will be independent with a HEP and will be consistent with ex's minimally 3x/week. (06/06/21: Pt exercising 1x/ day, added to HEP progressive TA & trunk ext program) LTG Duration 07/07/21 (06/09/21: MET GAOL ) Assessment Summary Assessment Pt feels 98% recovered and ready to be placed on her independent HEP. Declined review of TA progressive program & trunk EXTENSION progressive exercises. Pt felt further exercise was not needed due to her active lifestyle. Pt is ready for discharge to her independent HEP. Physical Therapy Plan Frequency and Duration Frequency of Treatment 2x/Week Plan of Care Start Date 05/08/21 Plan of Care End Date 07/07/21 Discharge Physical Therapy Discharge Reasons Goals Met Discharge Comments Thank you for your referral.
== END 2021-06-22 14:02 ==
LOC: PHYS 12:45
PROVIDERS: PCP Internal Medicine; Referring Provider Internal Medicine; Visit Provider Internal Medicine
DX: M51.26 Other intervertebral disc displacement, lumbar region (principal); M62.81 Muscle weakness (generalized); M40.37 Flatback syndrome, lumbosacral region; M40.04 Postural kyphosis, thoracic region
CPT/HCPCS: 97110; 97140; 97162; 97535

== ENCOUNTER → 2021-09-25 14:10 | Outpatient (CLI) | payer MEDICARE, OTHER, SELFPAY ==
--- NOTE | 2021-09-25 | DI.MG.S_ITS ---
BILATERAL DIGITAL DIAGNOSTIC MAMMOGRAM 3D/2D: 09/25/2021 CLINICAL: Late short term follow up, due bilateral. Comparison is made to exams dated: 01/02/2021 mammogram, 07/18/2020 mammogram - [facility], and 06/05/2019 mammogram - [facility]. The tissue of both breasts is heterogeneously dense. This may lower the sensitivity of mammography. There is a global asymmetry in the left breast upper outer aspect middle depth. This is not significantly changed. There also are stable grouped calcifications in the left breast central to the nipple middle depth. No other significant masses, calcifications, or other findings are seen in either breast. IMPRESSION: INCOMPLETE: NEEDS ADDITIONAL IMAGING EVALUATION The global asymmetry in the left breast upper outer aspect middle depth remains indeterminate. Targeted ultrasound is recommended for follow up of ultrasound findings and will be performed immediately following this exam. This exam was interpreted at Station ID: [id number]. NOTE: For mammograms, a report in lay terms will be sent to the patient. Approximately 15% of breast malignancies will not be visualized mammographically. In the management of a palpable breast mass, a negative mammogram must not discourage biopsy of a clinically suspicious lesion. Electronically Signed By: Andrea Vincent M.D. aty/:09/25/2021 15:36:16 copy to: Dr. Sykes, Dr. Sykes, [facility], ph: [phone] [facility] BI-RADS Category 0: Incomplete [id number]
--- NOTE | 2021-09-25 | DI.US.S_ITS ---
ULTRASOUND OF LEFT BREAST: 09/25/2021 CLINICAL: Patient returns for a 6 month follow up of the left breast. Comparison is made to exams dated: 09/25/2021 mammogram, 01/02/2021 ultrasound, 01/02/2021 mammogram, 07/18/2020 ultrasound, 07/18/2020 mammogram - [facility], and 06/05/2019 mammogram - [facility]. Color flow and real-time ultrasound of the left breast were performed. Leos scale images of the real-time examination were reviewed. There is a 0.6 cm x 0.4 cm x 0.4 cm oval cyst with a smooth internal wall in the left breast at 3 o'clock retroareolar/anterior depth. This oval cyst is hypoechoic with internal echoes. This abnormality is not significantly changed. There also is a 0.6 cm x 0.5 cm x 0.6 cm irregular area of fibrocystic tissue versus ectactic duct in the left breast at 3 o'clock in the retroareolar region. This hypoechoic area appears more cystic on today's study and favored to be ducts. This abnormality is less prominent. Color flow imaging demonstrates that there is no vascularity present. Additionally, there are a few areas of 3 mm to 5 mm oval cysts in the left breast superior lateral quadrant middle depth. These 3 mm to 5 mm oval cysts are hypoechoic with internal echoes. These correlate area of stable palpable tissue and are likely incidental. Color flow imaging demonstrates that there is no vascularity present. IMPRESSION: PROBABLY BENIGN The 0.6 cm x 0.4 cm x 0.4 cm oval cyst in the left breast at 3 o'clock anterior depth is consistent with a complex cyst and is probably benign. The 0.6 cm x 0.5 cm x 0.6 cm irregular area of fibrocystic tissue versus ductal ectasia in the left breast at 3 o'clock in the retroareolar region is probably benign. The ajacent 3 mm to 5 mm oval cysts in the left breast superior lateral quadrant middle depth most likely are complicated cysts and although are near area of prior benign excisional biopsy are likely incidental findings which are probably benign. A follow-up left ultrasound in 6 months is recommended to demonstrate stability. Findings and recommendations were conveyed to the patient during today's evaluation. This exam was interpreted at Station ID: [id number]. Electronically Signed By: Andrea messina/:09/25/2021 16:23:09 copy to: Dr. Sykes, Dr. Sykes, [facility], ph: [phone] letter sent: Followup Recommended Ultrasound BI-RADS: 3 Probably benign
== END ==
PROVIDERS: PCP Internal Medicine; Referring Provider Internal Medicine; Visit Provider Internal Medicine
DX: R92.8 Other abnormal and inconclusive findings on diagnostic imaging of breast; N64.89 Other specified disorders of breast; N60.02 Solitary cyst of left breast
CPT/HCPCS: 76642; 77066; G0279

== ENCOUNTER → 2021-09-27 16:32 | Outpatient (CLI) | payer MEDICARE, OTHER, SELFPAY ==
--- NOTE | 2021-09-27 | DI.RAD.S_ITS ---
PROCEDURE: XR FOOT LT MIN 3V INDICATIONS: TOE DEFORMITY TECHNIQUE: 3 views of the foot were acquired. COMPARISON: None. FINDINGS: Bones: No fractures or dislocations. No suspicious bony lesions. Fifth toe varus deformity noted. Lateral bunion noted. Mild 1st CMC joint osteoarthritis. Soft tissues: No tibiotalar joint effusion. Achilles tendon appears normal. IMPRESSION: 5th toe varus deformity and small lateral bunion. Dictated by: Adriana Dupree MD, PhD on 09/28/2021 at 9:50 Approved by: Adriana Dupree MD, PhD on 09/28/2021 at 9:52
--- NOTE | 2021-09-27 | DI.RAD.S_ITS ---
PROCEDURE: XR FOOT RT MIN 3V INDICATIONS: TOE DEFORMITY TECHNIQUE: 3 views of the foot were acquired. COMPARISON: None. FINDINGS: Bones: No fractures or dislocations. No suspicious bony lesions. Moderate 1st MTP joint osteoarthritis. Soft tissues: No tibiotalar joint effusion. Achilles tendon appears normal. IMPRESSION: Moderate 1st MTP joint osteoarthritis. Dictated by: Adriana Dupree MD, PhD on 09/28/2021 at 9:54 Approved by: Adriana Dupree MD, PhD on 09/28/2021 at 9:54
== END ==
PROVIDERS: PCP Internal Medicine; Referring Provider Podiatrist; Visit Provider Podiatrist
DX: M20.62 Acquired deformities of toe(s), unspecified, left foot (principal); M20.61 Acquired deformities of toe(s), unspecified, right foot; M21.612 Bunion of left foot; M21.611 Bunion of right foot; M19.071 Primary osteoarthritis, right ankle and foot; M19.072 Primary osteoarthritis, left ankle and foot
CPT/HCPCS: 73630

== ENCOUNTER → 2022-04-27 12:12 | Outpatient (CLI) | payer MEDICARE, OTHER, SELFPAY ==
--- NOTE | 2022-04-27 | DI.MG.S_ITS ---
UNILATERAL LEFT DIGITAL DIAGNOSTIC MAMMOGRAM 3D/2D: 04/27/2022 CLINICAL: Short term follow up for the left breast. Comparison is made to exams dated: 09/25/2021 ultrasound, 09/25/2021 mammogram, 01/02/2021 ultrasound, and 01/02/2021 mammogram - [facility]. The left breast is heterogeneously dense, which may obscure small masses (category c / 51-75% glandular tissue). No significant masses, calcifications, or other findings are seen in the breast. IMPRESSION: INCOMPLETE: NEEDS ADDITIONAL IMAGING EVALUATION There is no abnormality seen in the left breast to correspond with the previously reported mammography finding in the upper outer quadrant which is consistent with normal fibroglandular tissue. Targeted ultrasound is separately reported for followup of previously noted findings seen on ultrasound. Based on the Tyrer Cuzick model (a risk assessment model) the patient's lifetime risk is 10.4% and her 10 year risk is 6.6%. According to the ACR, ACS, and NCCN guidelines, an annual breast MRI exam along with mammogram is recommended if the patient's lifetime risk is 20% or greater. This exam was interpreted at Station ID: [id number]. NOTE: For mammograms, a report in lay terms will be sent to the patient. Approximately 15% of breast malignancies will not be visualized mammographically. In the management of a palpable breast mass, a negative mammogram must not discourage biopsy of a clinically suspicious lesion. Electronically Signed By: Charles Loaiza M.D. lc/:04/30/2022 13:02:50 copy to: Dr. ySkes, Dr. Sykes, [facility], ph: [phone] ACR BI-RADS Category 0: Incomplete 3340F
--- NOTE | 2022-04-27 13:04 | DI.US.S_ITS ---
Procedure: US breast LT limited ULTRASOUND OF LEFT BREAST AND AXILLA: 04/27/2022 CLINICAL: Patient returns today to evaluate a focal asymmetry in the left breast. Comparison is made to exams dated: 04/27/2022 mammogram, 09/25/2021 ultrasound, 01/02/2021 ultrasound, 09/25/2021 mammogram, 01/02/2021 mammogram, and 07/18/2020 ultrasound - [facility]. Color flow, real-time, and Doppler ultrasound of the left breast axilla were performed. Leos scale images of the real-time examination were reviewed. There is a new intraductal 0.6 cm x 0.4 cm x 0.5 cm oval mass with a circumscribed margin in the left breast at 4 o'clock in the retroareolar region 1 cm from the nipple. This oval mass is isoechoic. The adjacent duct is dilated. There are clustered microcysts in the left breast, for example measuring 0.6cm at 1:00 3cm from the nipple, and 0.5cm at 3:00 retroareolar region. These are stable from prior ultrasound. No significant abnormalities were seen sonographically in the left axilla. IMPRESSION: SUSPICIOUS OF MALIGNANCY The new 0.6 cm x 0.4 cm x 0.5 cm oval intraductal mass in the left breast is at a low suspicion for malignancy. An ultrasound guided biopsy is recommended. Otherwise, there is no actionable abnormality seen in the left breast. Clustered microcysts are seen, as described above, stable from prior imaging. No significant abnormalities were seen sonographically in the left axilla. Continued Report - Page 2 of 2 Patient Name: SURINDER SAEED date: 1950 Sex: F Attending Physician: Sandro Indications: Date: 04/27/2022 13:49 At the request of: NICOLE LANTIGUA Procedure: US breast LT limited This exam was interpreted at Station ID: [id number]. Electronically Signed By: Charles Loaiza M.D. lc/:04/27/2022 14:42:58 copy to: Dr. Sykes, Dr. Sykes, [facility], ph: [phone] letter sent: Biopsy Required Ultrasound BI-RADS: 4a Low suspicion for malignancy
== END ==
PROVIDERS: PCP Internal Medicine; Referring Provider Internal Medicine; Visit Provider Internal Medicine
DX: R92.8 Other abnormal and inconclusive findings on diagnostic imaging of breast (principal)
CPT/HCPCS: 76642; 77065; G0279

== ENCOUNTER → 2022-10-06 11:07 | Outpatient (CLI) | payer MEDICARE, OTHER, SELFPAY | PROVIDERS: PCP Internal Medicine; Visit Provider Nurse Practitioner Family | DX: R30.0 Dysuria (principal) | CPT/HCPCS: 87210 ==

== ENCOUNTER → 2022-12-25 10:44 | Outpatient (CLI) | payer MEDICARE, OTHER, SELFPAY ==
[2022-12-25 13:50] LABS: Cholesterol 218 mg/dL (140-199); HDL Cholesterol 97 mg/dL (40-60); LDL Cholesterol Calculated 110 mg/dL (<100); Triglycerides 57 mg/dL (35-150)
== END ==
PROVIDERS: PCP Internal Medicine; Referring Provider Nurse Practitioner Women's Health; Visit Provider Nurse Practitioner Women's Health
DX: Z13.220 Encounter for screening for lipoid disorders (principal); A60.9 Anogenital herpesviral infection, unspecified
CPT/HCPCS: 36415; 80061; 86694; 86695; 86696

== ENCOUNTER 2023-03-05 22:03 | Emergency (ER) | payer MEDICARE, OTHER, SELFPAY ==
[2023-03-05 22:10] VITALS: BP 143/70; PULSE 71; RESP 18; TEMP 36.6; O2SAT 99; BMI 21.4
[2023-03-05] MEDS: TET,DIPH,PERTUSS(ACELL),VAC/PF 0.5 ML SYRINGE IM (22:23)
--- NOTE | 2023-03-06 00:13 | ED.ANIMALBIT ---
HPI - Animal Bite General Chief Complaint: Animal Bite Stated Complaint: dog bite to left calf Time Seen by Provider: 03/05/23 22:12 Source: patient Mode of arrival: Ambulatory History of Present Illness HPI narrative: 72-year-old female nonsmoker with noncontributory medical history presents for evaluation of a dog bite to her left posterior calf just prior to arrival. She was on a local trail when she passed a small dog on a leash, she bent down to pet it and when it walked by her the dog turned and nipped her on the calf. It is a healthy-appearing dog and she initially did not even think it broke the skin as she was wearing pants and thought it must have just nipped at the pants. Once she got home she realized that her skin has been broken and she was bleeding a bit. She presents for evaluation Related Data Home Medications Medication Instructions Recorded Confirmed acetaminophen 325 mg tablet 325 mg PO ONCE PRN 06/08/20 10/06/22 (Tylenol) cholecalciferol (vitamin D3) 50 50 mcg PO DAILY 06/08/20 10/06/22 mcg (2,000 unit) tablet estradiol 0.75 mg/0.75 gram (0.1%) 1 packet transdermal DAILY 06/08/20 10/06/22 transdermal gel packet ibuprofen 200 mg capsule 200 mg PO Q6H PRN 06/08/20 10/06/22 Previous Rx's Medication Instructions Recorded gabapentin 300 mg capsule 300 mg PO .COMPLEX #90 caps 06/08/20 methylprednisolone 4 mg tablets in See Rx Instructions PO PER PKG DIR 06/08/20 a dose pack (Medrol (Jose)) radiculopathy #21 ea phenazopyridine 200 mg tablet 200 mg PO TID 6 doses #6 tabs 10/06/22 (Pyridium) doxycycline hyclate 100 mg tablet 100 mg PO BID #20 tabs 03/06/23 metronidazole 500 mg tablet 500 mg PO Q8H #30 tabs 03/06/23 Allergies Allergy/AdvReac Type Severity Reaction Status Date / Time Penicillins Allergy Intermediate HIVES Verified 10/06/22 10:56 Review of Systems Review of Systems Narrative: GENERAL: Denies chills, fatigue, malaise, fever, sweats. HEENT: Denies sinus pain, ear pain, sore throat, difficulty swallowing, dizziness. RESPIRATORY: Denies dyspnea, cough, wheezing, hemoptysis, sputum. CARDIOVASCULAR: Denies chest pain, palpitations, orthopnea, edema, GASTROINTESTINAL: Denies nausea, vomiting, abdominal pain, diarrhea, constipation, melena. : Denies dysuria, frequency, incontinence, hematuria, urinary retention. MUSCULOSKELETAL: denies weakness, joint pain, or bony pain SKIN: See HPI NEUROLOGIC: Denies weakness, headache, numbness, change in speech, confusion, seizures, incoordination. PSYCHIATRIC: No concerning psychosocial issues. 12 point review of systems is negative except for those stated above Patient History Medical History Herniated nucleus pulposus, L3-4 right Lumbar radiculopathy Surgical History H/O breast biopsy H/O dilation and curettage H/O eye surgery Family History Father Congestive heart failure Unknown Cancer Social History Smoking Status: Never smoker Smoking Status: Never smoker Substance Use Type: does not use Exam Narrative Exam Narrative: GEN: AOx3 and in mild distress EYES: Pupils are equal, round, and reactive to light and accommodation. Extraoccular muscles are intact bilaterally. There is no subconjunctival hemorrhage or exudate. CHEST: Lungs are clear to auscultation bilaterally and free of wheezes, rales, or rhonchi. Heart rate is regular rhythm, there are no murmurs, clicks, rubs, or gallops. There is no chest wall tenderness. ABD: Abdomen is soft and nontender. There is no guarding or rebound. Bowel sounds are normal in all 4 quadrants. There is no mass or organomegaly. EXT: Full painless ROM of all extremities with no loss of sensation or strength. SKIN: Small very superficial 2 cm laceration to left lateral calf, no active bleeding or evidence of foreign body, few small puncture wounds adjacent, not large enough to require repair, no active bleeding or evidence of foreign body Initial Vital Signs Initial Vital Signs: Vital Signs Temperature 98 F 03/05/23 22:10 Pulse Rate 71 03/05/23 22:10 Respiratory Rate 18 03/05/23 22:10 Blood Pressure 143/70 H 03/05/23 22:10 Pulse Oximetry 99 03/05/23 22:10 Oxygen Delivery Method Room Air 03/05/23 22:10 Course Orders Ordered: Discontinued Medications Diphtheria/Tetanus/Acell Pertussis (Tet,Diph,Pertuss(Acell),Vac/Pf 0.5 Ml Syringe) 0.5 ml IM .ONCE ONE Stop: 03/05/23 22:20 Last Admin: 03/05/23 22:23 Dose: 0.5 ml Documented By: LYNDA Doxycycline Hyclate (Doxycycline Hyclate 100 Mg Tablet) 100 mg PO NOW ONE Stop: 03/06/23 00:12 Last Admin: 03/06/23 00:17 Dose: 100 mg Documented By: ROHINI Metronidazole (Metronidazole 500 Mg Tablet) 500 mg PO NOW ONE Stop: 03/06/23 00:12 Last Admin: 03/06/23 00:17 Dose: 500 mg Documented By: ROHINI Vital Signs Vital signs: Vital Signs - 8 hr 03/05/23 22:10 03/06/23 00:35 Temperature 98 F Pulse Rate 71 68 Respiratory Rate 18 18 Blood Pressure 143/70 H 139/65 Pulse Oximetry 99 99 Oxygen Delivery Method Room Air Room Air MDM - Animal Bite MDM Narrative Medical decision making narrative: [72] year old patient presents with dog bite to left calf Prior Charts reviewed in our EMR Primary Historian: patient Patient with reassuring history and physical exam, well-appearing dog bit her after passing her on the trail. Tetanus is updated, wound cleansed by nursing, not sufficiently deep or gaping to require sutures or other closure technique. Patient does have a significant allergy to penicillin so she is given 1st dose of doxycycline and Flagyl here and prescription sent to her pharmacy of choice. Return precautions discussed and questions answered to her apparent satisfaction Findings and discharge diagnosis discussed with patient/family followed by verbalization of understanding Return precautions discussed with patient/family whom verbalize understanding of diagnosis and plan Discharge Plan Departure Patient Disposition: Home Clinical Impression: Dog bite of left calf Instructions: DI for Dog Bite Activity Restrictions/Additional Instructions: *You have been diagnosed with [dog bite to left calf. As we discussed your history and physical exam are reassuring. Your tetanus was updated and you were given 1st round of antibiotics, the remainder of the prescriptions have been sent to the pharmacy of your choice.] *What to do: *Please continue to take your regular medications as directed. [2 ] New medication prescriptions sent to your pharmacy: [[facility] ] [ ] New medication written as a paper prescription [ ] No new medications given *Please follow up with your primary care provider in 2-3 days, call for an appointment. Let them know you were seen in the Emergency Department and that we ask that you be seen in follow up. We will electronically transmit a record of today's note if your PCP is in our system *Return to Emergency Department if you should have any new, worsening or concerning symptoms, such as [fever greater than 101 F, shaking chills, worsening pain, persistent vomiting or other bothersome symptoms] Prescriptions: New doxycycline hyclate 100 mg tablet 100 mg PO BID Qty: 20 0RF metronidazole 500 mg tablet 500 mg PO Q8H Qty: 30 0RF No Action phenazopyridine [Pyridium] 200 mg tablet 200 mg PO TID 0 Days Qty: 6 0RF acetaminophen [Tylenol] 325 mg tablet 325 mg PO ONCE PRN cholecalciferol (vitamin D3) 50 mcg (2,000 unit) tablet 50 mcg PO DAILY estradiol 0.75 mg/0.75 gram (0.1%) gel in packet 1 packet transdermal DAILY ibuprofen 200 mg capsule 200 mg PO Q6H PRN gabapentin 300 mg capsule 300 mg PO .COMPLEX Qty: 90 2RF Rx Instructions: 1-2 PO Tid to begin at HS and titrate to pain relief methylprednisolone [Medrol (Jose)] 4 mg tablets,dose pack See Rx Instructions PO PER PKG DIR Qty: 21 0RF Rx Instructions: PO PER PKG DIR Referrals: Archana Jo MD [Primary Care Provider] - Stand Alone Forms: Patient Portal/API
[2023-03-06] MEDS: DOXYCYCLINE HYCLATE 100 MG TABLET PO (00:17)
[2023-03-06] MEDS: metroNIDAZOLE 500 MG TABLET PO (00:17)
[2023-03-06 00:35] VITALS: BP 139/65; PULSE 68; RESP 18; O2SAT 99
== END 2023-03-06 00:36 | disposition home or self-care (01) ==
PROVIDERS: Emergency Provider Emergency Medicine; PCP Internal Medicine
DX: S81.852A Open bite, left lower leg, initial encounter (principal); W54.0XXA Bitten by dog, initial encounter; Z23 Encounter for immunization
CPT/HCPCS: 90471; 99283; 90715

== ENCOUNTER → 2024-02-04 09:29 | Outpatient (CLI) | payer MEDICARE, OTHER, SELFPAY ==
--- NOTE | 2024-02-04 | DI.US.S_ITS ---
PROCEDURE: US CAROTID DOPPLER BI INDICATIONS: Disorder of arteries and arterioles TECHNIQUE: Color and pulse Doppler interrogation was performed of both carotid systems, with image documentation and velocity measurements. COMPARISON: None. FINDINGS: Stenosis calculations are based on SRU (Society of Radiologists in Ultrasound) criteria. Right side: Brachial blood pressure: 114 mm Hg. Common carotid artery peak systolic velocity: 68 cm/sec. Internal carotid artery peak systolic velocity: 72 cm/sec. Internal carotid artery end diastolic velocity: 29 cm/sec. External carotid artery peak systolic velocity: 55 cm/sec. ICA/CCA peak systolic ratio: 1.1 . Leos scale imaging description: No significant atherosclerotic plaque. Percent internal carotid artery stenosis: Normal . Vertebral artery: Flow direction is antegrade. Left side: Brachial blood pressure: 118 mm Hg. Common carotid artery peak systolic velocity: 72 cm/sec. Internal carotid artery peak systolic velocity: 107 cm/sec. Internal carotid artery end diastolic velocity: 35 cm/sec. External carotid artery peak systolic velocity: 41 cm/sec. ICA/CCA peak systolic ratio: 1.5 . Leos scale imaging description: No significant atherosclerotic plaque Percent internal carotid artery stenosis: Normal . Vertebral artery: Flow direction is antegrade. IMPRESSION: Normal bilateral internal carotid arteries with no significant stenosis. Dictated by: Ron Holt M.D. on 02/05/2024 at 15:27 Approved by: Ron Holt M.D. on 02/05/2024 at 15:28
== END ==
PROVIDERS: PCP Internal Medicine
DX: I77.9 Disorder of arteries and arterioles, unspecified (principal)
CPT/HCPCS: 93880

== ENCOUNTER → 2024-03-20 11:22 | Outpatient (CLI) | payer MEDICARE, OTHER, SELFPAY | PROVIDERS: PCP Internal Medicine; Visit Provider Physician Assistant Surgical | DX: R39.9 Unspecified symptoms and signs involving the genitourinary system (principal); N94.89 Other specified conditions associated with female genital organs and menstrual cycle | CPT/HCPCS: 87077; 87086; 87186; 87210 ==

== ENCOUNTER → 2024-03-27 17:41 | Outpatient (CLI) | payer MEDICARE, OTHER, SELFPAY ==
[2024-03-27 20:23] LABS: Influenza A - CEPHEID Flu A NEGATIVE (NEGATIVE); Influenza B - CEPHEID Flu B NEGATIVE (NEGATIVE); Respiratory Syncytial Virus Negative (Negative)
[2024-03-27 20:42] LABS: COVID-19 CEPHEID 4-PLEX PCR Negative (Negative)
== END ==
PROVIDERS: PCP Internal Medicine; Visit Provider Nurse Practitioner Family
DX: R50.9 Fever, unspecified (principal)
CPT/HCPCS: 0241U; 87077; 87086; 87186

== ENCOUNTER → 2025-07-31 10:39 | Outpatient (CLI) | payer MEDICARE, OTHER, SELFPAY ==
--- NOTE | 2025-07-31 10:41 | DI.MRI.S_ITS ---
PROCEDURE: MR HEAD/BRAIN WO/W CON INDICATIONS: COGNITIVE IMPAIRMENT TECHNIQUE: Noncontrast axial T1 spin echo, axial T2 fast spin echo, sagittal and axial FLAIR, coronal T2 fast spin echo, axial gradient echo, axial diffusion and ADC through the brain. After the administration of contrast, axial and coronal and sagittal T1 spin echo with fat saturation through the brain. COMPARISON: None. FINDINGS: Image quality: Excellent. CSF spaces: Basal cisterns are patent. No extra-axial fluid collections. Ventricles are normal in size and shape. Brain: No midline shift. No intracranial bleeds or masses. No abnormal intracranial enhancement. There is mild cerebral volume loss for age. There is minimal periventricular white matter chronic small vessel ischemic change. The brainstem appears normal. Diffusion-weighted images demonstrate no acute infarct. No chronic ischemic insults. Normal intravascular flow voids are present. Skull and face: Calvarial marrow is normal in signal. Bilateral lens replacements. Otherwise, the orbits are unremarkable. Sinuses: Sinuses and mastoids appear clear. IMPRESSION: Mild age-related global volume loss and minimal chronic microvascular ischemic change. No acute intracranial abnormalities or abnormal intracranial enhancement. Approved by: Benigno Jacobson M.D. on 08/03/2025 at 11:21
== END ==
PROVIDERS: PCP Internal Medicine; Referring Provider Internal Medicine; Visit Provider Internal Medicine
DX: R41.89 Other symptoms and signs involving cognitive functions and awareness (principal)
CPT/HCPCS: 70553; A9579